=== PATIENT | male | born 1945 | race Hispanic/Latino ===

== ENCOUNTER 2020-07-13 14:02 | Inpatient (IN) | payer MEDICARE, OTHER ==
--- NOTE | 2020-07-13 16:17 | Cat Scan Report ---
CT BRAIN: 07/13/2020 INDICATION / CLINICAL INFORMATION: Altered Mental Status. COMPARISON: None available. FINDINGS: BRAIN/INTRACRANIAL STRUCTURES: Unenhanced CT images of the brain demonstrate no evidence of acute int racranial abnormality. Ventricles and sulci are prominent in size, consistent with prominent diffuse cerebral atrophy. There is no evidence of acute ischemic injury, hemorrhage, or mass. There are no abnormal extra-axial fluid collections. Atherosclerotic vascular calcifications are present in the distal internal carotid arteries and verte bral arteries. EXTRACRANIAL STRUCTURES: Unremarkable. IMPRESSION: No acute abnormality. Diffuse cerebral atrophy. All CT scans at this location are performed using dose reduction to ALARA by means of automated expos ure control. Signer Name: Ji Wolff MD Signed: 07/13/2020 4:12 PM Workstation Name: [id number]
[2020-07-13 16:32] LABS: Basophils % (Auto) 1.3 % (0.0-1.8); Eosinophils # (Auto) 0.1 K/mm3 (0.0-0.4); Hematocrit 40.3 % (35.5-45.6); Hemoglobin 13.1 gm/dl (11.8-15.2); Lymphocytes % (Auto) 25.7 % (13.4-35.0); Mean Corpuscular HGB Conc 33 % (32-34); Mean Corpuscular Volume 97 fl (84-94); Monocytes # (Auto) 0.3 K/mm3 (0.0-0.8); Monocytes % (Auto) 8.6 % (0.0-7.3); Red Blood Count 4.14 M/mm3 (3.65-5.03); Red Cell Distribution Width 17.3 % (13.2-15.2)
[2020-07-13 16:35] LABS: Platelet Count 92 K/mm3 (140-440)
--- NOTE | 2020-07-13 16:36 | XRay Report ---
CHEST 1 VIEW INDICATION: Altered Mental Status. COMPARISON: None FINDINGS: Support devices: None. Heart: Within normal limits. Lungs/Pleura: No acute air space or interstitial disease. Additional findings: None. IMPRESSION: No acute findings. Signer Name: Eric Dale Jr, MD Signed: 07/13/2020 4:31 PM Workstation Name: [id number]
[2020-07-13 16:42] LABS: INR 0.89 (0.87-1.13)
[2020-07-13 16:43] LABS: Partial Thromboplastin Time 26.7 Sec. (24.2-36.6)
[2020-07-13 16:55] LABS: Albumin 3.4 g/dL (3.9-5); Calcium 9.2 mg/dL (8.4-10.2)
[2020-07-13 17:20] LABS: Chol/HDL Ratio 3.1 %
[2020-07-13] MEDS ORDERED: niCARdipine DRIP 40 MG/200 ML BAG IV ONE (18:37)
--- NOTE | 2020-07-13 18:42 | Emergency Department Report ---
ED General Adult HPI - General Chief complaint: High BP Stated complaint: HIGH BLOOD PRESSURE Time Seen by Provider: 07/13/20 14:50 Source: EMS Mode of arrival: Stretcher Limitations: No Limitations - History of Present Illness Initial comments: Patient presents to the emergency department from a local dialysis center for altered mental status. Per reports the patient has baseline dementia but is normally able to carry on conversation. They state after dialysis the patient was confused and is not able to answer questions. It was also noticed that he was bleeding from his AV fistula and he was severely hypertensive. Patient is unable to add to history. -: Sudden Radiation: non-radiation Consistency: constant Improves with: none Worsens with: none Treatments Prior to Arrival: none - Related Data Home Medications Medication Instructions Recorded Confirmed Last Taken Aspirin [Adult Aspirin] 81 mg PO DAILY 07/13/20 07/13/20 Unknown Atorvastatin Calcium [Lipitor] 10 mg PO DAILY 07/13/20 07/13/20 Unknown Gabapentin [Neurontin] 200 mg PO Q2D 07/13/20 07/13/20 Unknown Insulin Glargine [Lantus VIAL] 5 unit SUB-Q BID 07/13/20 07/13/20 Unknown Tamsulosin [Flomax] 0.4 mg PO QDAY 07/13/20 07/13/20 Unknown Venlafaxine [Effexor 25mg tab] 25 mg PO BID 07/13/20 07/13/20 Unknown allopurinoL [Zyloprim] 100 mg PO QDAY 07/13/20 07/13/20 Unknown cloNIDine [Catapres] 0.3 mg PO BID 07/13/20 07/13/20 Unknown Allergies Allergy/AdvReac Type Severity Reaction Status Date / Time acetaminophen [From Percocet] Allergy Unknown Verified 07/13/20 14:52 oxycodone [From Percocet] Allergy Unknown Verified 07/13/20 14:52 lisinopril AdvReac Unknown Verified 07/13/20 14:53 ED Review of Systems ROS: Stated complaint: HIGH BLOOD PRESSURE Other details as noted in HPI Comment: Unobtainable due to pts medical conditions ED Past Medical Hx - Past Medical History Hx Hypertension: Yes Hx Diabetes: Yes Hx Deep Vein Thrombosis: Yes Hx Renal Disease: Yes Hx Dementia: Yes Additional medical history: cholangio carcinoma - Surgical History Past Surgical History?: No - Social History Smoking Status: Never Smoker Substance Use Type: None - Medications Home Medications: Home Medications Medication Instructions Recorded Confirmed Last Taken Type Aspirin [Adult Aspirin] 81 mg PO DAILY 07/13/20 07/13/20 Unknown History Atorvastatin Calcium [Lipitor] 10 mg PO DAILY 07/13/20 07/13/20 Unknown History Gabapentin [Neurontin] 200 mg PO Q2D 07/13/20 07/13/20 Unknown History Insulin Glargine [Lantus VIAL] 5 unit SUB-Q BID 07/13/20 07/13/20 Unknown History Tamsulosin [Flomax] 0.4 mg PO QDAY 07/13/20 07/13/20 Unknown History Venlafaxine [Effexor 25mg tab] 25 mg PO BID 07/13/20 07/13/20 Unknown History allopurinoL [Zyloprim] 100 mg PO QDAY 07/13/20 07/13/20 Unknown History cloNIDine [Catapres] 0.3 mg PO BID 07/13/20 07/13/20 Unknown History ED Physical Exam - General Limitations: No Limitations General appearance: other (Altered ) - Head Head exam: Present: atraumatic, normocephalic - Eye Eye exam: Present: normal appearance, PERRL, EOMI - ENT ENT exam: Present: mucous membranes dry - Neck Neck exam: Present: normal inspection - Respiratory Respiratory exam: Present: normal lung sounds bilaterally, respiratory distress - Cardiovascular Cardiovascular Exam: Present: regular rate, normal rhythm, other (Patient was with the clamp to his fistula of his left arm with a dressing distal to it.) - GI/Abdominal GI/Abdominal exam: Present: soft, normal bowel sounds. Absent: distended, tenderness - Neurological Exam Neurological exam: Present: altered - Psychiatric Psychiatric exam: Present: other (Unable to assess due to the patient's condition) - Skin Skin exam: Present: warm, dry, intact, normal color. Absent: rash ED Course Vital Signs 07/13/20 07/13/20 07/13/20 14:27 14:32 14:46 Temperature 97.9 F Pulse Rate 78 80 85 Respiratory 17 14 14 Rate Blood Pressure 225/129 225/129 225/129 Blood Pressure 225/129 [Right] O2 Sat by Pulse 97 98 Oximetry 07/13/20 07/13/20 07/13/20 15:00 15:16 15:30 Temperature Pulse Rate 75 Respiratory 14 Rate Blood Pressure 216/125 232/113 240/123 Blood Pressure [Right] O2 Sat by Pulse 97 96 97 Oximetry 07/13/20 07/13/20 07/13/20 15:46 16:02 16:16 Temperature Pulse Rate Respiratory Rate Blood Pressure 240/123 245/115 245/115 Blood Pressure [Right] O2 Sat by Pulse 91 100 92 Oximetry 07/13/20 07/13/20 07/13/20 17:00 17:15 17:30 Temperature Pulse Rate 96 H 100 H Respiratory 18 Rate Blood Pressure 245/115 245/115 232/131 Blood Pressure [Right] O2 Sat by Pulse Oximetry 07/13/20 17:45 Temperature Pulse Rate 79 Respiratory Rate Blood Pressure 261/131 Blood Pressure [Right] O2 Sat by Pulse Oximetry ED Medical Decision Making - Lab Data Result diagrams: 07/13/20 16:13 07/13/20 16:13 Lab Results 07/13/20 07/13/20 07/13/20 Range/Units 16:13 16:13 16:13 WBC 3.9 L (4.5-11.0) K/mm3 RBC 4.14 (3.65-5.03) M/mm3 Hgb 13.1 (11.8-15.2) gm/dl Hct 40.3 (35.5-45.6) % MCV 97 H (84-94) fl MCH 32 (28-32) pg MCHC 33 (32-34) % RDW 17.3 H (13.2-15.2) % Plt Count 92 L (140-440) K/mm3 Lymph % (Auto) 25.7 (13.4-35.0) % [place] % (Auto) 8.6 H (0.0-7.3) % Eos % (Auto) 3.0 (0.0-4.3) % Baso % (Auto) 1.3 (0.0-1.8) % Lymph # (Auto) 1.0 L (1.2-5.4) K/mm3 [place] # (Auto) 0.3 (0.0-0.8) K/mm3 Eos # (Auto) 0.1 (0.0-0.4) K/mm3 Baso # (Auto) 0.0 (0.0-0.1) K/mm3 Seg Neutrophils % 61.4 (40.0-70.0) % Seg Neutrophils # 2.4 (1.8-7.7) K/mm3 PT 12.2 (12.2-14.9) Sec. INR 0.89 (0.87-1.13) APTT 26.7 (24.2-36.6) Sec. Sodium (137-145) mmol/L Potassium (3.6-5.0) mmol/L Chloride (98-107) mmol/L Carbon Dioxide (22-30) mmol/L Anion Gap mmol/L BUN (9-20) mg/dL Creatinine (0.8-1.3) mg/dL Estimated GFR ml/min BUN/Creatinine Ratio % Glucose (75-100) mg/dL Lactic Acid 1.80 (0.7-2.0) mmol/L Calcium (8.4-10.2) mg/dL Total Bilirubin (0.1-1.2) mg/dL AST (5-40) units/L ALT (7-56) units/L Alkaline Phosphatase (35-129) units/L Ammonia (25-60) umol/L Troponin T (0.00-0.029) ng/mL Total Protein (6.3-8.2) g/dL Albumin (3.9-5) g/dL Albumin/Globulin Ratio % Triglycerides (2-149) mg/dL Cholesterol (50-199) mg/dL LDL Cholesterol Direct (50-130) mg/dL HDL Cholesterol (40-59) mg/dL Cholesterol/HDL Ratio % Salicylates (2.8-20.0) mg/dL Acetaminophen (10.0-30.0) ug/mL Plasma/Serum Alcohol (0-0.07) % 07/13/20 07/13/20 07/13/20 Range/Units 16:13 16:13 16:13 WBC (4.5-11.0) K/mm3 RBC (3.65-5.03) M/mm3 Hgb (11.8-15.2) gm/dl Hct (35.5-45.6) % MCV (84-94) fl MCH (28-32) pg MCHC (32-34) % RDW (13.2-15.2) % Plt Count (140-440) K/mm3 Lymph % (Auto) (13.4-35.0) % [place] % (Auto) (0.0-7.3) % Eos % (Auto) (0.0-4.3) % Baso % (Auto) (0.0-1.8) % Lymph # (Auto) (1.2-5.4) K/mm3 [place] # (Auto) (0.0-0.8) K/mm3 Eos # (Auto) (0.0-0.4) K/mm3 Baso # (Auto) (0.0-0.1) K/mm3 Seg Neutrophils % (40.0-70.0) % Seg Neutrophils # (1.8-7.7) K/mm3 PT (12.2-14.9) Sec. INR (0.87-1.13) APTT (24.2-36.6) Sec. Sodium 145 (137-145) mmol/L Potassium 4.7 (3.6-5.0) mmol/L Chloride 100.7 (98-107) mmol/L Carbon Dioxide 28 (22-30) mmol/L Anion Gap 21 mmol/L BUN 45 H (9-20) mg/dL Creatinine 6.0 H (0.8-1.3) mg/dL Estimated GFR 9 ml/min BUN/Creatinine Ratio 8 % Glucose 128 H (75-100) mg/dL Lactic Acid (0.7-2.0) mmol/L Calcium 9.2 (8.4-10.2) mg/dL Total Bilirubin 0.90 (0.1-1.2) mg/dL AST 27 (5-40) units/L ALT 13 (7-56) units/L Alkaline Phosphatase 72 (35-129) units/L Ammonia 28.0 (25-60) umol/L Troponin T 0.158 H* (0.00-0.029) ng/mL Total Protein 6.4 (6.3-8.2) g/dL Albumin 3.4 L (3.9-5) g/dL Albumin/Globulin Ratio 1.1 % Triglycerides 81 (2-149) mg/dL Cholesterol 146 (50-199) mg/dL LDL Cholesterol Direct 88 (50-130) mg/dL HDL Cholesterol 47 (40-59) mg/dL Cholesterol/HDL Ratio 3.10 % Salicylates < 0.3 L (2.8-20.0) mg/dL Acetaminophen (10.0-30.0) ug/mL Plasma/Serum Alcohol (0-0.07) % 07/13/20 07/13/20 Range/Units 16:13 16:13 WBC (4.5-11.0) K/mm3 RBC (3.65-5.03) M/mm3 Hgb (11.8-15.2) gm/dl Hct (35.5-45.6) % MCV (84-94) fl MCH (28-32) pg MCHC (32-34) % RDW (13.2-15.2) % Plt Count (140-440) K/mm3 Lymph % (Auto) (13.4-35.0) % [place] % (Auto) (0.0-7.3) % Eos % (Auto) (0.0-4.3) % Baso % (Auto) (0.0-1.8) % Lymph # (Auto) (1.2-5.4) K/mm3 [place] # (Auto) (0.0-0.8) K/mm3 Eos # (Auto) (0.0-0.4) K/mm3 Baso # (Auto) (0.0-0.1) K/mm3 Seg Neutrophils % (40.0-70.0) % Seg Neutrophils # (1.8-7.7) K/mm3 PT (12.2-14.9) Sec. INR (0.87-1.13) APTT (24.2-36.6) Sec. Sodium (137-145) mmol/L Potassium (3.6-5.0) mmol/L Chloride (98-107) mmol/L Carbon Dioxide (22-30) mmol/L Anion Gap mmol/L BUN (9-20) mg/dL Creatinine (0.8-1.3) mg/dL Estimated GFR ml/min BUN/Creatinine Ratio % Glucose (75-100) mg/dL Lactic Acid (0.7-2.0) mmol/L Calcium (8.4-10.2) mg/dL Total Bilirubin (0.1-1.2) mg/dL AST (5-40) units/L ALT (7-56) units/L Alkaline Phosphatase (35-129) units/L Ammonia (25-60) umol/L Troponin T (0.00-0.029) ng/mL Total Protein (6.3-8.2) g/dL Albumin (3.9-5) g/dL Albumin/Globulin Ratio % Triglycerides (2-149) mg/dL Cholesterol (50-199) mg/dL LDL Cholesterol Direct (50-130) mg/dL HDL Cholesterol (40-59) mg/dL Cholesterol/HDL Ratio % Salicylates (2.8-20.0) mg/dL Acetaminophen 5.0 L (10.0-30.0) ug/mL Plasma/Serum Alcohol < 0.01 (0-0.07) % - Medical Decision Making I did discontinue the patient's clamp and slowly remove the dressing of his AV fistula and there is no bleeding currently. A pressure dressing was reapplied to the area. Patient had 20 mg of labetalol IV with his blood pressure still be at 250/110 thus a Cardene drip was ordered Critical Care Time: Yes Critical care time in (mins) excluding proc time.: 35 Critical care attestation.: If time is entered above; I have spent that time in minutes in the direct care of this critically ill patient, excluding procedure time. ED Disposition Clinical Impression: Hypertensive encephalopathy, Altered mental status Disposition: DC-09 OP ADMIT IP TO THIS HOSP Is pt being admited?: Yes Does the pt Need Aspirin: No Condition: Fair Referrals: PRIMARY CARE, [Primary Care Provider] - 3-5 Days
[2020-07-13] MEDS ORDERED: GABAPENTIN 100 MG CAP PO SCH (22:00)
[2020-07-13] MEDS ORDERED: ONDANSETRON 4 MG/2 ML INJ IV PRN (23:08)
[2020-07-13] MEDS ORDERED: oxyCODONE /ACETAMINOPHEN 5-325MG TAB PO PRN (23:08)
[2020-07-13] MEDS ORDERED: ACETAMINOPHEN 325 MG TAB PO PRN (23:08)
[2020-07-13] MEDS ORDERED: HYDROmorphone 1 MG/1 ML INJ IV PRN (23:08)
--- NOTE | 2020-07-13 23:16 | History and Physical Report ---
History of Present Illness Date of examination: 07/13/20 Date of admission: 07/13/20 19:16 Chief complaint: Altered sensorium for the last 3 to 4 hours History of present illness: 75-year-old male with history of hypertension, end-stage renal disease, insulin-dependent diabetes, BPH, gout and peripheral neuropathy presents to the emergency room for altered mental status. Patient unable to answer questions and is very confused. Patient became altered after dialysis. Patient also has bleeding from his AV fistula site. In the emergency room his blood pressure was around 240/130. Also patient was lethargic and decreased responsiveness. No fever or chills. No exposure to coronavirus. - Past Medical History Hypertension: Yes Diabetes: Yes Deep Vein Thrombosis: Yes Renal Disease: Yes Dementia: Yes Additional medical history: cholangio carcinoma - Surgical History Past Surgical History?: No - Social History Smoking Status: Never Smoker Substance Use Type: None Family history Htn - Medications Home Medications: Home Medications Medication Instructions Recorded Confirmed Last Taken Type Aspirin [Adult Aspirin] 81 mg PO DAILY 07/13/20 07/13/20 Unknown History Atorvastatin Calcium [Lipitor] 10 mg PO DAILY 07/13/20 07/13/20 Unknown History Gabapentin [Neurontin] 200 mg PO Q2D 07/13/20 07/13/20 Unknown History Insulin Glargine [Lantus VIAL] 5 unit SUB-Q BID 07/13/20 07/13/20 Unknown History Tamsulosin [Flomax] 0.4 mg PO QDAY 07/13/20 07/13/20 Unknown History Venlafaxine [Effexor 25mg tab] 25 mg PO BID 07/13/20 07/13/20 Unknown History allopurinoL [Zyloprim] 100 mg PO QDAY 07/13/20 07/13/20 Unknown History cloNIDine [Catapres] 0.3 mg PO BID 07/13/20 07/13/20 Unknown History Review of Systems ROS: Constitutional altered sensorium HEENT no sore throat no post nasal drip no diplopia Neck no neck stiffness no lymph gland enlargement Chest and lungs no shortness of breath cough or wheezing CVS no chest pain no diaphoresis no palpitations GI no nausea no vomiting no diarrhea Genitourinary system no dysuria no flank pain Musculoskeletal system no muscle pains no joint pains 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 no syncope no seizures Skin no rash no itching Psychiatric no depression no homicidal or suicidal tendencies Hematologic no lymphedema or bruising Endocrine no polydipsia no polyuria no cold intolerance no heat intolerance Medications and Allergies Allergies Allergy/AdvReac Type Severity Reaction Status Date / Time acetaminophen [From Percocet] Allergy Unknown Verified 07/13/20 14:52 oxycodone [From Percocet] Allergy Unknown Verified 07/13/20 14:52 lisinopril AdvReac Unknown Verified 07/13/20 14:53 Home Medications Medication Instructions Recorded Confirmed Last Taken Type Aspirin [Adult Aspirin] 81 mg PO DAILY 07/13/20 07/13/20 Unknown History Atorvastatin Calcium [Lipitor] 10 mg PO DAILY 07/13/20 07/13/20 Unknown History Gabapentin [Neurontin] 200 mg PO Q2D 07/13/20 07/13/20 Unknown History Insulin Glargine [Lantus VIAL] 5 unit SUB-Q BID 07/13/20 07/13/20 Unknown History Tamsulosin [Flomax] 0.4 mg PO QDAY 07/13/20 07/13/20 Unknown History Venlafaxine [Effexor 25mg tab] 25 mg PO BID 07/13/20 07/13/20 Unknown History allopurinoL [Zyloprim] 100 mg PO QDAY 07/13/20 07/13/20 Unknown History cloNIDine [Catapres] 0.3 mg PO BID 07/13/20 07/13/20 Unknown History Active Meds: Active Medications Nicardipine/Sodium Chloride (Cardene Drip 40 Mg/200 Ml) 40 mg in 200 mls @ 25 mls/hr IV ONCE ONE; Protocol Stop: 07/14/20 02:36 Last Titration: 07/13/20 22:04 Dose: 5 mg/hr, 25 mls/hr Documented by: Exam - Constitutional Vitals: Temp Pulse Resp BP Pulse Ox 98.1 F 84 14 206/74 99 07/13/20 19:00 07/13/20 22:45 07/13/20 22:45 07/13/20 22:45 07/13/20 22:45 General appearance: Present: no acute distress, well-nourished - EENT Eyes: Present: PERRL ENT: hearing intact, clear oral mucosa - Neck Neck: Present: supple, normal ROM - Respiratory Respiratory effort: normal Respiratory: bilateral: CTA - Cardiovascular Heart rate: 78 Rhythm: regular Heart Sounds: Present: S1 & S2. Absent: rub, click - Extremities Extremities: no ischemia, pulses intact, pulses symmetrical, No edema Peripheral Pulses: within normal limits - Abdominal General gastrointestinal: Present: soft, non-tender, non-distended, normal bowel sounds Male genitourinary: Present: normal - Integumentary Integumentary: Present: clear, warm, dry - Musculoskeletal Musculoskeletal: gait normal, strength equal bilaterally - Psychiatric Psychiatric: appropriate mood/affect, intact judgment & insight - Neurologic Neurologic: CNII-XII intact, moves all extremities - Allied Health Allied health notes reviewed: nursing, case management HEART Score - HEART Score History: Moderately suspicious Age: > 65 Risk factors: > 3 risk factors or hx of atherosclerotic disease Troponin: Troponin T 0.158 ng/mL (0.00-0.029) H* 07/13/20 16:13 Troponin: 1-3x normal limit - Critical Actions Critical Actions: 4-6 pts:12-16.6% risk of adverse cardiac event. Should be admitted Results - Labs CBC & Chem 7: 07/14/20 05:48 07/13/20 16:13 Labs: Laboratory Last Values WBC 3.9 K/mm3 (4.5-11.0) L 07/13/20 16:13 RBC 4.14 M/mm3 (3.65-5.03) 07/13/20 16:13 Hgb 13.1 gm/dl (11.8-15.2) 07/13/20 16:13 Hct 40.3 % (35.5-45.6) 07/13/20 16:13 MCV 97 fl (84-94) H 07/13/20 16:13 MCH 32 pg (28-32) 07/13/20 16:13 MCHC 33 % (32-34) 07/13/20 16:13 RDW 17.3 % (13.2-15.2) H 07/13/20 16:13 Plt Count 92 K/mm3 (140-440) L 07/13/20 16:13 Lymph % (Auto) 25.7 % (13.4-35.0) 07/13/20 16:13 [place] % (Auto) 8.6 % (0.0-7.3) H 07/13/20 16:13 Eos % (Auto) 3.0 % (0.0-4.3) 07/13/20 16:13 Baso % (Auto) 1.3 % (0.0-1.8) 07/13/20 16:13 Lymph # (Auto) 1.0 K/mm3 (1.2-5.4) L 07/13/20 16:13 [place] # (Auto) 0.3 K/mm3 (0.0-0.8) 07/13/20 16:13 Eos # (Auto) 0.1 K/mm3 (0.0-0.4) 07/13/20 16:13 Baso # (Auto) 0.0 K/mm3 (0.0-0.1) 07/13/20 16:13 Seg Neutrophils % 61.4 % (40.0-70.0) 07/13/20 16:13 Seg Neutrophils # 2.4 K/mm3 (1.8-7.7) 07/13/20 16:13 PT 12.2 Sec. (12.2-14.9) 07/13/20 16:13 INR 0.89 (0.87-1.13) 07/13/20 16:13 APTT 26.7 Sec. (24.2-36.6) 07/13/20 16:13 Sodium 145 mmol/L (137-145) 07/13/20 16:13 Potassium 4.7 mmol/L (3.6-5.0) 07/13/20 16:13 Chloride 100.7 mmol/L (98-107) 07/13/20 16:13 Carbon Dioxide 28 mmol/L (22-30) 07/13/20 16:13 Anion Gap 21 mmol/L 07/13/20 16:13 BUN 45 mg/dL (9-20) H 07/13/20 16:13 Creatinine 6.0 mg/dL (0.8-1.3) H 07/13/20 16:13 Estimated GFR 9 ml/min 07/13/20 16:13 BUN/Creatinine Ratio 8 % 07/13/20 16:13 Glucose 128 mg/dL (75-100) H 07/13/20 16:13 Lactic Acid 1.80 mmol/L (0.7-2.0) 07/13/20 16:13 Calcium 9.2 mg/dL (8.4-10.2) 07/13/20 16:13 Total Bilirubin 0.90 mg/dL (0.1-1.2) 07/13/20 16:13 AST 27 units/L (5-40) 07/13/20 16:13 ALT 13 units/L (7-56) 07/13/20 16:13 Alkaline Phosphatase 72 units/L (35-129) 07/13/20 16:13 Ammonia 28.0 umol/L (25-60) 07/13/20 16:13 Troponin T 0.158 ng/mL (0.00-0.029) H* 07/13/20 16:13 NT-Pro-B Natriuret Pep 10406 pg/mL (0-900) H 07/13/20 18:22 Total Protein 6.4 g/dL (6.3-8.2) 07/13/20 16:13 Albumin 3.4 g/dL (3.9-5) L 07/13/20 16:13 Albumin/Globulin Ratio 1.1 % 07/13/20 16:13 Triglycerides 81 mg/dL (2-149) 07/13/20 16:13 Cholesterol 146 mg/dL (50-199) 07/13/20 16:13 LDL Cholesterol Direct 88 mg/dL (50-130) 07/13/20 16:13 HDL Cholesterol 47 mg/dL (40-59) 07/13/20 16:13 Cholesterol/HDL Ratio 3.10 % 07/13/20 16:13 Salicylates < 0.3 mg/dL (2.8-20.0) L 07/13/20 16:13 Acetaminophen 5.0 ug/mL (10.0-30.0) L 07/13/20 16:13 Plasma/Serum Alcohol < 0.01 % (0-0.07) 07/13/20 16:13 Short CBC 07/13/20 07/14/20 Range/Units 16:13 05:48 WBC 3.9 L 4.8 (4.5-11.0) K/mm3 Hgb 13.1 12.0 (11.8-15.2) gm/dl Hct 40.3 36.5 (35.5-45.6) % Plt Count 92 L 98 L (140-440) K/mm3 BMP 07/13/20 07/14/20 16:13 05:48 Sodium 145 144 Potassium 4.7 4.6 Chloride 100.7 98.9 Carbon Dioxide 28 22 BUN 45 H 51 H Creatinine 6.0 H 6.9 H Glucose 128 H 168 H Calcium 9.2 8.9 Cardiac Enzymes 07/13/20 Range/Units 16:13 Troponin T 0.158 H* (0.00-0.029) ng/mL Liver Function 07/13/20 07/14/20 Range/Units 16:13 05:48 Total Bilirubin 0.90 0.70 (0.1-1.2) mg/dL AST 27 23 (5-40) units/L ALT 13 13 (7-56) units/L Alkaline Phosphatase 72 75 (35-129) units/L Albumin 3.4 L 3.4 L (3.9-5) g/dL Microbiology: Microbiology 07/13/20 16:17 Peripheral/Venous Blood Culture - Preliminary Culture in Progress 07/13/20 16:13 Peripheral/Venous Blood Culture - Preliminary Culture in Progress - Imaging and Cardiology EKG: report reviewed (Sinus rhythm LVH) Imaging and Cardiology: Chest x-ray No acute findings Head CT No acute abnormality diffuse cerebral atrophy [place]/IV: IV Catheter Type [Right INT / Saline Lock Antecubital] Assessment and Plan Assessment and plan: Critical care statement The high probability OF a clinically significant sudden or life-threatening deterioration of the cardiorespiratory system and endocrine system required my full and direct attention, intervention and postoperative management. The aggregate critical care time was 40 minutes. The time is in addition to time spent performing reported procedures but includes the followin: Data review and interpretation 2: Patient assessment and monitoring of vital signs 3: Documentation 4:: Medication orders and management Advance Directives: Yes (Full code) VTE prophylaxis?: Chemical Plan of care discussed with patient/family: Yes - Patient Problems (1) Hypertensive encephalopathy Current Visit: Yes Status: Acute Plan to address problem: Patient with altered sensorium and blood pressure of 225/129 (2) End stage renal disease on dialysis Current Visit: Yes Status: Chronic Plan to address problem: Patient had dialysis today Nephrology consulted (3) Insulin dependent diabetes mellitus Current Visit: Yes Status: Chronic Plan to address problem: Check hemoglobin A1c and continue home insulin Coverage for now with moderate dose sliding scale protocol (4) Peripheral neuropathy Current Visit: Yes Status: Chronic Qualifiers: Peripheral neuropathy type: polyneuropathy, unspecified Qualified Code(s): G62.9 - Polyneuropathy, unspecified Plan to address problem: Patient initiated on gabapentin (5) BPH (benign prostatic hyperplasia) Current Visit: Yes Status: Chronic Qualifiers: Lower urinary tract symptom presence: symptoms present Plan to address problem: Continue Flomax (6) Gout Current Visit: Yes Status: Inactive Plan to address problem: Continue allopurinol 100 mg once a day for prevention (7) DVT prophylaxis Current Visit: Yes Status: Acute Plan to address problem: On heparin and GI prophylaxis
[2020-07-13] MEDS ORDERED: cloNIDine 0.2 MG TAB PO SCH (23:45)
[2020-07-13] MEDS ORDERED: cloNIDine 0.1 MG TAB PO SCH (23:45)
[2020-07-13] MEDS: INSULIN GLARGINE 100 UNITS/ML SUB-Q SCH (23:52)
[2020-07-14] MEDS: hydrALAZINE 25 MG TAB PO SCH ×4 (00:03→22:03)
[2020-07-14] MEDS: HEPARIN 5,000 UNIT/1 ML VIAL SUB-Q SCH ×3 (00:03→22:04)
[2020-07-14] MEDS: VALSARTAN 160MG TAB PO SCH ×2 (00:03→11:54)
[2020-07-14] MEDS: VENLAFAXINE 25 MG TAB PO SCH ×3 (00:04→21:59)
[2020-07-14] MEDS: niCARdipine 50 MG in SODIUM CHLORIDE 0.9% 250ML 230 ML IV SCH ×2 (01:31→09:39)
[2020-07-14 06:17] LABS: Basophils % (Auto) 0.4 % (0.0-1.8); Eosinophils # (Auto) 0.2 K/mm3 (0.0-0.4); Eosinophils % (Auto) 4.9 % (0.0-4.3); Hematocrit 36.5 % (35.5-45.6); Lymphocytes # (Auto) 1.3 K/mm3 (1.2-5.4); Lymphocytes % (Auto) 27.1 % (13.4-35.0); Mean Corpuscular HGB Conc 33 % (32-34); Mean Corpuscular Volume 97 fl (84-94); Monocytes # (Auto) 0.5 K/mm3 (0.0-0.8); Monocytes % (Auto) 9.9 % (0.0-7.3); Red Blood Count 3.77 M/mm3 (3.65-5.03); Red Cell Distribution Width 17.6 % (13.2-15.2)
[2020-07-14 06:20] LABS: Platelet Count 98 K/mm3 (140-440)
[2020-07-14 06:30] LABS: Albumin 3.4 g/dL (3.9-5); Calcium 8.9 mg/dL (8.4-10.2)
[2020-07-14] MEDS: INSULIN LISPRO 100 UNIT/ML VIAL 3 mL SUB-Q SCH ×4 (08:23→22:05)
[2020-07-14] MEDS ORDERED: cloNIDine 0.1 MG TAB PO SCH (10:00)
[2020-07-14] MEDS: cloNIDine 0.1 MG TAB PO SCH ×3 (10:15→22:04)
[2020-07-14] MEDS: ASPIRIN EC 81 MG TAB PO SCH (10:16)
[2020-07-14] MEDS: FAMOTIDINE 10 MG TAB PO SCH ×2 (10:16→22:04)
[2020-07-14] MEDS: INSULIN GLARGINE 100 UNITS/ML SUB-Q SCH ×2 (10:16→22:04)
[2020-07-14] MEDS: TAMSULOSIN 0.4 MG CAP PO SCH (10:16)
[2020-07-14] MEDS: allopurinoL 100 MG TAB PO SCH (10:16)
--- NOTE | 2020-07-14 10:22 | Progress Note ---
Assessment and Plan Assessment and plan: -- Hypertensive encephalopathy Current Visit: Yes Status: Acute Plan to address problem: Patient with altered sensorium and blood pressure of 225/129 -- End stage renal disease on dialysis Current Visit: Yes Status: Chronic Plan to address problem: Patient had dialysis today Nephrology consulted -- Insulin dependent diabetes mellitus Current Visit: Yes Status: Chronic Plan to address problem: Check hemoglobin A1c and continue home insulin Coverage for now with moderate dose sliding scale protocol --Peripheral neuropathy Current Visit: Yes Status: Chronic Plan to address problem: Patient initiated on gabapentin -- BPH (benign prostatic hyperplasia) Current Visit: Yes Status: Chronic Plan to address problem: Continue Flomax -- Gout Current Visit: Yes Status: Inactive Plan to address problem: Continue allopurinol 100 mg once a day for prevention -- DVT prophylaxis Current Visit: Yes Status: Acute Plan to address problem: On heparin and GI prophylaxis History Interval history: I have seen and examined the patient at the bedside in ICU this morning Patient's chart medications tests and reports reviewed Patient was admitted with hypertensive emergency on Cardene drip Pressures moderate control on Cardene drip Patient denies chest pain or shortness of breath Vital signs noted Hospitalist Physical - Constitutional Vitals: Temp Pulse Resp BP Pulse Ox 99.0 F 88 17 164/64 100 07/14/20 08:00 07/14/20 10:15 07/14/20 10:00 07/14/20 10:15 07/14/20 10:00 General appearance: Present: no acute distress, well-nourished - EENT Eyes: Present: PERRL, EOM intact - Neck Neck: Present: supple, normal ROM - Respiratory Respiratory effort: normal Respiratory: bilateral: diminished, negative: rales, rhonchi, wheezing - Cardiovascular Rhythm: regular Heart Sounds: Present: S1 & S2 - Extremities Extremities: no ischemia, No edema - Abdominal General gastrointestinal: soft, non-tender, non-distended - Integumentary Integumentary: Present: clear, warm - Psychiatric Psychiatric: other (Confused, dementia) - Neurologic Neurologic: moves all extremities, other (Confused, dementia) HEART Score - HEART Score Age: > 65 Risk factors: > 3 risk factors or hx of atherosclerotic disease Troponin: Troponin T 0.158 ng/mL (0.00-0.029) H* 07/13/20 16:13 Troponin: 1-3x normal limit - Critical Actions Critical Actions: 4-6 pts:12-16.6% risk of adverse cardiac event. Should be admitted Results - Labs CBC & Chem 7: 07/14/20 05:48 07/14/20 05:48 Labs: Laboratory Last Values WBC 4.8 K/mm3 (4.5-11.0) 07/14/20 05:48 RBC 3.77 M/mm3 (3.65-5.03) 07/14/20 05:48 Hgb 12.0 gm/dl (11.8-15.2) 07/14/20 05:48 Hct 36.5 % (35.5-45.6) 07/14/20 05:48 MCV 97 fl (84-94) H 07/14/20 05:48 MCH 32 pg (28-32) 07/14/20 05:48 MCHC 33 % (32-34) 07/14/20 05:48 RDW 17.6 % (13.2-15.2) H 07/14/20 05:48 Plt Count 98 K/mm3 (140-440) L 07/14/20 05:48 Lymph % (Auto) 27.1 % (13.4-35.0) 07/14/20 05:48 [place] % (Auto) 9.9 % (0.0-7.3) H 07/14/20 05:48 Eos % (Auto) 4.9 % (0.0-4.3) H 07/14/20 05:48 Baso % (Auto) 0.4 % (0.0-1.8) 07/14/20 05:48 Lymph # (Auto) 1.3 K/mm3 (1.2-5.4) 07/14/20 05:48 [place] # (Auto) 0.5 K/mm3 (0.0-0.8) 07/14/20 05:48 Eos # (Auto) 0.2 K/mm3 (0.0-0.4) 07/14/20 05:48 Baso # (Auto) 0.0 K/mm3 (0.0-0.1) 07/14/20 05:48 Seg Neutrophils % 57.7 % (40.0-70.0) 07/14/20 05:48 Seg Neutrophils # 2.8 K/mm3 (1.8-7.7) 07/14/20 05:48 PT 12.2 Sec. (12.2-14.9) 07/13/20 16:13 INR 0.89 (0.87-1.13) 07/13/20 16:13 APTT 26.7 Sec. (24.2-36.6) 07/13/20 16:13 Sodium 144 mmol/L (137-145) 07/14/20 05:48 Potassium 4.6 mmol/L (3.6-5.0) 07/14/20 05:48 Chloride 98.9 mmol/L (98-107) 07/14/20 05:48 Carbon Dioxide 22 mmol/L (22-30) 07/14/20 05:48 Anion Gap 28 mmol/L 07/14/20 05:48 BUN 51 mg/dL (9-20) H 07/14/20 05:48 Creatinine 6.9 mg/dL (0.8-1.3) H 07/14/20 05:48 Estimated GFR 8 ml/min 07/14/20 05:48 BUN/Creatinine Ratio 7 % 07/14/20 05:48 Glucose 168 mg/dL (75-100) H 07/14/20 05:48 POC Glucose 174 mg/dL (70-105) H 07/14/20 08:08 Hemoglobin A1c 6.2 % (4-6) H 07/13/20 23:00 Lactic Acid 1.80 mmol/L (0.7-2.0) 07/13/20 16:13 Calcium 8.9 mg/dL (8.4-10.2) 07/14/20 05:48 Total Bilirubin 0.70 mg/dL (0.1-1.2) 07/14/20 05:48 AST 23 units/L (5-40) 07/14/20 05:48 ALT 13 units/L (7-56) 07/14/20 05:48 Alkaline Phosphatase 75 units/L (35-129) 07/14/20 05:48 Ammonia 28.0 umol/L (25-60) 07/13/20 16:13 Troponin T 0.158 ng/mL (0.00-0.029) H* 07/13/20 16:13 NT-Pro-B Natriuret Pep 41754 pg/mL (0-900) H 07/13/20 18:22 Total Protein 6.0 g/dL (6.3-8.2) L 07/14/20 05:48 Albumin 3.4 g/dL (3.9-5) L 07/14/20 05:48 Albumin/Globulin Ratio 1.3 % 07/14/20 05:48 Triglycerides 81 mg/dL (2-149) 07/13/20 16:13 Cholesterol 146 mg/dL (50-199) 07/13/20 16:13 LDL Cholesterol Direct 88 mg/dL (50-130) 07/13/20 16:13 HDL Cholesterol 47 mg/dL (40-59) 07/13/20 16:13 Cholesterol/HDL Ratio 3.10 % 07/13/20 16:13 Salicylates < 0.3 mg/dL (2.8-20.0) L 07/13/20 16:13 Acetaminophen 5.0 ug/mL (10.0-30.0) L 07/13/20 16:13 Plasma/Serum Alcohol < 0.01 % (0-0.07) 07/13/20 16:13 Microbiology: Microbiology 07/13/20 16:17 Peripheral/Venous Blood Culture - Preliminary Culture in Progress 07/13/20 16:13 Peripheral/Venous Blood Culture - Preliminary Culture in Progress [place]/IV: IV Catheter Type [Right INT / Saline Lock Antecubital] Active Medications - Current Medications Current Medications: Generic Name Dose Route Start Last Admin Trade Name Freq PRN Reason Stop Dose Admin Acetaminophen 650 mg 07/13/20 23:08 Tylenol PO Q4H PRN Pain MILD(1-3)/Fever >100.5/MATUTE Allopurinol 100 mg 07/14/20 10:00 07/14/20 10:16 Zyloprim PO 100 mg QDAY TAMAR Administration Aspirin 81 mg 07/14/20 10:00 07/14/20 10:16 Halfprin Ec PO 81 mg DAILY TAMAR Administration Atorvastatin Calcium 10 mg 07/14/20 10:00 07/14/20 10:16 Atorvastatin PO 10 mg DAILY TAMAR Administration Clonidine HCl 0.3 mg 07/14/20 11:00 07/14/20 10:15 Catapres PO 0.3 mg Q8HR TAMAR Administration Famotidine 10 mg 07/14/20 10:00 07/14/20 10:16 Pepcid PO 10 mg BID TAMAR Administration Gabapentin 200 mg 07/13/20 22:00 07/14/20 00:03 Gabapentin PO 200 mg Q2D TAMAR Administration Heparin Sodium (Porcine) 5,000 unit 07/13/20 23:15 07/14/20 10:16 Heparin SUB-Q 5,000 unit Q12HR TAMAR Administration Hydralazine HCl 50 mg 07/13/20 23:45 07/14/20 06:06 Apresoline PO 50 mg Q8HR TAMAR Administration Hydromorphone HCl 0.5 mg 07/13/20 23:08 07/14/20 03:09 Dilaudid IV 0.5 mg Q3H PRN Administration Pain , Severe (7-10) Nicardipine HCl 50 mg/ Sodium 250 mls @ 25 mls/hr 07/14/20 02:00 07/14/20 09:39 Chloride IV 7.5 mg/hr TITR TAMAR 37.5 mls/hr Administration Protocol 5 MG/HR Insulin Glargine 5 units 07/13/20 23:45 07/14/20 10:16 Lantus SUB-Q 5 units BID TAMAR Administration Insulin Human Lispro 0 unit 07/14/20 07:30 07/14/20 08:23 Humalog SUB-Q 2 unit ACHS TAMAR Administration Protocol Ondansetron HCl 4 mg 07/13/20 23:08 Zofran IV Q8H PRN Nausea And Vomiting Sodium Chloride 10 ml 07/14/20 10:00 07/14/20 10:17 Sodium Chloride Flush Syringe 10 Ml IV 10 ml BID TAMAR Administration Sodium Chloride 10 ml 07/13/20 23:08 Sodium Chloride Flush Syringe 10 Ml IV PRN PRN LINE FLUSH Tamsulosin HCl 0.4 mg 07/14/20 10:00 07/14/20 10:16 Flomax PO 0.4 mg QDAY TAMAR Administration Valsartan 160 mg 07/13/20 23:45 07/14/20 00:03 Diovan PO 160 mg Q12H TAMAR Administration Venlafaxine HCl 25 mg 07/13/20 23:45 07/14/20 10:17 Effexor PO 25 mg BID TAMAR Administration
[2020-07-14] MEDS ORDERED: SODIUM CHLORIDE 0.9% 100 ML IV PRN (10:36)
--- NOTE | 2020-07-14 11:21 | Consultation ---
History of Present Illness - Reason for Consult Consult date: 07/14/20 Hypertensive Urgency Requesting physician: SAFIA GUAMAN - History of Present Illness 75 y/o male admitted from HD secondary to altered mental status post HD. IN the ED patient was found to hypertensive with systolics in the 240's. He was started on Cardene drip and admitted to the ICU overnight. He was given all of his oral home medication last night as well but still requiring cardene drip t his am at 7.5. Per , patient was in [facility] for about 5 weeks, then sent to a local rehab here in [place] where he had be going to HD 3x per week and is now admitted to the hospital here with hypertensive emergency and altered mental state. Mental state is much better with improved BP but still not controlled. Past History Past Medical History: diabetes, ESRD, hypertension, hyperlipidemia, other (BPH) Social history: no significant social history Family history: no significant family history Medications and Allergies Allergies Allergy/AdvReac Type Severity Reaction Status Date / Time acetaminophen [From Percocet] Allergy Unknown Verified 07/13/20 14:52 oxycodone [From Percocet] Allergy Unknown Verified 07/13/20 14:52 lisinopril AdvReac Unknown Verified 07/13/20 14:53 Home Medications Medication Instructions Recorded Confirmed Last Taken Type Aspirin [Adult Aspirin] 81 mg PO DAILY 07/13/20 07/13/20 Unknown History Atorvastatin Calcium [Lipitor] 10 mg PO DAILY 07/13/20 07/13/20 Unknown History Gabapentin [Neurontin] 200 mg PO Q2D 07/13/20 07/13/20 Unknown History Insulin Glargine [Lantus VIAL] 5 unit SUB-Q BID 07/13/20 07/13/20 Unknown History Tamsulosin [Flomax] 0.4 mg PO QDAY 07/13/20 07/13/20 Unknown History Venlafaxine [Effexor 25mg tab] 25 mg PO BID 07/13/20 07/13/20 Unknown History allopurinoL [Zyloprim] 100 mg PO QDAY 07/13/20 07/13/20 Unknown History cloNIDine [Catapres] 0.3 mg PO BID 07/13/20 07/13/20 Unknown History Active Meds: Active Medications Acetaminophen (Tylenol) 650 mg PO Q4H PRN PRN Reason: Pain MILD(1-3)/Fever >100.5/MATUTE Allopurinol (Zyloprim) 100 mg PO QDAY [facility] Last Admin: 07/14/20 10:16 Dose: 100 mg Documented by: Aspirin (Halfprin Ec) 81 mg PO DAILY [facility] Last Admin: 07/14/20 10:16 Dose: 81 mg Documented by: Atorvastatin Calcium (Atorvastatin) 10 mg PO DAILY [facility] Last Admin: 07/14/20 10:16 Dose: 10 mg Documented by: Clonidine HCl (Catapres) 0.3 mg PO Q8HR [facility] Last Admin: 07/14/20 10:15 Dose: 0.3 mg Documented by: Famotidine (Pepcid) 10 mg PO BID [facility] Last Admin: 07/14/20 10:16 Dose: 10 mg Documented by: Gabapentin (Gabapentin) 200 mg PO Q2D [facility] Last Admin: 07/14/20 00:03 Dose: 200 mg Documented by: Heparin Sodium (Porcine) (Heparin) 5,000 unit SUB-Q Q12HR [facility] Last Admin: 07/14/20 10:16 Dose: 5,000 unit Documented by: Hydralazine HCl (Apresoline) 50 mg PO Q8HR [facility] Last Admin: 07/14/20 06:06 Dose: 50 mg Documented by: Hydromorphone HCl (Dilaudid) 0.5 mg IV Q3H PRN PRN Reason: Pain , Severe (7-10) Last Admin: 07/14/20 03:09 Dose: 0.5 mg Documented by: Nicardipine HCl 50 mg/ Sodium (Chloride) 250 mls @ 25 mls/hr IV TITR [facility]; Protocol Last Titration: 07/14/20 11:07 Dose: 5 mg/hr, 25 mls/hr Documented by: Sodium Chloride (Nacl 0.9%) 100 mls @ 999 mls/hr IV RADHA PRN PRN Reason: Hypotension Insulin Glargine (Lantus) 5 units SUB-Q BID [facility] Last Admin: 07/14/20 10:16 Dose: 5 units Documented by: Insulin Human Lispro (Humalog) 0 unit SUB-Q ACHS [facility]; Protocol Last Admin: 07/14/20 08:23 Dose: 2 unit Documented by: Ondansetron HCl (Zofran) 4 mg IV Q8H PRN PRN Reason: Nausea And Vomiting Sodium Chloride (Sodium Chloride Flush Syringe 10 Ml) 10 ml IV BID [facility] Last Admin: 07/14/20 10:17 Dose: 10 ml Documented by: Sodium Chloride (Sodium Chloride Flush Syringe 10 Ml) 10 ml IV PRN PRN PRN Reason: LINE FLUSH Tamsulosin HCl (Flomax) 0.4 mg PO QDAY [facility] Last Admin: 07/14/20 10:16 Dose: 0.4 mg Documented by: Valsartan (Diovan) 160 mg PO Q12H [facility] Last Admin: 07/14/20 00:03 Dose: 160 mg Documented by: Venlafaxine HCl (Effexor) 25 mg PO BID [facility] Last Admin: 07/14/20 10:17 Dose: 25 mg Documented by: Exam - Constitutional Vitals: Temp Pulse Resp BP Pulse Ox 99.0 F 78 10 L 148/61 99 07/14/20 08:00 07/14/20 11:00 07/14/20 11:00 07/14/20 11:00 07/14/20 11:00 General appearance: Present: no acute distress, well-nourished Results - Labs CBC & Chem 7: 07/14/20 05:48 07/14/20 05:48 Labs: Abnormal lab results 07/13/20 07/13/20 07/13/20 Range/Units 16:13 16:13 16:13 WBC 3.9 L (4.5-11.0) K/mm3 MCV 97 H (84-94) fl RDW 17.3 H (13.2-15.2) % Plt Count 92 L (140-440) K/mm3 [place] % (Auto) 8.6 H (0.0-7.3) % Eos % (Auto) (0.0-4.3) % Lymph # (Auto) 1.0 L (1.2-5.4) K/mm3 BUN 45 H (9-20) mg/dL Creatinine 6.0 H (0.8-1.3) mg/dL Glucose 128 H (75-100) mg/dL POC Glucose (70-105) mg/dL Hemoglobin A1c (4-6) % Troponin T 0.158 H* (0.00-0.029) ng/mL NT-Pro-B Natriuret Pep (0-900) pg/mL Total Protein (6.3-8.2) g/dL Albumin 3.4 L (3.9-5) g/dL Salicylates < 0.3 L (2.8-20.0) mg/dL Acetaminophen (10.0-30.0) ug/mL 07/13/20 07/13/20 07/13/20 Range/Units 16:13 18:22 23:00 WBC (4.5-11.0) K/mm3 MCV (84-94) fl RDW (13.2-15.2) % Plt Count (140-440) K/mm3 [place] % (Auto) (0.0-7.3) % Eos % (Auto) (0.0-4.3) % Lymph # (Auto) (1.2-5.4) K/mm3 BUN (9-20) mg/dL Creatinine (0.8-1.3) mg/dL Glucose (75-100) mg/dL POC Glucose (70-105) mg/dL Hemoglobin A1c 6.2 H (4-6) % Troponin T (0.00-0.029) ng/mL NT-Pro-B Natriuret Pep 47310 H (0-900) pg/mL Total Protein (6.3-8.2) g/dL Albumin (3.9-5) g/dL Salicylates (2.8-20.0) mg/dL Acetaminophen 5.0 L (10.0-30.0) ug/mL 07/14/20 07/14/20 07/14/20 Range/Units 00:07 05:48 05:48 WBC (4.5-11.0) K/mm3 MCV 97 H (84-94) fl RDW 17.6 H (13.2-15.2) % Plt Count 98 L (140-440) K/mm3 [place] % (Auto) 9.9 H (0.0-7.3) % Eos % (Auto) 4.9 H (0.0-4.3) % Lymph # (Auto) (1.2-5.4) K/mm3 BUN 51 H (9-20) mg/dL Creatinine 6.9 H (0.8-1.3) mg/dL Glucose 168 H (75-100) mg/dL POC Glucose 126 H (70-105) mg/dL Hemoglobin A1c (4-6) % Troponin T (0.00-0.029) ng/mL NT-Pro-B Natriuret Pep (0-900) pg/mL Total Protein 6.0 L (6.3-8.2) g/dL Albumin 3.4 L (3.9-5) g/dL Salicylates (2.8-20.0) mg/dL Acetaminophen (10.0-30.0) ug/mL 07/14/20 Range/Units 08:08 WBC (4.5-11.0) K/mm3 MCV (84-94) fl RDW (13.2-15.2) % Plt Count (140-440) K/mm3 [place] % (Auto) (0.0-7.3) % Eos % (Auto) (0.0-4.3) % Lymph # (Auto) (1.2-5.4) K/mm3 BUN (9-20) mg/dL Creatinine (0.8-1.3) mg/dL Glucose (75-100) mg/dL POC Glucose 174 H (70-105) mg/dL Hemoglobin A1c (4-6) % Troponin T (0.00-0.029) ng/mL NT-Pro-B Natriuret Pep (0-900) pg/mL Total Protein (6.3-8.2) g/dL Albumin (3.9-5) g/dL Salicylates (2.8-20.0) mg/dL Acetaminophen (10.0-30.0) ug/mL - Imaging and Cardiology Chest x-ray: image reviewed (clear with some calcification seen in the aortic arch) Assessment and Plan 75 y/o male with prolonged hospital stay at outside hospital, admitted with hypertensive Emergency and Altered mental status post HD, improving. 1. CV-Discussed on rounds today. Will likely increase clonidine to TID dosing unless renal has any other suggestions. Continue to wean Cardene drip as tolerated 2. Renal-HD yesterday per report, unsure if it was completed. Nephro to see later today. 3. Continue all other home medications 4. may need to consider obtaining records from [facility] [place] if patient stays longer than expected to control his BP 5. Will transfer out of unit once of cardene and BP is stable on just oral medications CCT 31 minutes.
--- NOTE | 2020-07-14 12:44 | Consultation ---
History of Present Illness - Reason for Consult Consult date: 07/14/20 end stage renal disease Requesting physician: ANGELICA ROOT - History of Present Illness 75-year-old male who was recently hospitalized at [facility] for about 5 weeks. He has a longstanding history of diabetes mellitus, hypertension benign prostatic hyperplasia, gout, peripheral neuropathy, liver cancer and chronic kidney disease. While in the hospital patient developed acute kidney injury and was started on dialysis. He was discharged to reliable rehabilitation from where he goes to dialysis clinic in [place]. I called the rehab but I was on hold for several minutes and was unable to speak to the nurse to find out which clinic he is going to. Patient was brought to the hospital on account of elevated blood pressure with lethargy and decreased responsiveness on the way to dialysis. It is not clear if he actually got to the dialysis clinic or if he was on the way and then sent to the hospital. Blood pressure was as high as 240/130 in the emergency room and patient was found lethargic and so was admitted for further management. I called patient's and she said patient was not doing well due to noncompliance with his medications and his blood sugar was uncontrolled. He was falling at home and incontinent of urine and so he was sent to [facility] for evaluation. Past History Past Medical History: diabetes, ESRD, hypertension, hyperlipidemia, other (BPH, gout, peripheral neuropathy, liver cancer) Social history: no significant social history Family history: no significant family history Medications and Allergies Allergies Allergy/AdvReac Type Severity Reaction Status Date / Time acetaminophen [From Percocet] Allergy Unknown Verified 07/13/20 14:52 oxycodone [From Percocet] Allergy Unknown Verified 07/13/20 14:52 lisinopril AdvReac Unknown Verified 07/13/20 14:53 Home Medications Medication Instructions Recorded Confirmed Last Taken Type Aspirin [Adult Aspirin] 81 mg PO DAILY 07/13/20 07/13/20 Unknown History Atorvastatin Calcium [Lipitor] 10 mg PO DAILY 07/13/20 07/13/20 Unknown History Gabapentin [Neurontin] 200 mg PO Q2D 07/13/20 07/13/20 Unknown History Insulin Glargine [Lantus VIAL] 5 unit SUB-Q BID 07/13/20 07/13/20 Unknown History Tamsulosin [Flomax] 0.4 mg PO QDAY 07/13/20 07/13/20 Unknown History Venlafaxine [Effexor 25mg tab] 25 mg PO BID 07/13/20 07/13/20 Unknown History allopurinoL [Zyloprim] 100 mg PO QDAY 07/13/20 07/13/20 Unknown History cloNIDine [Catapres] 0.3 mg PO BID 07/13/20 07/13/20 Unknown History Active Meds: Active Medications Acetaminophen (Tylenol) 650 mg PO Q4H PRN PRN Reason: Pain MILD(1-3)/Fever >100.5/MATUTE Allopurinol (Zyloprim) 100 mg PO QDAY [facility] Last Admin: 07/14/20 10:16 Dose: 100 mg Documented by: Aspirin (Halfprin Ec) 81 mg PO DAILY [facility] Last Admin: 07/14/20 10:16 Dose: 81 mg Documented by: Atorvastatin Calcium (Atorvastatin) 10 mg PO DAILY [facility] Last Admin: 07/14/20 10:16 Dose: 10 mg Documented by: Clonidine HCl (Catapres) 0.3 mg PO Q8HR [facility] Last Admin: 07/14/20 10:15 Dose: 0.3 mg Documented by: Famotidine (Pepcid) 10 mg PO BID [facility] Last Admin: 07/14/20 10:16 Dose: 10 mg Documented by: Gabapentin (Gabapentin) 200 mg PO Q2D [facility] Last Admin: 07/14/20 00:03 Dose: 200 mg Documented by: Heparin Sodium (Porcine) (Heparin) 5,000 unit SUB-Q Q12HR [facility] Last Admin: 07/14/20 10:16 Dose: 5,000 unit Documented by: Hydralazine HCl (Apresoline) 50 mg PO Q8HR [facility] Last Admin: 07/14/20 06:06 Dose: 50 mg Documented by: Hydromorphone HCl (Dilaudid) 0.5 mg IV Q3H PRN PRN Reason: Pain , Severe (7-10) Last Admin: 07/14/20 03:09 Dose: 0.5 mg Documented by: Nicardipine HCl 50 mg/ Sodium (Chloride) 250 mls @ 25 mls/hr IV TITR [facility]; Protocol Last Titration: 07/14/20 11:54 Dose: 2.5 mg/hr, 12.5 mls/hr Documented by: Sodium Chloride (Nacl 0.9%) 100 mls @ 999 mls/hr IV RADHA PRN PRN Reason: Hypotension Insulin Glargine (Lantus) 5 units SUB-Q BID [facility] Last Admin: 07/14/20 10:16 Dose: 5 units Documented by: Insulin Human Lispro (Humalog) 0 unit SUB-Q ACHS [facility]; Protocol Last Admin: 07/14/20 11:54 Dose: Not Given Documented by: Ondansetron HCl (Zofran) 4 mg IV Q8H PRN PRN Reason: Nausea And Vomiting Sodium Chloride (Sodium Chloride Flush Syringe 10 Ml) 10 ml IV BID [facility] Last Admin: 07/14/20 10:17 Dose: 10 ml Documented by: Sodium Chloride (Sodium Chloride Flush Syringe 10 Ml) 10 ml IV PRN PRN PRN Reason: LINE FLUSH Tamsulosin HCl (Flomax) 0.4 mg PO QDAY [facility] Last Admin: 07/14/20 10:16 Dose: 0.4 mg Documented by: Valsartan (Diovan) 160 mg PO Q12H [facility] Last Admin: 07/14/20 11:54 Dose: 160 mg Documented by: Venlafaxine HCl (Effexor) 25 mg PO BID [facility] Last Admin: 07/14/20 10:17 Dose: 25 mg Documented by: Review of Systems ROS unobtainable: due to mental status Exam - Vital Signs Vital signs: Vital Signs Temp Pulse Resp BP Pulse Ox 97.9 F 81 17 225/129 97 07/13/20 14:27 07/13/20 14:27 07/13/20 14:27 07/13/20 14:27 07/13/20 14:27 - Physical Exam Narrative exam: Elderly -Hungarian male lying in the intensive care unit in no acute distress HEENT: NCAT, pink oral mucous membrane Neck: Supple, no venous distention CVS: S1S2 RRR loud S2 with no murmur, rub or gallop Chest: Clear to auscultation Abdomen: Protuberant, soft, nontender, no organomegaly, bowel sounds are present Extremities: + edema, left upper extremity AV graft with good thrill and bruit Skin warm and dry no rash Genitourinary deferred Neuro: Awake, alert no focal deficits Results - Lab Results 07/14/20 05:48 07/14/20 05:48 Most recent lab results Calcium 8.9 mg/dL (8.4-10.2) 07/14/20 05:48 Assessment and Plan - Patient Problems (1) Hypertensive encephalopathy Current Visit: Yes Status: Acute Plan to address problem: Patient was on Cardene drip. Start oral antihypertensive medications. Fluid removal on dialysis and then follow-up blood pressure. (2) Type 2 diabetes mellitus with diabetic chronic kidney disease Current Visit: Yes Status: Acute Plan to address problem: Blood sugar control by primary attending (3) End stage renal disease on dialysis Current Visit: Yes Status: Chronic Plan to address problem: Hemodialysis today for fluid removal and solute clearance. Reevaluate (4) Peripheral neuropathy Current Visit: Yes Status: Chronic Qualifiers: Peripheral neuropathy type: polyneuropathy, unspecified Qualified Code(s): G62.9 - Polyneuropathy, unspecified Plan to address problem: Avoid gabapentin or Lyrica for now. Follow-up (5) Gout Current Visit: Yes Status: Inactive Plan to address problem: Continue treatment
[2020-07-14 14:42] LABS: Hepatitis B Surface Antigen Non-Reactive (Negative); Hepatitis C Virus Antibody Non-Reactive (NonReactive)
[2020-07-15] MEDS: cloNIDine 0.1 MG TAB PO SCH ×3 (06:27→22:16)
[2020-07-15] MEDS: hydrALAZINE 25 MG TAB PO SCH ×3 (06:28→22:19)
[2020-07-15] MEDS: INSULIN LISPRO 100 UNIT/ML VIAL 3 mL SUB-Q SCH ×4 (08:29→23:34)
--- NOTE | 2020-07-15 08:55 | Progress Note ---
Assessment and Plan 75 y/o male with prolonged hospital stay at outside hospital, admitted with hypertensive Emergency and Altered mental status post HD, improving. 1. No acute pulmonary issues. Will sign off. Subjective Date of service: 07/15/20 Interval history: Successfully weaned off cardene drip and transitioned to floor. Objective - Constitutional Vitals: Vital Signs - 12hr 07/15/20 07/15/20 07/15/20 00:00 00:37 00:42 Temperature 97.4 F L Pulse Rate 78 79 Pulse Rate [ 79 Right Radial] Respiratory 20 20 Rate Blood Pressure 109/74 [Right] O2 Sat by Pulse 100 100 Oximetry 07/15/20 07/15/20 06:24 06:26 Temperature 97.2 F L Pulse Rate 69 Pulse Rate [ Right Radial] Respiratory Rate Blood Pressure 162/62 [Right] O2 Sat by Pulse 100 100 Oximetry - Labs CBC & Chem 7: 07/14/20 05:48 07/14/20 05:48 Labs: Abnormal lab results 07/14/20 07/14/20 07/15/20 Range/Units 12:01 16:31 07:54 POC Glucose 143 H 149 H 121 H (70-105) mg/dL Medications & Allergies - Medications Allergies/Adverse Reactions: Allergies acetaminophen [From Percocet] Allergy (Verified 07/13/20 14:52) Unknown oxycodone [From Percocet] Allergy (Verified 07/13/20 14:52) Unknown lisinopril Adverse Reaction (Verified 07/13/20 14:53) Unknown Home Medications: Home Medications Medication Instructions Recorded Confirmed Last Taken Type Aspirin [Adult Aspirin] 81 mg PO DAILY 07/13/20 07/13/20 Unknown History Atorvastatin Calcium [Lipitor] 10 mg PO DAILY 07/13/20 07/13/20 Unknown History Gabapentin [Neurontin] 200 mg PO Q2D 07/13/20 07/13/20 Unknown History Insulin Glargine [Lantus VIAL] 5 unit SUB-Q BID 07/13/20 07/13/20 Unknown History Tamsulosin [Flomax] 0.4 mg PO QDAY 07/13/20 07/13/20 Unknown History Venlafaxine [Effexor 25mg tab] 25 mg PO BID 07/13/20 07/13/20 Unknown History allopurinoL [Zyloprim] 100 mg PO QDAY 07/13/20 07/13/20 Unknown History cloNIDine [Catapres] 0.3 mg PO BID 07/13/20 07/13/20 Unknown History Active Medications: Generic Name Dose Route Start Last Admin Trade Name Freq PRN Reason Stop Dose Admin Acetaminophen 650 mg 07/13/20 23:08 Tylenol PO Q4H PRN Pain MILD(1-3)/Fever >100.5/MATUTE Allopurinol 100 mg 07/14/20 10:00 07/14/20 10:16 Zyloprim PO 100 mg QDAY TAMAR Administration Aspirin 81 mg 07/14/20 10:00 07/14/20 10:16 Halfprin Ec PO 81 mg DAILY TAMAR Administration Atorvastatin Calcium 10 mg 07/14/20 10:00 07/14/20 10:16 Atorvastatin PO 10 mg DAILY TAMAR Administration Clonidine HCl 0.3 mg 07/14/20 11:00 07/15/20 06:27 Catapres PO 0.3 mg Q8HR TAMAR Administration Famotidine 10 mg 07/14/20 10:00 07/14/20 22:04 Pepcid PO 10 mg BID TAMAR Administration Heparin Sodium (Porcine) 5,000 unit 07/13/20 23:15 07/14/20 22:04 Heparin SUB-Q 5,000 unit Q12HR TAMAR Administration Hydralazine HCl 50 mg 07/13/20 23:45 07/15/20 06:28 Apresoline PO 50 mg Q8HR TAMRA Administration Sodium Chloride 100 mls @ 999 mls/hr 07/14/20 10:36 Nacl 0.9% IV RADHA PRN Hypotension Insulin Glargine 5 units 07/13/20 23:45 07/14/20 22:04 Lantus SUB-Q 5 units BID TAMAR Administration Insulin Human Lispro 0 unit 07/14/20 07:30 07/14/20 22:05 Humalog SUB-Q Not Given ACHS [facility] Protocol Ondansetron HCl 4 mg 07/13/20 23:08 Zofran IV Q8H PRN Nausea And Vomiting Sodium Chloride 10 ml 07/14/20 10:00 07/14/20 22:05 Sodium Chloride Flush Syringe 10 Ml IV 10 ml BID TAMAR Administration Sodium Chloride 10 ml 07/13/20 23:08 Sodium Chloride Flush Syringe 10 Ml IV PRN PRN LINE FLUSH Tamsulosin HCl 0.4 mg 07/14/20 10:00 07/14/20 10:16 Flomax PO 0.4 mg QDAY TAAMR Administration Valsartan 160 mg 07/13/20 23:45 07/14/20 11:54 Diovan PO 160 mg Q12H TAMAR Administration Venlafaxine HCl 25 mg 07/13/20 23:45 07/14/20 21:59 Effexor PO 25 mg BID TAMAR Administration HEART Score - HEART Score Age: > 65 Risk factors: > 3 risk factors or hx of atherosclerotic disease Troponin: Troponin T 0.158 ng/mL (0.00-0.029) H* 07/13/20 16:13 Troponin: 1-3x normal limit - Critical Actions Critical Actions: 4-6 pts:12-16.6% risk of adverse cardiac event. Should be admitted
--- NOTE | 2020-07-15 10:17 | Progress Note ---
Assessment and Plan - Patient Problems (1) Hypertensive encephalopathy Current Visit: Yes Status: Acute Plan to address problem: Patient off of Cardene drip. On oral antihypertensive medications. Blood pressure improved following fluid removal on dialysis. Follow-up blood pressure on current medications (2) Type 2 diabetes mellitus with diabetic chronic kidney disease Current Visit: Yes Status: Acute Plan to address problem: Blood sugar control by primary attending (3) End stage renal disease on dialysis Current Visit: Yes Status: Chronic Plan to address problem: Hemodialysis tomorrow (4) Peripheral neuropathy Current Visit: Yes Status: Chronic Qualifiers: Peripheral neuropathy type: polyneuropathy, unspecified Qualified Code(s): G62.9 - Polyneuropathy, unspecified Plan to address problem: Avoid gabapentin or Lyrica for now. Follow-up (5) Gout Current Visit: Yes Status: Inactive Plan to address problem: Continue treatment Subjective Date of service: 07/15/20 Principal diagnosis: End-stage renal disease on hemodialysis Interval history: Patient seen lying in bed. He is more awake today. He is still a bit confused. Denies any chest pain or shortness of breath Objective - Exam Narrative Exam: Elderly -[place] male lying in no acute distress HEENT: NCAT, Neck: Supple, no venous distention CVS: S1S2 RRR loud S2 with no murmur, rub or gallop Chest: Clear to auscultation Abdomen: Protuberant, soft, nontender, no organomegaly, bowel sounds are present Extremities: + edema, left upper extremity AV graft with good thrill and bruit Skin warm and dry no rash Genitourinary deferred Neuro: Awake, alert, disoriented to place and time no focal deficits - Vital Signs Vital signs: Vital Signs - 12hr 07/15/20 07/15/20 07/15/20 00:00 00:37 00:42 Temperature 97.4 F L Pulse Rate 78 79 Pulse Rate [ 79 Right Radial] Respiratory 20 20 Rate Blood Pressure 109/74 [Right] O2 Sat by Pulse 100 100 Oximetry 07/15/20 07/15/20 06:24 06:26 Temperature 97.2 F L Pulse Rate 69 Pulse Rate [ Right Radial] Respiratory Rate Blood Pressure 162/62 [Right] O2 Sat by Pulse 100 100 Oximetry - Lab 07/14/20 05:48 07/14/20 05:48 Most recent lab results Calcium 8.9 mg/dL (8.4-10.2) 07/14/20 05:48 Medications & Allergies - Medications Allergies/Adverse Reactions: Allergies acetaminophen [From Percocet] Allergy (Verified 07/13/20 14:52) Unknown oxycodone [From Percocet] Allergy (Verified 07/13/20 14:52) Unknown lisinopril Adverse Reaction (Verified 07/13/20 14:53) Unknown Home Medications: Home Medications Medication Instructions Recorded Confirmed Last Taken Type Aspirin [Adult Aspirin] 81 mg PO DAILY 07/13/20 07/13/20 Unknown History Atorvastatin Calcium [Lipitor] 10 mg PO DAILY 07/13/20 07/13/20 Unknown History Gabapentin [Neurontin] 200 mg PO Q2D 07/13/20 07/13/20 Unknown History Insulin Glargine [Lantus VIAL] 5 unit SUB-Q BID 07/13/20 07/13/20 Unknown History Tamsulosin [Flomax] 0.4 mg PO QDAY 07/13/20 07/13/20 Unknown History Venlafaxine [Effexor 25mg tab] 25 mg PO BID 07/13/20 07/13/20 Unknown History allopurinoL [Zyloprim] 100 mg PO QDAY 07/13/20 07/13/20 Unknown History cloNIDine [Catapres] 0.3 mg PO BID 07/13/20 07/13/20 Unknown History Active Medications: Generic Name Dose Route Start Last Admin Trade Name Freq PRN Reason Stop Dose Admin Acetaminophen 650 mg 07/13/20 23:08 Tylenol PO Q4H PRN Pain MILD(1-3)/Fever >100.5/MATUTE Allopurinol 100 mg 07/14/20 10:00 07/14/20 10:16 Zyloprim PO 100 mg QDAY TAMAR Administration Aspirin 81 mg 07/14/20 10:00 07/14/20 10:16 Halfprin Ec PO 81 mg DAILY TAMAR Administration Atorvastatin Calcium 10 mg 07/14/20 10:00 07/14/20 10:16 Atorvastatin PO 10 mg DAILY TAMAR Administration Clonidine HCl 0.3 mg 07/14/20 11:00 07/15/20 06:27 Catapres PO 0.3 mg Q8HR TAMAR Administration Famotidine 10 mg 07/14/20 10:00 07/14/20 22:04 Pepcid PO 10 mg BID TAMAR Administration Heparin Sodium (Porcine) 5,000 unit 07/13/20 23:15 07/14/20 22:04 Heparin SUB-Q 5,000 unit Q12HR TAMAR Administration Hydralazine HCl 50 mg 07/13/20 23:45 07/15/20 06:28 Apresoline PO 50 mg Q8HR TAMAR Administration Sodium Chloride 100 mls @ 999 mls/hr 07/14/20 10:36 Nacl 0.9% IV RADHA PRN Hypotension Insulin Glargine 5 units 07/13/20 23:45 07/14/20 22:04 Lantus SUB-Q 5 units BID TAMAR Administration Insulin Human Lispro 0 unit 07/14/20 07:30 07/14/20 22:05 Humalog SUB-Q Not Given ACHS [facility] Protocol Ondansetron HCl 4 mg 07/13/20 23:08 Zofran IV Q8H PRN Nausea And Vomiting Sodium Chloride 10 ml 07/14/20 10:00 07/14/20 22:05 Sodium Chloride Flush Syringe 10 Ml IV 10 ml BID TAMAR Administration Sodium Chloride 10 ml 07/13/20 23:08 Sodium Chloride Flush Syringe 10 Ml IV PRN PRN LINE FLUSH Tamsulosin HCl 0.4 mg 07/14/20 10:00 07/14/20 10:16 Flomax PO 0.4 mg QDAY TAMAR Administration Valsartan 160 mg 07/13/20 23:45 07/14/20 11:54 Diovan PO 160 mg Q12H TAMAR Administration Venlafaxine HCl 25 mg 07/13/20 23:45 07/14/20 21:59 Effexor PO 25 mg BID TAMAR Administration
[2020-07-15] MEDS: FAMOTIDINE 10 MG TAB PO SCH ×2 (11:04→22:20)
[2020-07-15] MEDS: VALSARTAN 160MG TAB PO SCH ×4 (11:09→23:36)
[2020-07-15] MEDS: TAMSULOSIN 0.4 MG CAP PO SCH (11:12)
[2020-07-15] MEDS: allopurinoL 100 MG TAB PO SCH (11:14)
[2020-07-15] MEDS: HEPARIN 5,000 UNIT/1 ML VIAL SUB-Q SCH ×2 (11:21→22:16)
[2020-07-15] MEDS: VENLAFAXINE 25 MG TAB PO SCH ×2 (11:26→22:21)
[2020-07-15] MEDS: INSULIN GLARGINE 100 UNITS/ML SUB-Q SCH ×2 (11:26→23:30)
--- NOTE | 2020-07-15 11:54 | Progress Note ---
Assessment and Plan Assessment and plan: --Metabolic encephalopathy; Current Visit: Yes Status: Acute Plan to address problem: patient is confused multifactorial Underlying disease process, advanced age Possible dementia, supportive care -- Hypertensive encephalopathy Current Visit: Yes Status: Acute Plan to address problem: Due to uncontrolled blood pressures -- End stage renal disease on dialysis Current Visit: Yes Status: Chronic Plan to address problem: Patient on dialysis per schedule Nephrology following -- Insulin dependent diabetes mellitus Current Visit: Yes Status: Chronic Plan to address problem: Check hemoglobin A1c and continue home insulin Coverage for now with moderate dose sliding scale protocol --Peripheral neuropathy Current Visit: Yes Status: Chronic Plan to address problem: Patient initiated on gabapentin -- BPH (benign prostatic hyperplasia) Current Visit: Yes Status: Chronic Plan to address problem: Continue Flomax -- Gout Current Visit: Yes Status: Inactive Plan to address problem: Continue allopurinol 100 mg once a day for prevention -- DVT prophylaxis Current Visit: Yes Status: Acute Plan to address problem: On heparin and GI prophylaxis Patient feels better possible discharge home tomorrow if stable History Interval history: I have seen and examined the patient at the bedside this morning Patient is slightly confused try to pull everything Alert and awake, not in acute distress Vital signs noted Patient has no new complaints Hospitalist Physical - Constitutional Vitals: Temp Pulse Resp BP Pulse Ox 98.0 F 63 19 138/58 97 07/15/20 08:16 07/15/20 08:16 07/15/20 08:16 07/15/20 08:16 07/15/20 08:16 General appearance: Present: no acute distress, well-nourished - EENT Eyes: Present: PERRL, EOM intact - Neck Neck: Present: supple, normal ROM - Respiratory Respiratory effort: normal Respiratory: bilateral: diminished, negative: rales, rhonchi, wheezing - Cardiovascular Rhythm: regular Heart Sounds: Present: S1 & S2 - Extremities Extremities: no ischemia, No edema - Abdominal General gastrointestinal: soft, non-tender, non-distended, normal bowel sounds - Integumentary Integumentary: Present: clear, warm - Psychiatric Psychiatric: appropriate mood/affect, cooperative - Neurologic Neurologic: moves all extremities HEART Score - HEART Score Age: > 65 Risk factors: > 3 risk factors or hx of atherosclerotic disease Troponin: Troponin T 0.158 ng/mL (0.00-0.029) H* 07/13/20 16:13 Troponin: 1-3x normal limit - Critical Actions Critical Actions: 4-6 pts:12-16.6% risk of adverse cardiac event. Should be admitted Results - Labs CBC & Chem 7: 07/14/20 05:48 07/14/20 05:48 Labs: Laboratory Last Values WBC 4.8 K/mm3 (4.5-11.0) 07/14/20 05:48 RBC 3.77 M/mm3 (3.65-5.03) 07/14/20 05:48 Hgb 12.0 gm/dl (11.8-15.2) 07/14/20 05:48 Hct 36.5 % (35.5-45.6) 07/14/20 05:48 MCV 97 fl (84-94) H 07/14/20 05:48 MCH 32 pg (28-32) 07/14/20 05:48 MCHC 33 % (32-34) 07/14/20 05:48 RDW 17.6 % (13.2-15.2) H 07/14/20 05:48 Plt Count 98 K/mm3 (140-440) L 07/14/20 05:48 Lymph % (Auto) 27.1 % (13.4-35.0) 07/14/20 05:48 [place] % (Auto) 9.9 % (0.0-7.3) H 07/14/20 05:48 Eos % (Auto) 4.9 % (0.0-4.3) H 07/14/20 05:48 Baso % (Auto) 0.4 % (0.0-1.8) 07/14/20 05:48 Lymph # (Auto) 1.3 K/mm3 (1.2-5.4) 07/14/20 05:48 [place] # (Auto) 0.5 K/mm3 (0.0-0.8) 07/14/20 05:48 Eos # (Auto) 0.2 K/mm3 (0.0-0.4) 07/14/20 05:48 Baso # (Auto) 0.0 K/mm3 (0.0-0.1) 07/14/20 05:48 Seg Neutrophils % 57.7 % (40.0-70.0) 07/14/20 05:48 Seg Neutrophils # 2.8 K/mm3 (1.8-7.7) 07/14/20 05:48 PT 12.2 Sec. (12.2-14.9) 07/13/20 16:13 INR 0.89 (0.87-1.13) 07/13/20 16:13 APTT 26.7 Sec. (24.2-36.6) 07/13/20 16:13 Sodium 144 mmol/L (137-145) 07/14/20 05:48 Potassium 4.6 mmol/L (3.6-5.0) 07/14/20 05:48 Chloride 98.9 mmol/L (98-107) 07/14/20 05:48 Carbon Dioxide 22 mmol/L (22-30) 07/14/20 05:48 Anion Gap 28 mmol/L 07/14/20 05:48 BUN 51 mg/dL (9-20) H 07/14/20 05:48 Creatinine 6.9 mg/dL (0.8-1.3) H 07/14/20 05:48 Estimated GFR 8 ml/min 07/14/20 05:48 BUN/Creatinine Ratio 7 % 07/14/20 05:48 Glucose 168 mg/dL (75-100) H 07/14/20 05:48 POC Glucose 121 mg/dL (70-105) H 07/15/20 07:54 Hemoglobin A1c 6.2 % (4-6) H 07/13/20 23:00 Lactic Acid 1.80 mmol/L (0.7-2.0) 07/13/20 16:13 Calcium 8.9 mg/dL (8.4-10.2) 07/14/20 05:48 Total Bilirubin 0.70 mg/dL (0.1-1.2) 07/14/20 05:48 AST 23 units/L (5-40) 07/14/20 05:48 ALT 13 units/L (7-56) 07/14/20 05:48 Alkaline Phosphatase 75 units/L (35-129) 07/14/20 05:48 Ammonia 28.0 umol/L (25-60) 07/13/20 16:13 Troponin T 0.158 ng/mL (0.00-0.029) H* 07/13/20 16:13 NT-Pro-B Natriuret Pep 99558 pg/mL (0-900) H 07/13/20 18:22 Total Protein 6.0 g/dL (6.3-8.2) L 07/14/20 05:48 Albumin 3.4 g/dL (3.9-5) L 07/14/20 05:48 Albumin/Globulin Ratio 1.3 % 07/14/20 05:48 Triglycerides 81 mg/dL (2-149) 07/13/20 16:13 Cholesterol 146 mg/dL (50-199) 07/13/20 16:13 LDL Cholesterol Direct 88 mg/dL (50-130) 07/13/20 16:13 HDL Cholesterol 47 mg/dL (40-59) 07/13/20 16:13 Cholesterol/HDL Ratio 3.10 % 07/13/20 16:13 Salicylates < 0.3 mg/dL (2.8-20.0) L 07/13/20 16:13 Acetaminophen 5.0 ug/mL (10.0-30.0) L 07/13/20 16:13 Plasma/Serum Alcohol < 0.01 % (0-0.07) 07/13/20 16:13 Hepatitis A IgM Ab Non-reactive (NonReactive) 07/14/20 12:58 Hep Bs Antigen Non-reactive (Negative) 07/14/20 12:58 Hep B Core IgM Ab Non-reactive (NonReactive) 07/14/20 12:58 Hepatitis C Antibody Non-reactive (NonReactive) 07/14/20 12:58 Microbiology: Microbiology 07/13/20 16:17 Peripheral/Venous Blood Culture - Preliminary NO GROWTH AFTER 24 HOURS 07/13/20 16:13 Peripheral/Venous Blood Culture - Preliminary NO GROWTH AFTER 24 HOURS [place]/IV: IV Catheter Type [Right Upper INT / Saline Lock arm] IV Catheter Type [Right INT / Saline Lock Forearm] IV Catheter Type [Right INT / Saline Lock Antecubital] Active Medications - Current Medications Current Medications: Generic Name Dose Route Start Last Admin Trade Name Freq PRN Reason Stop Dose Admin Acetaminophen 650 mg 07/13/20 23:08 Tylenol PO Q4H PRN Pain MILD(1-3)/Fever >100.5/MATUTE Allopurinol 100 mg 07/14/20 10:00 07/14/20 10:16 Zyloprim PO 100 mg QDAY TAMAR Administration Aspirin 81 mg 07/14/20 10:00 07/14/20 10:16 Halfprin Ec PO 81 mg DAILY TAMAR Administration Atorvastatin Calcium 10 mg 07/14/20 10:00 07/14/20 10:16 Atorvastatin PO 10 mg DAILY TAMAR Administration Clonidine HCl 0.3 mg 07/14/20 11:00 07/15/20 06:27 Catapres PO 0.3 mg Q8HR TAMAR Administration Famotidine 10 mg 07/14/20 10:00 07/14/20 22:04 Pepcid PO 10 mg BID TAMAR Administration Heparin Sodium (Porcine) 5,000 unit 07/13/20 23:15 07/14/20 22:04 Heparin SUB-Q 5,000 unit Q12HR TAMAR Administration Hydralazine HCl 50 mg 07/13/20 23:45 07/15/20 06:28 Apresoline PO 50 mg Q8HR TAMAR Administration Sodium Chloride 100 mls @ 999 mls/hr 07/14/20 10:36 Nacl 0.9% IV RADHA PRN Hypotension Insulin Glargine 5 units 07/13/20 23:45 07/14/20 22:04 Lantus SUB-Q 5 units BID [facility] Administration Insulin Human Lispro 0 unit 07/14/20 07:30 07/14/20 22:05 Humalog SUB-Q Not Given ACHS [facility] Protocol Ondansetron HCl 4 mg 07/13/20 23:08 Zofran IV Q8H PRN Nausea And Vomiting Sodium Chloride 10 ml 07/14/20 10:00 07/14/20 22:05 Sodium Chloride Flush Syringe 10 Ml IV 10 ml BID TAMAR Administration Sodium Chloride 10 ml 07/13/20 23:08 Sodium Chloride Flush Syringe 10 Ml IV PRN PRN LINE FLUSH Tamsulosin HCl 0.4 mg 07/14/20 10:00 07/14/20 10:16 Flomax PO 0.4 mg QDAY TAMAR Administration Valsartan 160 mg 07/13/20 23:45 07/14/20 11:54 Diovan PO 160 mg Q12H TAMAR Administration Venlafaxine HCl 25 mg 07/13/20 23:45 07/14/20 21:59 Effexor PO 25 mg BID TAMAR Administration Nutrition/Malnutrition Assess - Dietary Evaluation Nutrition/Malnutrition Findings: Nutrition Notes Start: 07/14/20 13:38 Freq: Status: Active Protocol: Document 07/14/20 13:39 AL (Rec: 07/14/20 13:49 AL [email or web address]) Co-Sign 07/14/20 13:39 MK Nutrition Notes Need for Assessment generated from: us customs and border officer,MST Initial or Follow up Assessment Current Diagnosis CKD (stage V CKD),Diabetes, Hypertension Other Pertinent Diagnosis BPH, Peripheral Neuropathy, AMS, ESRD on HD Current Diet Renal Labs/Tests BUN 51 Cr 6.9 A1C 6.2 Pertinent Medications Reviewed Height 5 ft 8 in Weight 72.756 kg Usual Body Weight 68.039 kg [place] Body Weight (kg) 70.00 BMI 24.3 Weight Status Appropriate 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 Pt sounds weak and was difficult to understand. Pt reported eating 50% of breakfast and will attempt to eat lunch. Pt did not know if any wt loss was experienced but reported UBW 150 lbs. Burn Absent Trauma Absent Current % PO Fair (50-74%) Minimum of two criteria No physical signs of malnutrition #1 Nutrition Diagnosis Predicted suboptimal energy intake Etiology ESRD, AMS As Evidenced by Signs and Symptoms pt eats 50% of meals Is patient on ventilator? No Is Patient Ambulatory and/or Out of Bed No REE-(Holly-St. Jeor-confined to bed) [phone] Calculation Used for Recommendations Holly-St Jeor Additional Notes Pro: 90 g Pro/day (>1.2 g/kg) Fluid: 1 ml/kcal Nutrition Intervention Change Diet Order: Continue Renal Diet Goal #1 Meet at least 75% of total energy and protein needs Anticipated Discharge Needs: Renal Diet Follow-Up By: 07/16/20 Additional Comments F/U for intakes
[2020-07-15] MEDS: ASPIRIN EC 81 MG TAB PO SCH (12:19)
[2020-07-16] MEDS: cloNIDine 0.1 MG TAB PO SCH ×3 (06:13→22:52)
[2020-07-16] MEDS: hydrALAZINE 25 MG TAB PO SCH ×3 (06:14→22:51)
[2020-07-16] MEDS: INSULIN LISPRO 100 UNIT/ML VIAL 3 mL SUB-Q SCH ×4 (09:37→22:57)
--- NOTE | 2020-07-16 10:45 | Progress Note ---
Assessment and Plan Assessment and plan: --Metabolic encephalopathy; Current Visit: Yes Status: Acute Plan to address problem: patient is confused multifactorial Underlying disease process, advanced age Possible dementia, supportive care -- Hypertensive encephalopathy Current Visit: Yes Status: Acute Plan to address problem: Due to uncontrolled blood pressures -- End stage renal disease on dialysis Current Visit: Yes Status: Chronic Plan to address problem: Patient on dialysis per schedule Nephrology following -- Insulin dependent diabetes mellitus Current Visit: Yes Status: Chronic Plan to address problem: Check hemoglobin A1c and continue home insulin Coverage for now with moderate dose sliding scale protocol --Peripheral neuropathy Current Visit: Yes Status: Chronic Plan to address problem: Patient initiated on gabapentin --Mild protein calorie malnutrition; albumin 3.4 Current Visit: Yes Status: Chronic Plan to address problem: nutrition supplements and supportive care -- BPH (benign prostatic hyperplasia) Current Visit: Yes Status: Chronic Plan to address problem: Continue Flomax -- Gout Current Visit: Yes Status: Inactive Plan to address problem: Continue allopurinol 100 mg once a day for prevention -- DVT prophylaxis Current Visit: Yes Status: Acute Plan to address problem: On heparin and GI prophylaxis Patient feels better possible discharge home tomorrow if stable History Interval history: I have seen and examined the patient in his room this afternoon Patient's chart and medications reviewed Patient received hemodialysis Confused at times, sometimes restraint for safety Alert and awake responding to simple questions appropriately Vital signs noted Hospitalist Physical - Constitutional Vitals: Temp Pulse Resp BP Pulse Ox 99.0 F 69 17 151/86 96 07/15/20 16:46 07/16/20 06:14 07/15/20 22:07 07/16/20 06:14 07/15/20 22:07 General appearance: Present: no acute distress, well-nourished, other - EENT Eyes: Present: PERRL, EOM intact - Neck Neck: Present: supple, normal ROM - Respiratory Respiratory effort: normal Respiratory: bilateral: diminished, negative: rales, rhonchi, wheezing - Cardiovascular Rhythm: regular Heart Sounds: Present: S1 & S2 - Extremities Extremities: no ischemia, No edema - Abdominal General gastrointestinal: soft, non-tender, non-distended, normal bowel sounds - Integumentary Integumentary: Present: clear, warm - Psychiatric Psychiatric: appropriate mood/affect, cooperative - Neurologic Neurologic: moves all extremities HEART Score - HEART Score Age: > 65 Risk factors: > 3 risk factors or hx of atherosclerotic disease Troponin: Troponin T 0.158 ng/mL (0.00-0.029) H* 07/13/20 16:13 Troponin: 1-3x normal limit - Critical Actions Critical Actions: 4-6 pts:12-16.6% risk of adverse cardiac event. Should be admitted Results - Labs CBC & Chem 7: 07/14/20 05:48 07/14/20 05:48 Labs: Laboratory Last Values WBC 4.8 K/mm3 (4.5-11.0) 07/14/20 05:48 RBC 3.77 M/mm3 (3.65-5.03) 07/14/20 05:48 Hgb 12.0 gm/dl (11.8-15.2) 07/14/20 05:48 Hct 36.5 % (35.5-45.6) 07/14/20 05:48 MCV 97 fl (84-94) H 07/14/20 05:48 MCH 32 pg (28-32) 07/14/20 05:48 MCHC 33 % (32-34) 07/14/20 05:48 RDW 17.6 % (13.2-15.2) H 07/14/20 05:48 Plt Count 98 K/mm3 (140-440) L 07/14/20 05:48 Lymph % (Auto) 27.1 % (13.4-35.0) 07/14/20 05:48 [place] % (Auto) 9.9 % (0.0-7.3) H 07/14/20 05:48 Eos % (Auto) 4.9 % (0.0-4.3) H 07/14/20 05:48 Baso % (Auto) 0.4 % (0.0-1.8) 07/14/20 05:48 Lymph # (Auto) 1.3 K/mm3 (1.2-5.4) 07/14/20 05:48 [place] # (Auto) 0.5 K/mm3 (0.0-0.8) 07/14/20 05:48 Eos # (Auto) 0.2 K/mm3 (0.0-0.4) 07/14/20 05:48 Baso # (Auto) 0.0 K/mm3 (0.0-0.1) 07/14/20 05:48 Seg Neutrophils % 57.7 % (40.0-70.0) 07/14/20 05:48 Seg Neutrophils # 2.8 K/mm3 (1.8-7.7) 07/14/20 05:48 PT 12.2 Sec. (12.2-14.9) 07/13/20 16:13 INR 0.89 (0.87-1.13) 07/13/20 16:13 APTT 26.7 Sec. (24.2-36.6) 07/13/20 16:13 Sodium 144 mmol/L (137-145) 07/14/20 05:48 Potassium 4.6 mmol/L (3.6-5.0) 07/14/20 05:48 Chloride 98.9 mmol/L (98-107) 07/14/20 05:48 Carbon Dioxide 22 mmol/L (22-30) 07/14/20 05:48 Anion Gap 28 mmol/L 07/14/20 05:48 BUN 51 mg/dL (9-20) H 07/14/20 05:48 Creatinine 6.9 mg/dL (0.8-1.3) H 07/14/20 05:48 Estimated GFR 8 ml/min 07/14/20 05:48 BUN/Creatinine Ratio 7 % 07/14/20 05:48 Glucose 168 mg/dL (75-100) H 07/14/20 05:48 POC Glucose 117 mg/dL (70-105) H 07/16/20 07:37 Hemoglobin A1c 6.2 % (4-6) H 07/13/20 23:00 Lactic Acid 1.80 mmol/L (0.7-2.0) 07/13/20 16:13 Calcium 8.9 mg/dL (8.4-10.2) 07/14/20 05:48 Total Bilirubin 0.70 mg/dL (0.1-1.2) 07/14/20 05:48 AST 23 units/L (5-40) 07/14/20 05:48 ALT 13 units/L (7-56) 07/14/20 05:48 Alkaline Phosphatase 75 units/L (35-129) 07/14/20 05:48 Ammonia 28.0 umol/L (25-60) 07/13/20 16:13 Troponin T 0.158 ng/mL (0.00-0.029) H* 07/13/20 16:13 NT-Pro-B Natriuret Pep 88533 pg/mL (0-900) H 07/13/20 18:22 Total Protein 6.0 g/dL (6.3-8.2) L 07/14/20 05:48 Albumin 3.4 g/dL (3.9-5) L 07/14/20 05:48 Albumin/Globulin Ratio 1.3 % 07/14/20 05:48 Triglycerides 81 mg/dL (2-149) 07/13/20 16:13 Cholesterol 146 mg/dL (50-199) 07/13/20 16:13 LDL Cholesterol Direct 88 mg/dL (50-130) 07/13/20 16:13 HDL Cholesterol 47 mg/dL (40-59) 07/13/20 16:13 Cholesterol/HDL Ratio 3.10 % 07/13/20 16:13 Salicylates < 0.3 mg/dL (2.8-20.0) L 07/13/20 16:13 Acetaminophen 5.0 ug/mL (10.0-30.0) L 07/13/20 16:13 Plasma/Serum Alcohol < 0.01 % (0-0.07) 07/13/20 16:13 Hepatitis A IgM Ab Non-reactive (NonReactive) 07/14/20 12:58 Hep Bs Antigen Non-reactive (Negative) 07/14/20 12:58 Hep B Core IgM Ab Non-reactive (NonReactive) 07/14/20 12:58 Hepatitis C Antibody Non-reactive (NonReactive) 07/14/20 12:58 Microbiology: Microbiology 07/13/20 16:17 Peripheral/Venous Blood Culture - Preliminary NO GROWTH AFTER 48 HOURS 07/13/20 16:13 Peripheral/Venous Blood Culture - Preliminary NO GROWTH AFTER 48 HOURS [place]/IV: Voiding Method Condom Catheter IV Catheter Type [Right Upper INT / Saline Lock arm] IV Catheter Type [Right INT / Saline Lock Forearm] IV Catheter Type [Right INT / Saline Lock Antecubital] Active Medications - Current Medications Current Medications: Generic Name Dose Route Start Last Admin Trade Name Freq PRN Reason Stop Dose Admin Acetaminophen 650 mg 07/13/20 23:08 Tylenol PO Q4H PRN Pain MILD(1-3)/Fever >100.5/MATUTE Allopurinol 100 mg 07/14/20 10:00 07/15/20 11:14 Zyloprim PO 100 mg QDAY TAMAR Administration Aspirin 81 mg 07/14/20 10:00 07/15/20 12:19 Halfprin Ec PO Not Given DAILY TAMAR Atorvastatin Calcium 10 mg 07/14/20 10:00 07/15/20 11:12 Atorvastatin PO 10 mg DAILY TAMAR Administration Clonidine HCl 0.3 mg 07/14/20 11:00 07/16/20 06:13 Catapres PO 0.3 mg Q8HR TAMAR Administration Famotidine 10 mg 07/14/20 10:00 07/15/20 22:20 Pepcid PO 10 mg BID TAMAR Administration Heparin Sodium (Porcine) 5,000 unit 07/13/20 23:15 07/15/20 22:16 Heparin SUB-Q 5,000 unit Q12HR TAMAR Administration Hydralazine HCl 50 mg 07/13/20 23:45 07/16/20 06:14 Apresoline PO 50 mg Q8HR TAMAR Administration Sodium Chloride 100 mls @ 999 mls/hr 07/14/20 10:36 Nacl 0.9% IV RADHA PRN Hypotension Insulin Glargine 5 units 07/13/20 23:45 07/15/20 23:30 Lantus SUB-Q 5 units BID TAMAR Administration Insulin Human Lispro 0 unit 07/14/20 07:30 07/16/20 09:37 Humalog SUB-Q Not Given ACHS [facility] Protocol Ondansetron HCl 4 mg 07/13/20 23:08 Zofran IV Q8H PRN Nausea And Vomiting Sodium Chloride 10 ml 07/14/20 10:00 07/15/20 23:33 Sodium Chloride Flush Syringe 10 Ml IV 10 ml BID TAMAR Administration Sodium Chloride 10 ml 07/13/20 23:08 Sodium Chloride Flush Syringe 10 Ml IV PRN PRN LINE FLUSH Tamsulosin HCl 0.4 mg 07/14/20 10:00 07/15/20 11:12 Flomax PO 0.4 mg QDAY TAMAR Administration Valsartan 160 mg 07/13/20 23:45 07/15/20 23:36 Diovan PO Not Given Q12H [facility] Venlafaxine HCl 25 mg 07/13/20 23:45 07/15/20 22:21 Effexor PO 25 mg BID TAMAR Administration Nutrition/Malnutrition Assess - Dietary Evaluation Nutrition/Malnutrition Findings: Nutrition Notes Start: 07/14/20 13:38 Freq: Status: Active Protocol: Document 07/14/20 13:39 AL (Rec: 07/14/20 13:49 AL [email or web address]) Co-Sign 07/14/20 13:39 MK Nutrition Notes 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 Pt sounds weak and was difficult to understand. Pt reported eating 50% of breakfast and will attempt to eat lunch. Pt did not know if any wt loss was experienced but reported UBW 150 lbs. Burn Absent Trauma Absent Current % PO Fair (50-74%) Minimum of two criteria No physical signs of malnutrition #1 Nutrition Diagnosis Predicted suboptimal energy intake Etiology ESRD, AMS As Evidenced by Signs and Symptoms pt eats 50% of meals Is patient on ventilator? No Is Patient Ambulatory and/or Out of Bed No [facility] [phone] Calculation Used for Recommendations [facility] Additional Notes Pro: 90 g Pro/day (>1.2 g/kg) Fluid: 1 ml/kcal Nutrition Intervention Change Diet Order: Continue Renal Diet Goal #1 Meet at least 75% of total energy and protein needs Anticipated Discharge Needs: Renal Diet Follow-Up By: 07/16/20 Additional Comments F/U for intakes
--- NOTE | 2020-07-16 16:21 | Progress Note ---
Assessment and Plan - Patient Problems (1) Hypertensive encephalopathy Current Visit: Yes Status: Acute Plan to address problem: Hypertensive encephalopathy with toxic encephalopathy on presentation secondary to gabapentin. Patient off of Cardene drip. On oral antihypertensive medications. Blood pressure improved but still suboptimal. Will adjust medications.. Suspect baseline dementia. Follow-up blood pressure on adjusted medications (2) Type 2 diabetes mellitus with diabetic chronic kidney disease Current Visit: Yes Status: Acute Plan to address problem: Blood sugar control by primary attending (3) End stage renal disease on dialysis Current Visit: Yes Status: Chronic Plan to address problem: Hemodialysis tomorrow (4) Peripheral neuropathy Current Visit: Yes Status: Chronic Qualifiers: Peripheral neuropathy type: polyneuropathy, unspecified Qualified Code(s): G62.9 - Polyneuropathy, unspecified Plan to address problem: Avoid gabapentin or Lyrica for now. Follow-up (5) Gout Current Visit: Yes Status: Inactive Plan to address problem: Continue treatment Subjective Principal diagnosis: End-stage renal disease on hemodialysis Interval history: Patient seen lying in bed. He is more awake today. He is still confused. Denies any chest pain or shortness of breath Objective - Exam Narrative Exam: Elderly -[place]er male lying in no acute distress HEENT: NCAT, Neck: Supple, no venous distention CVS: S1S2 RRR loud S2 with no murmur, rub or gallop Chest: Clear to auscultation Abdomen: Protuberant, soft, nontender, no organomegaly, bowel sounds are present Extremities: + edema, left upper extremity AV graft with good thrill and bruit Skin warm and dry no rash Genitourinary deferred Neuro: Awake, alert, disoriented to place and time no focal deficits - Vital Signs Vital signs: Vital Signs - 12hr 07/16/20 07/16/20 06:13 06:14 Pulse Rate 69 69 Blood Pressure 151/85 151/86 - Lab 07/14/20 05:48 07/14/20 05:48 Most recent lab results Calcium 8.9 mg/dL (8.4-10.2) 07/14/20 05:48 Medications & Allergies - Medications Allergies/Adverse Reactions: Allergies acetaminophen [From Percocet] Allergy (Verified 07/13/20 14:52) Unknown oxycodone [From Percocet] Allergy (Verified 07/13/20 14:52) Unknown lisinopril Adverse Reaction (Verified 07/13/20 14:53) Unknown Home Medications: Home Medications Medication Instructions Recorded Confirmed Last Taken Type Aspirin [Adult Aspirin] 81 mg PO DAILY 07/13/20 07/13/20 Unknown History Atorvastatin Calcium [Lipitor] 10 mg PO DAILY 07/13/20 07/13/20 Unknown History Gabapentin [Neurontin] 200 mg PO Q2D 07/13/20 07/13/20 Unknown History Insulin Glargine [Lantus VIAL] 5 unit SUB-Q BID 07/13/20 07/13/20 Unknown History Tamsulosin [Flomax] 0.4 mg PO QDAY 07/13/20 07/13/20 Unknown History Venlafaxine [Effexor 25mg tab] 25 mg PO BID 07/13/20 07/13/20 Unknown History allopurinoL [Zyloprim] 100 mg PO QDAY 07/13/20 07/13/20 Unknown History cloNIDine [Catapres] 0.3 mg PO BID 07/13/20 07/13/20 Unknown History Active Medications: Generic Name Dose Route Start Last Admin Trade Name Freq PRN Reason Stop Dose Admin Acetaminophen 650 mg 07/13/20 23:08 Tylenol PO Q4H PRN Pain MILD(1-3)/Fever >100.5/MATUTE Allopurinol 100 mg 07/14/20 10:00 07/15/20 11:14 Zyloprim PO 100 mg QDAY TAMAR Administration Aspirin 81 mg 07/14/20 10:00 07/15/20 12:19 Halfprin Ec PO Not Given DAILY TAMAR Atorvastatin Calcium 10 mg 07/14/20 10:00 07/15/20 11:12 Atorvastatin PO 10 mg DAILY TAMAR Administration Clonidine HCl 0.3 mg 07/14/20 11:00 07/16/20 06:13 Catapres PO 0.3 mg Q8HR TAMAR Administration Famotidine 10 mg 07/14/20 10:00 07/15/20 22:20 Pepcid PO 10 mg BID TAMAR Administration Heparin Sodium (Porcine) 5,000 unit 07/13/20 23:15 07/15/20 22:16 Heparin SUB-Q 5,000 unit Q12HR TAMAR Administration Hydralazine HCl 50 mg 07/13/20 23:45 07/16/20 06:14 Apresoline PO 50 mg Q8HR TAMAR Administration Sodium Chloride 100 mls @ 999 mls/hr 07/14/20 10:36 Nacl 0.9% IV RADHA PRN Hypotension Insulin Glargine 5 units 07/13/20 23:45 07/15/20 23:30 Lantus SUB-Q 5 units BID TAMAR Administration Insulin Human Lispro 0 unit 07/14/20 07:30 07/16/20 09:37 Humalog SUB-Q Not Given ACHS [facility] Protocol Ondansetron HCl 4 mg 07/13/20 23:08 Zofran IV Q8H PRN Nausea And Vomiting Sodium Chloride 10 ml 07/14/20 10:00 07/15/20 23:33 Sodium Chloride Flush Syringe 10 Ml IV 10 ml BID TAMAR Administration Sodium Chloride 10 ml 07/13/20 23:08 Sodium Chloride Flush Syringe 10 Ml IV PRN PRN LINE FLUSH Tamsulosin HCl 0.4 mg 07/14/20 10:00 07/15/20 11:12 Flomax PO 0.4 mg QDAY TAMAR Administration Valsartan 160 mg 07/13/20 23:45 07/15/20 23:36 Diovan PO Not Given Q12H TAMAR Venlafaxine HCl 25 mg 07/13/20 23:45 07/15/20 22:21 Effexor PO 25 mg BID TAMAR Administration
[2020-07-16] MEDS: VENLAFAXINE 25 MG TAB PO SCH ×2 (17:20→21:50)
[2020-07-16] MEDS: INSULIN GLARGINE 100 UNITS/ML SUB-Q SCH ×2 (17:20→22:57)
[2020-07-16] MEDS: FAMOTIDINE 10 MG TAB PO SCH ×2 (17:20→21:50)
[2020-07-16] MEDS: HEPARIN 5,000 UNIT/1 ML VIAL SUB-Q SCH ×2 (17:20→21:50)
[2020-07-16] MEDS: VALSARTAN 160MG TAB PO SCH ×2 (17:21→23:08)
[2020-07-16] MEDS: allopurinoL 100 MG TAB PO SCH (17:28)
[2020-07-16] MEDS: TAMSULOSIN 0.4 MG CAP PO SCH (17:28)
[2020-07-16] MEDS: ASPIRIN EC 81 MG TAB PO SCH (17:28)
[2020-07-17] MEDS: cloNIDine 0.1 MG TAB PO SCH ×3 (06:41→21:48)
[2020-07-17] MEDS: hydrALAZINE 25 MG TAB PO SCH ×3 (06:43→21:50)
[2020-07-17] MEDS: INSULIN LISPRO 100 UNIT/ML VIAL 3 mL SUB-Q SCH ×4 (08:24→22:20)
[2020-07-17] MEDS: allopurinoL 100 MG TAB PO SCH (09:30)
[2020-07-17] MEDS: FAMOTIDINE 10 MG TAB PO SCH ×2 (09:30→21:51)
[2020-07-17] MEDS: HEPARIN 5,000 UNIT/1 ML VIAL SUB-Q SCH ×2 (09:30→21:52)
[2020-07-17] MEDS: TAMSULOSIN 0.4 MG CAP PO SCH (09:30)
[2020-07-17] MEDS: ASPIRIN EC 81 MG TAB PO SCH (09:30)
[2020-07-17] MEDS: VENLAFAXINE 25 MG TAB PO SCH ×2 (09:32→22:59)
[2020-07-17] MEDS: INSULIN GLARGINE 100 UNITS/ML SUB-Q SCH ×2 (09:32→22:20)
--- NOTE | 2020-07-17 10:26 | Progress Note ---
Assessment and Plan - Patient Problems (1) Hypertensive encephalopathy Current Visit: Yes Status: Acute Plan to address problem: Hypertensive encephalopathy with toxic encephalopathy on presentation. Patient off of Cardene drip. On oral antihypertensive medications. Blood pressure improved but still suboptimal. Suspect baseline dementia. Adjust antihypertensive medications. Follow-up blood pressure on adjusted medications (2) Type 2 diabetes mellitus with diabetic chronic kidney disease Current Visit: Yes Status: Acute Plan to address problem: Blood sugar control by primary attending (3) End stage renal disease on dialysis Current Visit: Yes Status: Chronic Plan to address problem: Hemodialysis tomorrow (4) Peripheral neuropathy Current Visit: Yes Status: Chronic Qualifiers: Peripheral neuropathy type: polyneuropathy, unspecified Qualified Code(s): G62.9 - Polyneuropathy, unspecified Plan to address problem: Avoid gabapentin or Lyrica for now. Follow-up (5) Gout Current Visit: Yes Status: Inactive Plan to address problem: Continue treatment Subjective Date of service: 07/17/20 Principal diagnosis: End-stage renal disease on hemodialysis Interval history: Patient seen lying in bed. He is more awake today. Denies any chest pain or shortness of breath Objective - Exam Narrative Exam: Elderly -[place]onese male lying in no acute distress HEENT: NCAT, Neck: Supple, no venous distention CVS: S1S2 RRR loud S2 with no murmur, rub or gallop Chest: Clear to auscultation Abdomen: Protuberant, soft, nontender, no organomegaly, bowel sounds are present Extremities: + edema, left upper extremity AV graft with good thrill and bruit Skin warm and dry no rash Genitourinary deferred Neuro: Awake, alert, disoriented to place and time no focal deficits - Vital Signs Vital signs: Vital Signs - 12hr 07/16/20 07/16/20 07/16/20 22:48 22:51 22:52 Temperature 99.0 F Pulse Rate 75 74 74 Respiratory 20 Rate Blood Pressure 184/79 184/79 184/79 O2 Sat by Pulse 96 Oximetry 07/16/20 07/17/20 07/17/20 23:08 02:36 06:38 Temperature Pulse Rate 74 Respiratory Rate Blood Pressure 184/79 171/64 194/72 O2 Sat by Pulse Oximetry 07/17/20 07/17/20 06:41 06:43 Temperature Pulse Rate Respiratory Rate Blood Pressure 194/72 194/72 O2 Sat by Pulse Oximetry - Lab 07/14/20 05:48 07/14/20 05:48 Most recent lab results Calcium 8.9 mg/dL (8.4-10.2) 07/14/20 05:48 Medications & Allergies - Medications Allergies/Adverse Reactions: Allergies acetaminophen [From Percocet] Allergy (Verified 07/13/20 14:52) Unknown oxycodone [From Percocet] Allergy (Verified 07/13/20 14:52) Unknown lisinopril Adverse Reaction (Verified 07/13/20 14:53) Unknown Home Medications: Home Medications Medication Instructions Recorded Confirmed Last Taken Type Aspirin [Adult Aspirin] 81 mg PO DAILY 07/13/20 07/13/20 Unknown History Atorvastatin Calcium [Lipitor] 10 mg PO DAILY 07/13/20 07/13/20 Unknown History Gabapentin [Neurontin] 200 mg PO Q2D 07/13/20 07/13/20 Unknown History Insulin Glargine [Lantus VIAL] 5 unit SUB-Q BID 07/13/20 07/13/20 Unknown History Tamsulosin [Flomax] 0.4 mg PO QDAY 07/13/20 07/13/20 Unknown History Venlafaxine [Effexor 25mg tab] 25 mg PO BID 07/13/20 07/13/20 Unknown History allopurinoL [Zyloprim] 100 mg PO QDAY 07/13/20 07/13/20 Unknown History cloNIDine [Catapres] 0.3 mg PO BID 07/13/20 07/13/20 Unknown History Active Medications: Generic Name Dose Route Start Last Admin Trade Name Freq PRN Reason Stop Dose Admin Acetaminophen 650 mg 07/13/20 23:08 Tylenol PO Q4H PRN Pain MILD(1-3)/Fever >100.5/MATUTE Allopurinol 100 mg 07/14/20 10:00 07/17/20 09:30 Zyloprim PO 100 mg QDAY TAMAR Administration Aspirin 81 mg 07/14/20 10:00 07/17/20 09:30 Halfprin Ec PO 81 mg DAILY TAMAR Administration Atorvastatin Calcium 10 mg 07/14/20 10:00 07/17/20 09:30 Atorvastatin PO 10 mg DAILY TAMAR Administration Clonidine HCl 0.3 mg 07/14/20 11:00 07/17/20 06:41 Catapres PO 0.3 mg Q8HR TAMAR Administration Famotidine 10 mg 07/14/20 10:00 07/17/20 09:30 Pepcid PO 10 mg BID TAMAR Administration Heparin Sodium (Porcine) 5,000 unit 07/13/20 23:15 07/17/20 09:30 Heparin SUB-Q 5,000 unit Q12HR TAMAR Administration Hydralazine HCl 50 mg 07/13/20 23:45 07/17/20 06:43 Apresoline PO 50 mg Q8HR TAMAR Administration Sodium Chloride 100 mls @ 999 mls/hr 07/14/20 10:36 Nacl 0.9% IV RADHA PRN Hypotension Insulin Glargine 5 units 07/13/20 23:45 07/17/20 09:32 Lantus SUB-Q 5 units BID TAMAR Administration Insulin Human Lispro 0 unit 07/14/20 07:30 07/17/20 08:24 Humalog SUB-Q Not Given ACHS [facility] Protocol Ondansetron HCl 4 mg 07/13/20 23:08 Zofran IV Q8H PRN Nausea And Vomiting Sodium Chloride 10 ml 07/14/20 10:00 07/16/20 21:51 Sodium Chloride Flush Syringe 10 Ml IV 10 ml BID TAMAR Administration Sodium Chloride 10 ml 07/13/20 23:08 Sodium Chloride Flush Syringe 10 Ml IV PRN PRN LINE FLUSH Tamsulosin HCl 0.4 mg 07/14/20 10:00 07/17/20 09:30 Flomax PO 0.4 mg QDAY TAMAR Administration Valsartan 160 mg 07/13/20 23:45 07/16/20 23:08 Diovan PO 160 mg Q12H TAMAR Administration Venlafaxine HCl 25 mg 07/13/20 23:45 07/17/20 09:32 Effexor PO 25 mg BID TAMAR Administration
--- NOTE | 2020-07-17 11:49 | Progress Note ---
Assessment and Plan Assessment and plan: Possible discharge in 1 to 2 days Interiano PCR test requested for placement per DC planning I discussed with case management yesterday --Metabolic encephalopathy; Current Visit: Yes Status: Acute Plan to address problem: patient is confused multifactorial, probably due to dementia Supportive care, safety representative versus restraints as needed -- Hypertensive encephalopathy Current Visit: Yes Status: Acute Plan to address problem: Due to uncontrolled blood pressures -- End stage renal disease on dialysis Current Visit: Yes Status: Chronic Plan to address problem: Patient on dialysis per schedule Nephrology following -- Insulin dependent diabetes mellitus Current Visit: Yes Status: Chronic Plan to address problem: Check hemoglobin A1c and continue home insulin Coverage for now with moderate dose sliding scale protocol --Peripheral neuropathy Current Visit: Yes Status: Chronic Plan to address problem: Patient initiated on gabapentin --Mild protein calorie malnutrition; albumin 3.4 Current Visit: Yes Status: Chronic Plan to address problem: nutrition supplements and supportive care -- BPH (benign prostatic hyperplasia) Current Visit: Yes Status: Chronic Plan to address problem: Continue Flomax -- Gout Current Visit: Yes Status: Inactive Plan to address problem: Continue allopurinol 100 mg once a day for prevention -- DVT prophylaxis Current Visit: Yes Status: Acute Plan to address problem: On heparin and GI prophylaxis Patient feels better possible discharge home tomorrow if stable History Interval history: I have seen and examined the patient at the bedside Patient's chart and medications reviewed Patient is alert and awake, eating his food Responding to simple questions appropriately confused at times However severely agitated getting out of the bed Requiring restraints Vital signs noted Hospitalist Physical - Constitutional Vitals: Temp Pulse Resp BP Pulse Ox 99.0 F 74 20 194/72 96 07/16/20 22:48 07/16/20 23:08 07/16/20 22:48 07/17/20 06:43 07/16/20 22:48 General appearance: Present: no acute distress, well-nourished, other - EENT Eyes: Present: PERRL, EOM intact - Neck Neck: Present: supple, normal ROM - Respiratory Respiratory effort: normal Respiratory: bilateral: diminished, negative: rales, rhonchi, wheezing - Cardiovascular Rhythm: regular Heart Sounds: Present: S1 & S2 - Extremities Extremities: no ischemia, No edema - Abdominal General gastrointestinal: soft, non-tender, non-distended, normal bowel sounds - Integumentary Integumentary: Present: clear, warm - Psychiatric Psychiatric: appropriate mood/affect, cooperative - Neurologic Neurologic: CNII-XII intact, moves all extremities HEART Score - HEART Score Age: > 65 Risk factors: > 3 risk factors or hx of atherosclerotic disease Troponin: Troponin T 0.158 ng/mL (0.00-0.029) H* 07/13/20 16:13 Troponin: 1-3x normal limit - Critical Actions Critical Actions: 4-6 pts:12-16.6% risk of adverse cardiac event. Should be admitted Results - Labs CBC & Chem 7: 07/14/20 05:48 07/14/20 05:48 Labs: Laboratory Last Values WBC 4.8 K/mm3 (4.5-11.0) 07/14/20 05:48 RBC 3.77 M/mm3 (3.65-5.03) 07/14/20 05:48 Hgb 12.0 gm/dl (11.8-15.2) 07/14/20 05:48 Hct 36.5 % (35.5-45.6) 07/14/20 05:48 MCV 97 fl (84-94) H 07/14/20 05:48 MCH 32 pg (28-32) 07/14/20 05:48 MCHC 33 % (32-34) 07/14/20 05:48 RDW 17.6 % (13.2-15.2) H 07/14/20 05:48 Plt Count 98 K/mm3 (140-440) L 07/14/20 05:48 Lymph % (Auto) 27.1 % (13.4-35.0) 07/14/20 05:48 [place] % (Auto) 9.9 % (0.0-7.3) H 07/14/20 05:48 Eos % (Auto) 4.9 % (0.0-4.3) H 07/14/20 05:48 Baso % (Auto) 0.4 % (0.0-1.8) 07/14/20 05:48 Lymph # (Auto) 1.3 K/mm3 (1.2-5.4) 07/14/20 05:48 [place] # (Auto) 0.5 K/mm3 (0.0-0.8) 07/14/20 05:48 Eos # (Auto) 0.2 K/mm3 (0.0-0.4) 07/14/20 05:48 Baso # (Auto) 0.0 K/mm3 (0.0-0.1) 07/14/20 05:48 Seg Neutrophils % 57.7 % (40.0-70.0) 07/14/20 05:48 Seg Neutrophils # 2.8 K/mm3 (1.8-7.7) 07/14/20 05:48 PT 12.2 Sec. (12.2-14.9) 07/13/20 16:13 INR 0.89 (0.87-1.13) 07/13/20 16:13 APTT 26.7 Sec. (24.2-36.6) 07/13/20 16:13 Sodium 144 mmol/L (137-145) 07/14/20 05:48 Potassium 4.6 mmol/L (3.6-5.0) 07/14/20 05:48 Chloride 98.9 mmol/L (98-107) 07/14/20 05:48 Carbon Dioxide 22 mmol/L (22-30) 07/14/20 05:48 Anion Gap 28 mmol/L 07/14/20 05:48 BUN 51 mg/dL (9-20) H 07/14/20 05:48 Creatinine 6.9 mg/dL (0.8-1.3) H 07/14/20 05:48 Estimated GFR 8 ml/min 07/14/20 05:48 BUN/Creatinine Ratio 7 % 07/14/20 05:48 Glucose 168 mg/dL (75-100) H 07/14/20 05:48 POC Glucose 137 mg/dL (70-105) H 07/17/20 08:09 Hemoglobin A1c 6.2 % (4-6) H 07/13/20 23:00 Lactic Acid 1.80 mmol/L (0.7-2.0) 07/13/20 16:13 Calcium 8.9 mg/dL (8.4-10.2) 07/14/20 05:48 Total Bilirubin 0.70 mg/dL (0.1-1.2) 07/14/20 05:48 AST 23 units/L (5-40) 07/14/20 05:48 ALT 13 units/L (7-56) 07/14/20 05:48 Alkaline Phosphatase 75 units/L (35-129) 07/14/20 05:48 Ammonia 28.0 umol/L (25-60) 07/13/20 16:13 Troponin T 0.158 ng/mL (0.00-0.029) H* 07/13/20 16:13 NT-Pro-B Natriuret Pep 11399 pg/mL (0-900) H 07/13/20 18:22 Total Protein 6.0 g/dL (6.3-8.2) L 07/14/20 05:48 Albumin 3.4 g/dL (3.9-5) L 07/14/20 05:48 Albumin/Globulin Ratio 1.3 % 07/14/20 05:48 Triglycerides 81 mg/dL (2-149) 07/13/20 16:13 Cholesterol 146 mg/dL (50-199) 07/13/20 16:13 LDL Cholesterol Direct 88 mg/dL (50-130) 07/13/20 16:13 HDL Cholesterol 47 mg/dL (40-59) 07/13/20 16:13 Cholesterol/HDL Ratio 3.10 % 07/13/20 16:13 Salicylates < 0.3 mg/dL (2.8-20.0) L 07/13/20 16:13 Acetaminophen 5.0 ug/mL (10.0-30.0) L 07/13/20 16:13 Plasma/Serum Alcohol < 0.01 % (0-0.07) 07/13/20 16:13 Hepatitis A IgM Ab Non-reactive (NonReactive) 07/14/20 12:58 Hep Bs Antigen Non-reactive (Negative) 07/14/20 12:58 Hep B Core IgM Ab Non-reactive (NonReactive) 07/14/20 12:58 Hepatitis C Antibody Non-reactive (NonReactive) 07/14/20 12:58 Microbiology: Microbiology 07/13/20 16:17 Peripheral/Venous Blood Culture - Preliminary NO GROWTH AFTER 72 HOURS 07/13/20 16:13 Peripheral/Venous Blood Culture - Preliminary NO GROWTH AFTER 72 HOURS [place]/IV: Voiding Method Diaper IV Catheter Type [Left Upper INT / Saline Lock arm] IV Catheter Type [Right Upper INT / Saline Lock arm] IV Catheter Type [Right INT / Saline Lock Forearm] IV Catheter Type [Right INT / Saline Lock Antecubital] Active Medications - Current Medications Current Medications: Generic Name Dose Route Start Last Admin Trade Name Freq PRN Reason Stop Dose Admin Acetaminophen 650 mg 07/13/20 23:08 Tylenol PO Q4H PRN Pain MILD(1-3)/Fever >100.5/MATUTE Allopurinol 100 mg 07/14/20 10:00 07/17/20 09:30 Zyloprim PO 100 mg QDAY TAMAR Administration Aspirin 81 mg 07/14/20 10:00 07/17/20 09:30 Halfprin Ec PO 81 mg DAILY TAMAR Administration Atorvastatin Calcium 10 mg 07/14/20 10:00 07/17/20 09:30 Atorvastatin PO 10 mg DAILY TAMAR Administration Clonidine HCl 0.3 mg 07/14/20 11:00 07/17/20 06:41 Catapres PO 0.3 mg Q8HR TAMAR Administration Famotidine 10 mg 07/14/20 10:00 07/17/20 09:30 Pepcid PO 10 mg BID TAMAR Administration Heparin Sodium (Porcine) 5,000 unit 07/13/20 23:15 07/17/20 09:30 Heparin SUB-Q 5,000 unit Q12HR TAMAR Administration Hydralazine HCl 50 mg 07/13/20 23:45 07/17/20 06:43 Apresoline PO 50 mg Q8HR TAMAR Administration Sodium Chloride 100 mls @ 999 mls/hr 07/14/20 10:36 Nacl 0.9% IV RADHA PRN Hypotension Insulin Glargine 5 units 07/13/20 23:45 07/17/20 09:32 Lantus SUB-Q 5 units BID TAMAR Administration Insulin Human Lispro 0 unit 07/14/20 07:30 07/17/20 08:24 Humalog SUB-Q Not Given ACHS [facility] Protocol Metoprolol Tartrate 50 mg 07/17/20 11:00 Metoprolol PO BID [facility] Nifedipine 30 mg 07/17/20 11:00 Procardia Xl PO Q12HR [facility] Ondansetron HCl 4 mg 07/13/20 23:08 Zofran IV Q8H PRN Nausea And Vomiting Sodium Chloride 10 ml 07/14/20 10:00 07/16/20 21:51 Sodium Chloride Flush Syringe 10 Ml IV 10 ml BID TAMAR Administration Sodium Chloride 10 ml 07/13/20 23:08 Sodium Chloride Flush Syringe 10 Ml IV PRN PRN LINE FLUSH Tamsulosin HCl 0.4 mg 07/14/20 10:00 07/17/20 09:30 Flomax PO 0.4 mg QDAY TAMAR Administration Valsartan 160 mg 07/13/20 23:45 07/16/20 23:08 Diovan PO 160 mg Q12H TAMAR Administration Venlafaxine HCl 25 mg 07/13/20 23:45 07/17/20 09:32 Effexor PO 25 mg BID TAMAR Administration Nutrition/Malnutrition Assess - Dietary Evaluation Nutrition/Malnutrition Findings: Nutrition Notes Start: 07/14/20 13:38 Freq: Status: Active Protocol: Document 07/16/20 12:00 LM (Rec: 07/16/20 12:13 LM [id number]) Nutrition Notes Initial or Follow up Reassessment Current Diagnosis CKD (stage V CKD),Diabetes, Hypertension Other Pertinent Diagnosis BPH, Peripheral Neuropathy, AMS, ESRD on HD Current Diet Renal Labs/Tests Reviewed Pertinent Medications Reviewed Height 5 ft 8 in Weight 73 kg [place] Body Weight (kg) 70.00 BMI 24.5 Weight Status Appropriate Subjective/Other Information Unable to reach pt by phone. Pt in HD, confused per RN notes. Pt has poor intakes in chart yesterday. Will order ONS. Burn Absent Trauma Absent Current % PO Poor (25-49%) Minimum of two criteria No physical signs of malnutrition #2 Nutrition Diagnosis Inadequate oral intake Etiology ESRD, AMS As Evidenced by Signs and Symptoms Pt with 25-50% intakes #1 Nutrition Diagnosis Predicted suboptimal energy intake Diagnosis Progress(for reassessment Resolved documentation) Is patient on ventilator? No Is Patient Ambulatory and/or Out of Bed No [facility] 0054.061 Calculation Used for Recommendations [facility] Additional Notes Pro: 90 g Pro/day (>1.2 g/kg) Fluid: 1 ml/kcal Nutrition Intervention Change Diet Order: Continue Renal Diet Add Supplement/Snack (indicate name/kcal Nepro BID /protein ) Provides kCal: 850 Provides Protein (gm) 38 Goal #1 Meet at least 75% of total energy and protein needs Anticipated Discharge Needs: Renal Diet Follow-Up By: 07/19/20 Additional Comments F/U for PO/ONS intakes
[2020-07-17] MEDS: METOPROLOL TARTRATE 50 MG TAB PO SCH ×2 (13:16→21:51)
[2020-07-17] MEDS: NIFEdipine XL 30 MG TAB PO SCH ×2 (13:19→21:50)
[2020-07-17] MEDS: VALSARTAN 160MG TAB PO SCH ×2 (13:23→23:22)
[2020-07-17] MEDS ORDERED: HALOPERIDOL LACTATE 5 MG/1 ML INJ IM PRN (16:14)
--- NOTE | 2020-07-17 20:03 | Event Note ---
Date: 07/17/20 I called patient's Ms. Harvey Robertson at [phone] and discussed about patient's condition, dialysis schedule His confusion, requiring restraints, treatment and discharge planning in detail. Ms. Harvey Diaz reports, that patient has been Confused for many weeks, and requires restraints at the facility, and during the previous admission in [place]. Also discussed about the discharge planning, requirement of Covid testing prior to discharging to the custodial. I have addressed all her questions and concerns and encouraged her to call back if she needs any more information. I informed the nurse about my conversation with the patient's
[2020-07-18] MEDS: cloNIDine 0.1 MG TAB PO SCH ×3 (06:11→21:37)
[2020-07-18] MEDS: hydrALAZINE 25 MG TAB PO SCH ×3 (06:13→21:36)
[2020-07-18] MEDS: INSULIN LISPRO 100 UNIT/ML VIAL 3 mL SUB-Q SCH ×4 (08:00→22:29)
[2020-07-18] MEDS: METOPROLOL TARTRATE 50 MG TAB PO SCH ×2 (10:19→21:37)
[2020-07-18] MEDS: allopurinoL 100 MG TAB PO SCH (10:19)
[2020-07-18] MEDS: VENLAFAXINE 25 MG TAB PO SCH ×2 (10:19→21:41)
[2020-07-18] MEDS: FAMOTIDINE 10 MG TAB PO SCH ×2 (10:20→21:41)
[2020-07-18] MEDS: NIFEdipine XL 30 MG TAB PO SCH ×2 (10:20→22:31)
[2020-07-18] MEDS: ASPIRIN EC 81 MG TAB PO SCH (10:21)
[2020-07-18] MEDS: TAMSULOSIN 0.4 MG CAP PO SCH (10:21)
[2020-07-18] MEDS: HEPARIN 5,000 UNIT/1 ML VIAL SUB-Q SCH ×2 (10:21→21:41)
[2020-07-18] MEDS: INSULIN GLARGINE 100 UNITS/ML SUB-Q SCH (10:21)
--- NOTE | 2020-07-18 10:58 | Progress Note ---
Assessment and Plan Assessment and plan: --Interiano PCR test negative : 07/18/2020 Possible discharge tomorrow if stable --Metabolic encephalopathy; Current Visit: Yes Status: Acute Plan to address problem: patient is confused multifactorial, probably due to dementia Supportive care, director safety versus restraints as needed I discussed with patient's , patient is confused intermittently for a long time even at the reliable rehab , MD facility -- Hypertensive encephalopathy Current Visit: Yes Status: Acute Plan to address problem: Due to uncontrolled blood pressures Blood pressures reasonable control -- End stage renal disease on dialysis Current Visit: Yes Status: Chronic Plan to address problem: Hemodialysis per schedule Nephrology following -- Insulin dependent diabetes mellitus Current Visit: Yes Status: Chronic Plan to address problem: Hb A1c 6.2 and continue home insulin Coverage for now with moderate dose sliding scale protocol --Peripheral neuropathy Current Visit: Yes Status: Chronic Plan to address problem: Patient initiated on gabapentin --Mild protein calorie malnutrition; albumin 3.4 Current Visit: Yes Status: Chronic Plan to address problem: nutrition supplements and supportive care -- BPH (benign prostatic hyperplasia) Current Visit: Yes Status: Chronic Plan to address problem: Continue Flomax -- Gout Current Visit: Yes Status: Inactive Plan to address problem: Continue allopurinol 100 mg once a day for prevention -- DVT prophylaxis Current Visit: Yes Status: Acute Plan to address problem: On heparin and GI prophylaxis Possible discharge to SNF/rehab tomorrow if stable Patient needs to be off restraints 24 hours prior to discharge tomorrow We will request for director safety and DC restraints Discussed with charge nurse Ms. Powers History Interval history: I have seen and examined the patient at the bedside I have seen patient's chart and medications reviewed Alert and awake confused at times Patient is requiring restraints as he is getting out of the bed No new complaints reported per nursing Vital signs noted Hospitalist Physical - Constitutional Vitals: Temp Pulse Resp BP Pulse Ox 97.3 F L 67 18 194/80 100 07/18/20 05:18 07/18/20 10:19 07/18/20 05:18 07/18/20 10:19 07/18/20 05:18 General appearance: Present: no acute distress, well-nourished, other - EENT Eyes: Present: PERRL, EOM intact - Neck Neck: Present: supple, normal ROM - Respiratory Respiratory effort: normal Respiratory: bilateral: diminished, negative: rales, rhonchi, wheezing - Cardiovascular Rhythm: regular Heart Sounds: Present: S1 & S2 - Extremities Extremities: no ischemia, No edema - Abdominal General gastrointestinal: soft, non-tender, non-distended, normal bowel sounds - Integumentary Integumentary: Present: clear, warm - Psychiatric Psychiatric: appropriate mood/affect, cooperative, other (Confused at times) - Neurologic Neurologic: CNII-XII intact, moves all extremities HEART Score - HEART Score Age: > 65 Risk factors: > 3 risk factors or hx of atherosclerotic disease Troponin: Troponin T 0.158 ng/mL (0.00-0.029) H* 07/13/20 16:13 Troponin: 1-3x normal limit - Critical Actions Critical Actions: 4-6 pts:12-16.6% risk of adverse cardiac event. Should be admitted Results - Labs CBC & Chem 7: 07/14/20 05:48 07/14/20 05:48 Labs: Laboratory Last Values WBC 4.8 K/mm3 (4.5-11.0) 07/14/20 05:48 RBC 3.77 M/mm3 (3.65-5.03) 07/14/20 05:48 Hgb 12.0 gm/dl (11.8-15.2) 07/14/20 05:48 Hct 36.5 % (35.5-45.6) 07/14/20 05:48 MCV 97 fl (84-94) H 07/14/20 05:48 MCH 32 pg (28-32) 07/14/20 05:48 MCHC 33 % (32-34) 07/14/20 05:48 RDW 17.6 % (13.2-15.2) H 07/14/20 05:48 Plt Count 98 K/mm3 (140-440) L 07/14/20 05:48 Lymph % (Auto) 27.1 % (13.4-35.0) 07/14/20 05:48 [place] % (Auto) 9.9 % (0.0-7.3) H 07/14/20 05:48 Eos % (Auto) 4.9 % (0.0-4.3) H 07/14/20 05:48 Baso % (Auto) 0.4 % (0.0-1.8) 07/14/20 05:48 Lymph # (Auto) 1.3 K/mm3 (1.2-5.4) 07/14/20 05:48 [place] # (Auto) 0.5 K/mm3 (0.0-0.8) 07/14/20 05:48 Eos # (Auto) 0.2 K/mm3 (0.0-0.4) 07/14/20 05:48 Baso # (Auto) 0.0 K/mm3 (0.0-0.1) 07/14/20 05:48 Seg Neutrophils % 57.7 % (40.0-70.0) 07/14/20 05:48 Seg Neutrophils # 2.8 K/mm3 (1.8-7.7) 07/14/20 05:48 PT 12.2 Sec. (12.2-14.9) 07/13/20 16:13 INR 0.89 (0.87-1.13) 07/13/20 16:13 APTT 26.7 Sec. (24.2-36.6) 07/13/20 16:13 Sodium 144 mmol/L (137-145) 07/14/20 05:48 Potassium 4.6 mmol/L (3.6-5.0) 07/14/20 05:48 Chloride 98.9 mmol/L (98-107) 07/14/20 05:48 Carbon Dioxide 22 mmol/L (22-30) 07/14/20 05:48 Anion Gap 28 mmol/L 07/14/20 05:48 BUN 51 mg/dL (9-20) H 07/14/20 05:48 Creatinine 6.9 mg/dL (0.8-1.3) H 07/14/20 05:48 Estimated GFR 8 ml/min 07/14/20 05:48 BUN/Creatinine Ratio 7 % 07/14/20 05:48 Glucose 168 mg/dL (75-100) H 07/14/20 05:48 POC Glucose 121 mg/dL (70-105) H 07/17/20 21:46 Hemoglobin A1c 6.2 % (4-6) H 07/13/20 23:00 Lactic Acid 1.80 mmol/L (0.7-2.0) 07/13/20 16:13 Calcium 8.9 mg/dL (8.4-10.2) 07/14/20 05:48 Total Bilirubin 0.70 mg/dL (0.1-1.2) 07/14/20 05:48 AST 23 units/L (5-40) 07/14/20 05:48 ALT 13 units/L (7-56) 07/14/20 05:48 Alkaline Phosphatase 75 units/L (35-129) 07/14/20 05:48 Ammonia 28.0 umol/L (25-60) 07/13/20 16:13 Troponin T 0.158 ng/mL (0.00-0.029) H* 07/13/20 16:13 NT-Pro-B Natriuret Pep 00303 pg/mL (0-900) H 07/13/20 18:22 Total Protein 6.0 g/dL (6.3-8.2) L 07/14/20 05:48 Albumin 3.4 g/dL (3.9-5) L 07/14/20 05:48 Albumin/Globulin Ratio 1.3 % 07/14/20 05:48 Triglycerides 81 mg/dL (2-149) 07/13/20 16:13 Cholesterol 146 mg/dL (50-199) 07/13/20 16:13 LDL Cholesterol Direct 88 mg/dL (50-130) 07/13/20 16:13 HDL Cholesterol 47 mg/dL (40-59) 07/13/20 16:13 Cholesterol/HDL Ratio 3.10 % 07/13/20 16:13 Salicylates < 0.3 mg/dL (2.8-20.0) L 07/13/20 16:13 Acetaminophen 5.0 ug/mL (10.0-30.0) L 07/13/20 16:13 Plasma/Serum Alcohol < 0.01 % (0-0.07) 07/13/20 16:13 Hepatitis A IgM Ab Non-reactive (NonReactive) 07/14/20 12:58 Hep Bs Antigen Non-reactive (Negative) 07/14/20 12:58 Hep B Core IgM Ab Non-reactive (NonReactive) 07/14/20 12:58 Hepatitis C Antibody Non-reactive (NonReactive) 07/14/20 12:58 Microbiology: Microbiology 07/13/20 16:17 Peripheral/Venous Blood Culture - Preliminary NO GROWTH AFTER 4 DAYS 07/13/20 16:13 Peripheral/Venous Blood Culture - Preliminary NO GROWTH AFTER 4 DAYS [place]/IV: Voiding Method Diaper IV Catheter Type [Left Upper INT / Saline Lock arm] IV Catheter Type [Right Upper INT / Saline Lock arm] IV Catheter Type [Right INT / Saline Lock Forearm] IV Catheter Type [Right INT / Saline Lock Antecubital] Active Medications - Current Medications Current Medications: Generic Name Dose Route Start Last Admin Trade Name Freq PRN Reason Stop Dose Admin Acetaminophen 650 mg 07/13/20 23:08 07/17/20 13:16 Tylenol PO 650 mg Q4H PRN Administration Pain MILD(1-3)/Fever >100.5/MATUTE Allopurinol 100 mg 07/14/20 10:00 07/18/20 10:19 Zyloprim PO 100 mg QDAY TAMAR Administration Aspirin 81 mg 07/14/20 10:00 07/18/20 10:21 Halfprin Ec PO 81 mg DAILY TAMAR Administration Atorvastatin Calcium 10 mg 07/14/20 10:00 07/18/20 10:19 Atorvastatin PO 10 mg DAILY TAMAR Administration Clonidine HCl 0.3 mg 07/14/20 11:00 07/18/20 06:11 Catapres PO 0.3 mg Q8HR TAMAR Administration Famotidine 10 mg 07/14/20 10:00 07/18/20 10:20 Pepcid PO 10 mg BID TAMAR Administration Haloperidol Lactate 2 mg 07/17/20 16:14 Haldol IM Q6H PRN Agitation Heparin Sodium (Porcine) 5,000 unit 07/13/20 23:15 07/18/20 10:21 Heparin SUB-Q 5,000 unit Q12HR TAMAR Administration Hydralazine HCl 50 mg 07/13/20 23:45 07/18/20 06:13 Apresoline PO 50 mg Q8HR TAMAR Administration Sodium Chloride 100 mls @ 999 mls/hr 07/14/20 10:36 Nacl 0.9% IV RADHA PRN Hypotension Insulin Glargine 5 units 07/13/20 23:45 07/18/20 10:21 Lantus SUB-Q Not Given BID [facility] Insulin Human Lispro 0 unit 07/14/20 07:30 07/17/20 22:20 Humalog SUB-Q Not Given ACHS [facility] Protocol Metoprolol Tartrate 50 mg 07/17/20 11:00 07/18/20 10:19 Metoprolol PO 50 mg BID TAMAR Administration Nifedipine 30 mg 07/17/20 11:00 07/18/20 10:20 Procardia Xl PO 30 mg Q12HR TAMAR Administration Ondansetron HCl 4 mg 07/13/20 23:08 Zofran IV Q8H PRN Nausea And Vomiting Sodium Chloride 10 ml 07/14/20 10:00 07/18/20 10:21 Sodium Chloride Flush Syringe 10 Ml IV 10 ml BID TAMAR Administration Sodium Chloride 10 ml 07/13/20 23:08 Sodium Chloride Flush Syringe 10 Ml IV PRN PRN LINE FLUSH Tamsulosin HCl 0.4 mg 07/14/20 10:00 07/18/20 10:21 Flomax PO 0.4 mg QDAY TAMAR Administration Valsartan 160 mg 07/13/20 23:45 07/17/20 23:22 Diovan PO 160 mg Q12H TAMAR Administration Venlafaxine HCl 25 mg 07/13/20 23:45 07/18/20 10:19 Effexor PO 25 mg BID TAMAR Administration Nutrition/Malnutrition Assess - Dietary Evaluation Nutrition/Malnutrition Findings: Nutrition Notes Start: 07/14/20 13:38 Freq: Status: Active Protocol: Document 07/16/20 12:00 LM (Rec: 07/16/20 12:13 LM [id number]) Nutrition Notes Initial or Follow up Reassessment Current Diagnosis CKD (stage V CKD),Diabetes, Hypertension Other Pertinent Diagnosis BPH, Peripheral Neuropathy, AMS, ESRD on HD Current Diet Renal Labs/Tests Reviewed Pertinent Medications Reviewed Height 5 ft 8 in Weight 73 kg [place] Body Weight (kg) 70.00 BMI 24.5 Weight Status Appropriate Subjective/Other Information Unable to reach pt by phone. Pt in HD, confused per RN notes. Pt has poor intakes in chart yesterday. Will order ONS. Burn Absent Trauma Absent Current % PO Poor (25-49%) Minimum of two criteria No physical signs of malnutrition #2 Nutrition Diagnosis Inadequate oral intake Etiology ESRD, AMS As Evidenced by Signs and Symptoms Pt with 25-50% intakes #1 Nutrition Diagnosis Predicted suboptimal energy intake Diagnosis Progress(for reassessment Resolved documentation) Is patient on ventilator? No Is Patient Ambulatory and/or Out of Bed No REE-([facility]confined [facility] bed) 7631.973 Calculation Used for Recommendations [facility] Additional Notes Pro: 90 g Pro/day (>1.2 g/kg) Fluid: 1 ml/kcal Nutrition Intervention Change Diet Order: Continue Renal Diet Add Supplement/Snack (indicate name/kcal Nepro BID /protein ) Provides kCal: 850 Provides Protein (gm) 38 Goal #1 Meet at least 75% of total energy and protein needs Anticipated Discharge Needs: Renal Diet Follow-Up By: 07/19/20 Additional Comments F/U for PO/ONS intakes
[2020-07-18] MEDS: VALSARTAN 160MG TAB PO SCH ×2 (13:26→22:31)
--- NOTE | 2020-07-18 14:52 | Progress Note ---
Assessment and Plan - Patient Problems (1) Hypertensive encephalopathy Current Visit: Yes Status: Acute Plan to address problem: Hypertensive encephalopathy with toxic encephalopathy on presentation. Patient off of Cardene drip. On oral antihypertensive medications. Blood pressure improved but spiked again last night. Nurse denies any agitation . Suspect baseline dementia. Adjust antihypertensive medications. Follow-up blood pressure on adjusted medications (2) Type 2 diabetes mellitus with diabetic chronic kidney disease Current Visit: Yes Status: Acute Plan to address problem: Blood sugar control by primary attending (3) End stage renal disease on dialysis Current Visit: Yes Status: Chronic Plan to address problem: Hemodialysis tomorrow (4) Peripheral neuropathy Current Visit: Yes Status: Chronic Qualifiers: Peripheral neuropathy type: polyneuropathy, unspecified Qualified Code(s): G62.9 - Polyneuropathy, unspecified Plan to address problem: Avoid gabapentin or Lyrica for now. Follow-up (5) Gout Current Visit: Yes Status: Inactive Plan to address problem: Continue treatment Subjective Date of service: 07/18/20 Principal diagnosis: End-stage renal disease on hemodialysis Interval history: Patient seen lying in bed. He is awake today. Still confused. Denies any chest pain or shortness of breath Objective - Exam Narrative Exam: Elderly -Filipino male lying in no acute distress HEENT: NCAT, Neck: Supple, no venous distention CVS: S1S2 RRR loud S2 with no murmur, rub or gallop Chest: Clear to auscultation Abdomen: Protuberant, soft, nontender, no organomegaly, bowel sounds are present Extremities: + edema, left upper extremity AV graft with good thrill and bruit Skin warm and dry no rash Genitourinary deferred Neuro: Awake, alert, disoriented to place and time no focal deficits - Vital Signs Vital signs: Vital Signs - 12hr 07/18/20 07/18/20 07/18/20 05:18 06:11 06:13 Temperature 97.3 F L Pulse Rate 77 77 77 Respiratory 18 Rate Blood Pressure 213/85 213/85 213/85 Blood Pressure [Right] O2 Sat by Pulse 100 Oximetry 07/18/20 07/18/20 07/18/20 10:19 12:46 13:00 Temperature 97.9 F 98.1 F Pulse Rate 67 67 68 Respiratory 18 Rate Blood Pressure 194/80 Blood Pressure 167/73 190/81 [Right] O2 Sat by Pulse 104 H Oximetry 07/18/20 07/18/20 07/18/20 13:15 13:24 13:26 Temperature 98.1 F Pulse Rate 63 81 Respiratory 18 Rate Blood Pressure 224/88 190/81 Blood Pressure 190/81 [Right] O2 Sat by Pulse 99 Oximetry - Lab 07/14/20 05:48 07/14/20 05:48 Most recent lab results Calcium 8.9 mg/dL (8.4-10.2) 07/14/20 05:48 Medications & Allergies - Medications Allergies/Adverse Reactions: Allergies acetaminophen [From Percocet] Allergy (Verified 07/13/20 14:52) Unknown oxycodone [From Percocet] Allergy (Verified 07/13/20 14:52) Unknown lisinopril Adverse Reaction (Verified 07/13/20 14:53) Unknown Home Medications: Home Medications Medication Instructions Recorded Confirmed Last Taken Type Aspirin [Adult Aspirin] 81 mg PO DAILY 07/13/20 07/13/20 Unknown History Atorvastatin Calcium [Lipitor] 10 mg PO DAILY 07/13/20 07/13/20 Unknown History Gabapentin [Neurontin] 200 mg PO Q2D 07/13/20 07/13/20 Unknown History Insulin Glargine [Lantus VIAL] 5 unit SUB-Q BID 07/13/20 07/13/20 Unknown History Tamsulosin [Flomax] 0.4 mg PO QDAY 07/13/20 07/13/20 Unknown History Venlafaxine [Effexor 25mg tab] 25 mg PO BID 07/13/20 07/13/20 Unknown History allopurinoL [Zyloprim] 100 mg PO QDAY 07/13/20 07/13/20 Unknown History cloNIDine [Catapres] 0.3 mg PO BID 07/13/20 07/13/20 Unknown History Active Medications: Generic Name Dose Route Start Last Admin Trade Name Freq PRN Reason Stop Dose Admin Acetaminophen 650 mg 07/13/20 23:08 07/17/20 13:16 Tylenol PO 650 mg Q4H PRN Administration Pain MILD(1-3)/Fever >100.5/MATUTE Allopurinol 100 mg 07/14/20 10:00 07/18/20 10:19 Zyloprim PO 100 mg QDAY TAMAR Administration Aspirin 81 mg 07/14/20 10:00 07/18/20 10:21 Halfprin Ec PO 81 mg DAILY TAMAR Administration Atorvastatin Calcium 10 mg 07/14/20 10:00 07/18/20 10:19 Atorvastatin PO 10 mg DAILY TAMAR Administration Clonidine HCl 0.3 mg 07/14/20 11:00 07/18/20 13:26 Catapres PO 0.3 mg Q8HR TAMAR Administration Famotidine 10 mg 07/14/20 10:00 07/18/20 10:20 Pepcid PO 10 mg BID TAMAR Administration Haloperidol Lactate 2 mg 07/17/20 16:14 Haldol IM Q6H PRN Agitation Heparin Sodium (Porcine) 5,000 unit 07/13/20 23:15 07/18/20 10:21 Heparin SUB-Q 5,000 unit Q12HR TAMAR Administration Hydralazine HCl 50 mg 07/13/20 23:45 07/18/20 13:27 Apresoline PO 50 mg Q8HR TAMAR Administration Sodium Chloride 100 mls @ 999 mls/hr 07/14/20 10:36 Nacl 0.9% IV RADHA PRN Hypotension Insulin Glargine 5 units 07/13/20 23:45 07/18/20 10:21 Lantus SUB-Q Not Given BID [facility] Insulin Human Lispro 0 unit 07/14/20 07:30 07/18/20 13:04 Humalog SUB-Q Not Given [facility] Protocol Labetalol HCl 10 mg 07/18/20 13:55 Labetalol IV Q4HR PRN Hypertension Metoprolol Tartrate 50 mg 07/17/20 11:00 07/18/20 10:19 Metoprolol PO 50 mg BID TAMAR Administration Nifedipine 30 mg 07/17/20 11:00 07/18/20 10:20 Procardia Xl PO 30 mg Q12HR TAMAR Administration Ondansetron HCl 4 mg 07/13/20 23:08 Zofran IV Q8H PRN Nausea And Vomiting Sodium Chloride 10 ml 07/14/20 10:00 07/18/20 10:21 Sodium Chloride Flush Syringe 10 Ml IV 10 ml BID TAMAR Administration Sodium Chloride 10 ml 07/13/20 23:08 Sodium Chloride Flush Syringe 10 Ml IV PRN PRN LINE FLUSH Tamsulosin HCl 0.4 mg 07/14/20 10:00 07/18/20 10:21 Flomax PO 0.4 mg QDAY TAMAR Administration Valsartan 160 mg 07/13/20 23:45 07/18/20 13:26 Diovan PO 160 mg Q12H TAMAR Administration Venlafaxine HCl 25 mg 07/13/20 23:45 07/18/20 10:19 Effexor PO 25 mg BID TAMAR Administration
[2020-07-19] MEDS: hydrALAZINE 25 MG TAB PO SCH ×3 (06:23→21:26)
[2020-07-19] MEDS: cloNIDine 0.1 MG TAB PO SCH ×3 (06:24→21:26)
--- NOTE | 2020-07-19 09:27 | Discharge Summary ---
Providers - Providers Date of Admission: 07/13/20 19:16 Date of discharge: 07/19/20 Attending physician: ANGELICA ROOT 07/13/20 19:19 Consult to Physician [CONS] Routine Comment: called answ. serv./ irma Consulting Provider: CHANTAL GALVAN Physician Instructions: Reason For Exam: end stage renal disease on dialysis 07/15/20 10:20 Physical Therapy Evaluation and Treat [CONS] Routine Comment: Reason For Exam: General debility/evaluate and treat/DC needs Primary care physician: [employer] INTERVIEWER Hospitalization Reason for admission: Altered mental status/metabolic encephalopathy/hypertensive emergency Condition: Fair Pertinent studies: CT head without contrast; no acute abnormality Chest x-ray; no acute abnormality Hospital course: 75-year-old male patient with history of hypertension, end-stage renal disease, insulin-dependent diabetes, BPH, gout and peripheral neuropathy Was admitted through emergency room with altered level of consciousness, hypertensive emergency with blood pressures of 240/130, Patient also had bleeding from his AV fistula site. Patient received 1 unit of PRBC transfusion with improvement Initial evaluation is consistent with hypertensive emergency, managed with multiple antihypertensives Evaluated by nephrology, medications optimized, received hemodialysis per schedule Patient is confused at times requiring restraints Case management and bilingual social worker evaluate the patient and processed the discharge planning Today patient is comfortable no new complaints, vital signs reviewed Received today's hemodialysis, stable at discharge Discharge diagnosis; --Interiano PCR test negative : 07/18/2020 Possible discharge tomorrow if stable --Metabolic encephalopathy; Current Visit: Yes Status: Acute Plan to address problem: patient is confused multifactorial, probably due to dementia Improved -- Hypertensive encephalopathy Current Visit: Yes Status: Acute Plan to address problem: Due to uncontrolled blood pressures Blood pressures reasonable control -- End stage renal disease on dialysis Current Visit: Yes Status: Chronic Plan to address problem: Hemodialysis per schedule Nephrology following -- Insulin dependent diabetes mellitus Current Visit: Yes Status: Chronic Plan to address problem: Hb A1c 6.2 and continue home insulin Coverage for now with moderate dose sliding scale protocol --Peripheral neuropathy Current Visit: Yes Status: Chronic Plan to address problem: Patient initiated on gabapentin --Mild protein calorie malnutrition; albumin 3.4 Current Visit: Yes Status: Chronic Plan to address problem: nutrition supplements and supportive care -- BPH (benign prostatic hyperplasia) Current Visit: Yes Status: Chronic Plan to address problem: Continue Flomax -- Gout Current Visit: Yes Status: Inactive Plan to address problem: Continue allopurinol 100 mg once a day for prevention -- DVT prophylaxis Current Visit: Yes Status: Acute Plan to address problem: On heparin and GI prophylaxis Stable at discharge Disposition: [id number] Time spent for discharge: 33 min Core Measure Documentation - Palliative Care Palliative Care/ Comfort Measures: Not Applicable - Core Measures Any of the following diagnoses?: none Exam - Constitutional Vitals: Temp Pulse Resp BP Pulse Ox 97.7 F 72 18 140/56 99 07/19/20 04:10 07/19/20 06:24 07/19/20 04:10 07/19/20 06:24 07/19/20 04:10 General appearance: Present: no acute distress, well-nourished - EENT Eyes: Present: PERRL, EOM intact - Neck Neck: Present: supple, normal ROM - Respiratory Respiratory effort: normal Respiratory: bilateral: diminished, negative: rales, rhonchi, wheezing - Cardiovascular Rhythm: regular Heart Sounds: Present: S1 & S2 - Extremities Extremities: no ischemia, No edema - Abdominal General gastrointestinal: Present: soft, non-tender, non-distended, normal bowel sounds - Integumentary Integumentary: Present: warm - Musculoskeletal Musculoskeletal: strength equal bilaterally - Psychiatric Psychiatric: cooperative, other (Confused at times) - Neurologic Neurologic: moves all extremities Plan Activity: advance as tolerated, fall precautions Diet: renal (Mechanical soft diet) Additional Instructions: Follow renal/hemodialysis per schedule MWF. If you have worsening symptoms contact MD or go to emergency room as needed. Fall precautions, aspiration precautions Follow up with: PRIMARY MD JOSH [Primary Care Provider] - 3-5 Days HAYDEN ACOSTA MD [Staff Physician] - 7 Days
--- NOTE | 2020-07-19 10:49 | Progress Note ---
Assessment and Plan - Patient Problems (1) End stage renal disease on dialysis Current Visit: Yes Status: Chronic Plan to address problem: cont HD on MWF schedule. stable for discharge after HD (2) Altered mental status Current Visit: Yes Status: Acute Plan to address problem: Hypertensive encephalopathy with toxic encephalopathy on presentation. Patient off of Cardene drip. On oral antihypertensive medications. Blood pressure improved. Suspect baseline dementia. Follow-up blood pressure on adjusted medications (3) Hypertensive encephalopathy Current Visit: Yes Status: Acute (4) Type 2 diabetes mellitus with diabetic chronic kidney disease Current Visit: Yes Status: Acute Plan to address problem: Blood sugar control by primary attending (5) Peripheral neuropathy Current Visit: Yes Status: Chronic Qualifiers: Peripheral neuropathy type: polyneuropathy, unspecified Qualified Code(s): G62.9 - Polyneuropathy, unspecified Plan to address problem: Avoid gabapentin or Lyrica for now. Follow-up Subjective Date of service: 07/19/20 Principal diagnosis: End-stage renal disease on hemodialysis Interval history: Pt awake, alert, in no acute distress Objective - Vital Signs Vital signs: Vital Signs - 12hr 07/19/20 07/19/20 07/19/20 04:10 06:23 06:24 Temperature 97.7 F Pulse Rate 72 72 72 Respiratory 18 Rate Blood Pressure 140/56 140/56 140/56 O2 Sat by Pulse 99 Oximetry - General Appearance General appearance: well-developed, well-nourished, appears stated age EENT: ATNC, PERRL, mucous membranes moist Neck: no JVD Respiratory: Present: Clear to Ascultation Cardiology: regular, S1S2 Gastrointestinal: normoactive bowel sounds Integumentary: no rash, other (no edema ) Neurologic: no focal deficit, strength 5/5, CN 3-12 intact Psychiatric: mood/affect appropriate, cooperative - Lab 07/14/20 05:48 07/14/20 05:48 Most recent lab results Calcium 8.9 mg/dL (8.4-10.2) 07/14/20 05:48 Medications & Allergies - Medications Allergies/Adverse Reactions: Allergies acetaminophen [From Percocet] Allergy (Verified 07/13/20 14:52) Unknown oxycodone [From Percocet] Allergy (Verified 07/13/20 14:52) Unknown lisinopril Adverse Reaction (Verified 07/13/20 14:53) Unknown Home Medications: Home Medications Medication Instructions Recorded Confirmed Last Taken Type Aspirin [Adult Aspirin] 81 mg PO DAILY 07/13/20 07/13/20 Unknown History Atorvastatin Calcium [Lipitor] 10 mg PO DAILY 07/13/20 07/13/20 Unknown History Gabapentin [Neurontin] 200 mg PO Q2D 07/13/20 07/13/20 Unknown History Insulin Glargine [Lantus VIAL] 5 unit SUB-Q BID 07/13/20 07/13/20 Unknown History Tamsulosin [Flomax] 0.4 mg PO QDAY 07/13/20 07/13/20 Unknown History Venlafaxine [Effexor 25mg tab] 25 mg PO BID 07/13/20 07/13/20 Unknown History allopurinoL [Zyloprim] 100 mg PO QDAY 07/13/20 07/13/20 Unknown History cloNIDine [Catapres] 0.3 mg PO BID 07/13/20 07/13/20 Unknown History Active Medications: Generic Name Dose Route Start Last Admin Trade Name Freq PRN Reason Stop Dose Admin Acetaminophen 650 mg 07/13/20 23:08 07/17/20 13:16 Tylenol PO 650 mg Q4H PRN Administration Pain MILD(1-3)/Fever >100.5/MATUTE Allopurinol 100 mg 07/14/20 10:00 07/18/20 10:19 Zyloprim PO 100 mg QDAY TAMAR Administration Aspirin 81 mg 07/14/20 10:00 07/18/20 10:21 Halfprin Ec PO 81 mg DAILY TAMAR Administration Atorvastatin Calcium 10 mg 07/14/20 10:00 07/18/20 10:19 Atorvastatin PO 10 mg DAILY TAMAR Administration Clonidine HCl 0.3 mg 07/14/20 11:00 07/19/20 06:24 Catapres PO Not Given Q8HR TAMAR Famotidine 10 mg 07/14/20 10:00 07/18/20 21:41 Pepcid PO 10 mg BID TAMAR Administration Haloperidol Lactate 2 mg 07/17/20 16:14 Haldol IM Q6H PRN Agitation Heparin Sodium (Porcine) 5,000 unit 07/13/20 23:15 07/18/20 21:41 Heparin SUB-Q 5,000 unit Q12HR TAMAR Administration Hydralazine HCl 50 mg 07/13/20 23:45 07/19/20 06:23 Apresoline PO Not Given Q8HR [facility] Sodium Chloride 100 mls @ 999 mls/hr 07/14/20 10:36 Nacl 0.9% IV RADHA PRN Hypotension Insulin Human Lispro 0 unit 07/14/20 07:30 07/18/20 22:29 Humalog SUB-Q Not Given ACHS [facility] Protocol Labetalol HCl 10 mg 07/18/20 13:55 07/18/20 16:58 Labetalol IV 10 mg Q4HR PRN Administration Hypertension Metoprolol Tartrate 50 mg 07/17/20 11:00 07/18/20 21:37 Metoprolol PO Not Given BID [facility] Nifedipine 60 mg 07/18/20 14:53 07/18/20 22:31 Procardia Xl PO Not Given Q12HR [facility] Ondansetron HCl 4 mg 07/13/20 23:08 Zofran IV Q8H PRN Nausea And Vomiting Sodium Chloride 10 ml 07/14/20 10:00 07/19/20 02:59 Sodium Chloride Flush Syringe 10 Ml IV 10 ml BID TAMAR Administration Sodium Chloride 10 ml 07/13/20 23:08 Sodium Chloride Flush Syringe 10 Ml IV PRN PRN LINE FLUSH Tamsulosin HCl 0.4 mg 07/14/20 10:00 07/18/20 10:21 Flomax PO 0.4 mg QDAY [facility] Administration Valsartan 160 mg 07/13/20 23:45 07/18/20 22:31 Diovan PO Not Given Q12H [facility] Venlafaxine HCl 25 mg 07/13/20 23:45 07/18/20 21:41 Effexor PO 25 mg BID TAMAR Administration
[2020-07-19] MEDS: VENLAFAXINE 25 MG TAB PO SCH ×2 (11:48→21:26)
[2020-07-19] MEDS: TAMSULOSIN 0.4 MG CAP PO SCH (11:49)
[2020-07-19] MEDS: NIFEdipine XL 30 MG TAB PO SCH ×2 (11:49→21:26)
[2020-07-19] MEDS: ASPIRIN EC 81 MG TAB PO SCH (11:49)
[2020-07-19] MEDS: allopurinoL 100 MG TAB PO SCH (11:49)
[2020-07-19] MEDS: HEPARIN 5,000 UNIT/1 ML VIAL SUB-Q SCH ×2 (11:50→21:27)
[2020-07-19] MEDS: METOPROLOL TARTRATE 50 MG TAB PO SCH ×2 (11:50→21:26)
[2020-07-19] MEDS: FAMOTIDINE 10 MG TAB PO SCH ×2 (11:53→21:26)
[2020-07-19] MEDS: VALSARTAN 160MG TAB PO SCH ×2 (11:53→22:54)
[2020-07-19 19:22] VITALS: BP 169/82
--- NOTE | 2020-07-19 19:29 | Progress Note ---
Assessment and Plan Assessment and plan: --Interiano PCR test negative : 07/18/2020 Possible discharge tomorrow if stable --Metabolic encephalopathy; Current Visit: Yes Status: Acute Plan to address problem: patient is confused multifactorial, probably due to dementia Supportive care, loss prevention/safety district manager versus restraints as needed I discussed with patient's , patient is confused intermittently for a long time [facility] [place] [facility] -- Hypertensive encephalopathy Current Visit: Yes Status: Acute Plan to address problem: Due to uncontrolled blood pressures Blood pressures reasonable control -- End stage renal disease on dialysis Current Visit: Yes Status: Chronic Plan to address problem: Hemodialysis per schedule Nephrology following -- Insulin dependent diabetes mellitus Current Visit: Yes Status: Chronic Plan to address problem: Hb A1c 6.2 and continue home insulin Coverage for now with moderate dose sliding scale protocol --Peripheral neuropathy Current Visit: Yes Status: Chronic Plan to address problem: Patient initiated on gabapentin --Mild protein calorie malnutrition; albumin 3.4 Current Visit: Yes Status: Chronic Plan to address problem: nutrition supplements and supportive care -- BPH (benign prostatic hyperplasia) Current Visit: Yes Status: Chronic Plan to address problem: Continue Flomax -- Gout Current Visit: Yes Status: Inactive Plan to address problem: Continue allopurinol 100 mg once a day for prevention -- DVT prophylaxis Current Visit: Yes Status: Acute Plan to address problem: On heparin and GI prophylaxis Possible discharge to SNF/rehab tomorrow if stable Patient needs to be off restraints 24 hours prior to discharge tomorrow We will request for loss prevention/safety district manager and DC restraints Discussed with charge nurse Ms. Powers History Interval history: Seen and examined the patient at the bedside this morning Patient's chart and medications reviewed Patient is less confused today Vital signs noted Received hemodialysis today Hospitalist Physical - Constitutional Vitals: Temp Pulse Resp BP Pulse Ox 98.9 F 69 18 169/82 99 07/19/20 18:45 07/19/20 18:45 07/19/20 18:45 07/19/20 18:45 07/19/20 04:10 General appearance: Present: no acute distress, well-nourished, other - EENT Eyes: Present: PERRL, EOM intact - Neck Neck: Present: supple, normal ROM - Respiratory Respiratory effort: normal Respiratory: bilateral: diminished, rales, negative: rhonchi, wheezing - Cardiovascular Rhythm: regular Heart Sounds: Present: S1 & S2 - Extremities Extremities: no ischemia, No edema - Abdominal General gastrointestinal: soft, non-tender, non-distended, normal bowel sounds - Integumentary Integumentary: Present: clear, warm - Psychiatric Psychiatric: appropriate mood/affect, cooperative - Neurologic Neurologic: CNII-XII intact, moves all extremities HEART Score - HEART Score Age: > 65 Risk factors: > 3 risk factors or hx of atherosclerotic disease Troponin: Troponin T 0.158 ng/mL (0.00-0.029) H* 07/13/20 16:13 Troponin: 1-3x normal limit - Critical Actions Critical Actions: 4-6 pts:12-16.6% risk of adverse cardiac event. Should be admitted Results - Labs CBC & Chem 7: 07/14/20 05:48 07/14/20 05:48 Labs: Laboratory Last Values WBC 4.8 K/mm3 (4.5-11.0) 07/14/20 05:48 RBC 3.77 M/mm3 (3.65-5.03) 07/14/20 05:48 Hgb 12.0 gm/dl (11.8-15.2) 07/14/20 05:48 Hct 36.5 % (35.5-45.6) 07/14/20 05:48 MCV 97 fl (84-94) H 07/14/20 05:48 MCH 32 pg (28-32) 07/14/20 05:48 MCHC 33 % (32-34) 07/14/20 05:48 RDW 17.6 % (13.2-15.2) H 07/14/20 05:48 Plt Count 98 K/mm3 (140-440) L 07/14/20 05:48 Lymph % (Auto) 27.1 % (13.4-35.0) 07/14/20 05:48 Freestone % (Auto) 9.9 % (0.0-7.3) H 07/14/20 05:48 Eos % (Auto) 4.9 % (0.0-4.3) H 07/14/20 05:48 Baso % (Auto) 0.4 % (0.0-1.8) 07/14/20 05:48 Lymph # (Auto) 1.3 K/mm3 (1.2-5.4) 07/14/20 05:48 Freestone # (Auto) 0.5 K/mm3 (0.0-0.8) 07/14/20 05:48 Eos # (Auto) 0.2 K/mm3 (0.0-0.4) 07/14/20 05:48 Baso # (Auto) 0.0 K/mm3 (0.0-0.1) 07/14/20 05:48 Seg Neutrophils % 57.7 % (40.0-70.0) 07/14/20 05:48 Seg Neutrophils # 2.8 K/mm3 (1.8-7.7) 07/14/20 05:48 PT 12.2 Sec. (12.2-14.9) 07/13/20 16:13 INR 0.89 (0.87-1.13) 07/13/20 16:13 APTT 26.7 Sec. (24.2-36.6) 07/13/20 16:13 Sodium 144 mmol/L (137-145) 07/14/20 05:48 Potassium 4.6 mmol/L (3.6-5.0) 07/14/20 05:48 Chloride 98.9 mmol/L (98-107) 07/14/20 05:48 Carbon Dioxide 22 mmol/L (22-30) 07/14/20 05:48 Anion Gap 28 mmol/L 07/14/20 05:48 BUN 51 mg/dL (9-20) H 07/14/20 05:48 Creatinine 6.9 mg/dL (0.8-1.3) H 07/14/20 05:48 Estimated GFR 8 ml/min 07/14/20 05:48 BUN/Creatinine Ratio 7 % 07/14/20 05:48 Glucose 168 mg/dL (75-100) H 07/14/20 05:48 POC Glucose 142 mg/dL (70-105) H 07/19/20 12:49 Hemoglobin A1c 6.2 % (4-6) H 07/13/20 23:00 Lactic Acid 1.80 mmol/L (0.7-2.0) 07/13/20 16:13 Calcium 8.9 mg/dL (8.4-10.2) 07/14/20 05:48 Total Bilirubin 0.70 mg/dL (0.1-1.2) 07/14/20 05:48 AST 23 units/L (5-40) 07/14/20 05:48 ALT 13 units/L (7-56) 07/14/20 05:48 Alkaline Phosphatase 75 units/L (35-129) 07/14/20 05:48 Ammonia 28.0 umol/L (25-60) 07/13/20 16:13 Troponin T 0.158 ng/mL (0.00-0.029) H* 07/13/20 16:13 NT-Pro-B Natriuret Pep 81777 pg/mL (0-900) H 07/13/20 18:22 Total Protein 6.0 g/dL (6.3-8.2) L 07/14/20 05:48 Albumin 3.4 g/dL (3.9-5) L 07/14/20 05:48 Albumin/Globulin Ratio 1.3 % 07/14/20 05:48 Triglycerides 81 mg/dL (2-149) 07/13/20 16:13 Cholesterol 146 mg/dL (50-199) 07/13/20 16:13 LDL Cholesterol Direct 88 mg/dL (50-130) 07/13/20 16:13 HDL Cholesterol 47 mg/dL (40-59) 07/13/20 16:13 Cholesterol/HDL Ratio 3.10 % 07/13/20 16:13 Salicylates < 0.3 mg/dL (2.8-20.0) L 07/13/20 16:13 Acetaminophen 5.0 ug/mL (10.0-30.0) L 07/13/20 16:13 Plasma/Serum Alcohol < 0.01 % (0-0.07) 07/13/20 16:13 Coronavirus (PCR) Negative (Negative) 07/18/20 09:10 Hepatitis A IgM Ab Non-reactive (NonReactive) 07/14/20 12:58 Hep Bs Antigen Non-reactive (Negative) 07/14/20 12:58 Hep B Core IgM Ab Non-reactive (NonReactive) 07/14/20 12:58 Hepatitis C Antibody Non-reactive (NonReactive) 07/14/20 12:58 Microbiology: Microbiology 07/13/20 16:17 Peripheral/Venous Blood Culture - Final NO GROWTH AFTER 5 DAYS 07/13/20 16:13 Peripheral/Venous Blood Culture - Final NO GROWTH AFTER 5 DAYS [place]les/IV: Voiding Method Diaper IV Catheter Type [Left Upper INT / Saline Lock arm] IV Catheter Type [Right Upper INT / Saline Lock arm] IV Catheter Type [Right INT / Saline Lock Forearm] IV Catheter Type [Right INT / Saline Lock Antecubital] Active Medications - Current Medications Current Medications: Generic Name Dose Route Start Last Admin Trade Name Freq PRN Reason Stop Dose Admin Acetaminophen 650 mg 07/13/20 23:08 07/17/20 13:16 Tylenol PO 650 mg Q4H PRN Administration Pain MILD(1-3)/Fever >100.5/MATUTE Allopurinol 100 mg 07/14/20 10:00 07/19/20 11:49 Zyloprim PO 100 mg QDAY TAMAR Administration Aspirin 81 mg 07/14/20 10:00 07/19/20 11:49 Halfprin Ec PO 81 mg DAILY TAMAR Administration Atorvastatin Calcium 10 mg 07/14/20 10:00 07/19/20 11:50 Atorvastatin PO 10 mg DAILY TAMAR Administration Clonidine HCl 0.3 mg 07/14/20 11:00 07/19/20 18:46 Catapres PO Not Given Q8HR [facility] Famotidine 10 mg 07/14/20 10:00 07/19/20 11:53 Pepcid PO 10 mg BID TAMAR Administration Haloperidol Lactate 2 mg 07/17/20 16:14 Haldol IM Q6H PRN Agitation Heparin Sodium (Porcine) 5,000 unit 07/13/20 23:15 07/19/20 11:50 Heparin SUB-Q 5,000 unit Q12HR TAMAR Administration Hydralazine HCl 50 mg 07/13/20 23:45 07/19/20 18:45 Apresoline PO Not Given Q8HR [facility] Sodium Chloride 100 mls @ 999 mls/hr 07/14/20 10:36 Nacl 0.9% IV RADHA PRN Hypotension Insulin Human Lispro 0 unit 07/14/20 07:30 07/18/20 22:29 Humalog SUB-Q Not Given ACHS [facility] Protocol Labetalol HCl 10 mg 07/18/20 13:55 07/18/20 16:58 Labetalol IV 10 mg Q4HR PRN Administration Hypertension Metoprolol Tartrate 50 mg 07/17/20 11:00 07/19/20 11:50 Metoprolol PO 50 mg BID TAMAR Administration Nifedipine 60 mg 07/18/20 14:53 07/19/20 11:49 Procardia Xl PO 60 mg Q12HR TAMAR Administration Ondansetron HCl 4 mg 07/13/20 23:08 Zofran IV Q8H PRN Nausea And Vomiting Sodium Chloride 10 ml 07/14/20 10:00 07/19/20 11:54 Sodium Chloride Flush Syringe 10 Ml IV 10 ml BID TAMAR Administration Sodium Chloride 10 ml 07/13/20 23:08 Sodium Chloride Flush Syringe 10 Ml IV PRN PRN LINE FLUSH Tamsulosin HCl 0.4 mg 07/14/20 10:00 07/19/20 11:49 Flomax PO 0.4 mg QDAY TAMAR Administration Valsartan 160 mg 07/13/20 23:45 07/19/20 11:53 Diovan PO 160 mg Q12H TAMAR Administration Venlafaxine HCl 25 mg 07/13/20 23:45 07/19/20 11:48 Effexor PO 25 mg BID TAMAR Administration Nutrition/Malnutrition Assess - Dietary Evaluation Nutrition/Malnutrition Findings: Nutrition Notes Start: 07/14/20 13:38 Freq: Status: Active Protocol: Document 07/19/20 14:06 LM (Rec: 07/19/20 14:22 LM [email or web address]) Nutrition Notes Initial or Follow up Reassessment Current Diagnosis CKD (stage V CKD),Diabetes, Hypertension Other Pertinent Diagnosis BPH, Peripheral Neuropathy, AMS, ESRD on HD Current Diet Renal/mech soft Labs/Tests Reviewed Pertinent Medications Reviewed Height 5 ft 8 in Weight 73 kg [place] Body Weight (kg) 70.00 BMI 24.5 Weight Status Appropriate Subjective/Other Information RN stated pt is not eating too well and will be getting D/C' d today. Burn Absent Trauma Absent Current % PO Poor (25-49%) Minimum of two criteria No physical signs of malnutrition #2 Nutrition Diagnosis Inadequate oral intake Diagnosis Progress(for reassessment Continues documentation) Is patient on ventilator? No Is Patient Ambulatory and/or Out of Bed No REE-([facility]-confined to bed) 9519.816 Calculation Used for Recommendations [facility] Additional Notes Pro: 90 g Pro/day (>1.2 g/kg) Fluid: 1 ml/kcal Nutrition Intervention Change Diet Order: Continue Renal Diet Add Supplement/Snack (indicate name/kcal Nepro BID /protein ) Provides kCal: 850 Provides Protein (gm) 38 Goal #1 Meet at least 75% of total energy and protein needs Anticipated Discharge Needs: Renal Diet Follow-Up By: 07/21/20 Additional Comments F/U for PO/ONS intakes
[2020-07-19] MEDS: INSULIN LISPRO 100 UNIT/ML VIAL 3 mL SUB-Q SCH (21:34)
[2020-07-20] MEDS ORDERED: hydrALAZINE 25 MG TAB ONE (10:00)
[2020-07-20] MEDS ORDERED: VALSARTAN 160MG TAB ONE (11:00)
[2020-07-20] MEDS ORDERED: allopurinoL 100 MG TAB ONE (11:00)
[2020-07-20] MEDS ORDERED: cloNIDine 0.1 MG TAB ONE (11:00)
[2020-07-20] MEDS ORDERED: FAMOTIDINE 10 MG TAB ONE (11:00)
[2020-07-20] MEDS ORDERED: TAMSULOSIN 0.4 MG CAP PO ONE (11:00)
[2020-07-20] MEDS ORDERED: ASPIRIN EC 81 MG TAB PO ONE (11:00)
[2020-07-20] MEDS ORDERED: HEPARIN 5,000 UNIT/1 ML VIAL ONE (11:00)
[2020-07-20] MEDS ORDERED: NIFEdipine XL 30 MG TAB PO ONE (11:00)
[2020-07-20] MEDS ORDERED: METOPROLOL TARTRATE 50 MG TAB ONE (11:00)
== END 2020-07-20 11:52 | DRG 77 ==
LOC: ED 14:02 → 3A 19:16 → CC1 19:42 → 3A 07-14 20:27
PROVIDERS: ADMIT Internal Medicine; ATTEND Internal Medicine
PROC: 5A1D70Z Performance of Urinary Filtration, Intermittent, Less than 6 Hours Per Day (ICD-10-PCS; principal; 2020-07-14)
PROC: 5A1D70Z Performance of Urinary Filtration, Intermittent, Less than 6 Hours Per Day (ICD-10-PCS; 2020-07-16)
PROC: 5A1D70Z Performance of Urinary Filtration, Intermittent, Less than 6 Hours Per Day (ICD-10-PCS; 2020-07-19)
DX: I67.4 Hypertensive encephalopathy (principal); N18.6 End stage renal disease; G92 Toxic encephalopathy; I12.0 Hypertensive chronic kidney disease with stage 5 chronic kidney disease or end stage renal disease; I16.1 Hypertensive emergency; E44.1 Mild protein-calorie malnutrition; Z20.828 Contact with and (suspected) exposure to other viral communicable diseases; N40.0 Benign prostatic hyperplasia without lower urinary tract symptoms; M10.9 Gout, unspecified; T42.6X5A Adverse effect of other antiepileptic and sedative-hypnotic drugs, initial encounter; E11.42 Type 2 diabetes mellitus with diabetic polyneuropathy; E78.5 Hyperlipidemia, unspecified; E11.22 Type 2 diabetes mellitus with diabetic chronic kidney disease; F03.90 Unspecified dementia, unspecified severity, without behavioral disturbance, psychotic disturbance, mood disturbance, and anxiety; Z86.718 Personal history of other venous thrombosis and embolism; Z88.6 Allergy status to analgesic agent; Z88.5 Allergy status to narcotic agent; Z88.8 Allergy status to other drugs, medicaments and biological substances; Z82.49 Family history of ischemic heart disease and other diseases of the circulatory system; Z79.82 Long term (current) use of aspirin; Z79.4 Long term (current) use of insulin; Z99.2 Dependence on renal dialysis; Z68.24 Body mass index [BMI] 24.0-24.9, adult
CPT/HCPCS: 36415; 70450; 71045; 80053; 80061; 80074; 80320; 82140; 82962; 83036; 83880; 84484; 85025; 85610; 85730; 87040; 93005; 96374; G0378; A9270-GY; G0480; J1170; J1644; J1815; J7050; U0003

== ENCOUNTER 2021-01-13 16:50 | Inpatient (IN) | payer OTHER, MEDICARE ==
--- NOTE | 2021-01-13 17:13 | Event Note ---
Date: 01/13/21 75 year old male with ESRD with bleeding AV access. Bleeding controlled. Contacted by ER about patient. Patient is being admitted by the ER. Recommend NPO after MN except sips of water with meds for fistulogram tomorrow.
--- NOTE | 2021-01-13 17:13 | Emergency Department Report ---
- General Stated Complaint: BLEEDING FROM DIALYSIS SHANK Time Seen by Provider: 01/13/21 17:04 Source: patient, EMS, old records reviewed Mode of arrival: Stretcher Limitations: No Limitations - History of Present Illness Initial Comments: Chief complaint: Bleeding from AV fistula hypotension, near syncope HPI: This is a 75-year-old male with history of end-stage renal disease on hemodialysis Sunday, hypertension, end-stage renal disease, peripheral neuropathy, BPH, gout presents with bleeding from AV fistula of the left bicep. After completing dialysis, the needle was removed. Copious amount of bleeding then ensued. Patient had bleeding for approximately an hour. Clamp was placed by fire department first responders. Patient was initially hypertensive 170/110 per EMS. Patient had near syncopal episode with decreased level consciousness, blood pressure was 90/40 at that time. He received IV fluid via EMS. Patient is now back to baseline mental status and awareness. -: Sudden, This afternoon Location: other (Bleeding from left bicep AV fistula, syncope) Extremity Location: Left: Arm (Left bicep AV fistula) Place: other (Dialysis center) Context: other (Accessed AV fistula) Associated Symptoms: other (Hypotension near syncope) Treatments Prior to Arrival: other (Clamping pressure bandage IV fluid) - Related Data Home Medications Medication Instructions Recorded Confirmed Last Taken Aspirin [Adult Aspirin] 81 mg PO DAILY 07/13/20 07/13/20 Unknown Atorvastatin Calcium [Lipitor] 10 mg PO DAILY 07/13/20 07/13/20 Unknown Gabapentin [Neurontin] 200 mg PO Q2D 07/13/20 07/13/20 Unknown Insulin Glargine [Lantus VIAL] 5 unit SUB-Q BID 07/13/20 07/13/20 Unknown Tamsulosin [Flomax] 0.4 mg PO QDAY 07/13/20 07/13/20 Unknown Venlafaxine [Effexor 25mg tab] 25 mg PO BID 07/13/20 07/13/20 Unknown allopurinoL [Zyloprim] 100 mg PO QDAY 07/13/20 07/13/20 Unknown cloNIDine [Catapres] 0.3 mg PO BID 07/13/20 07/13/20 Unknown Previous Rx's Medication Instructions Recorded Last Taken Type Famotidine [Pepcid] 10 mg PO BID tablet 07/19/20 Unknown Rx Metoprolol [Lopressor TAB] 50 mg PO BID tablet 07/19/20 Unknown Rx NIFEdipine XL [Procardia Xl] 60 mg PO Q12HR tablet 07/19/20 Unknown Rx Valsartan [Diovan] 160 mg PO Q12H tablet 07/19/20 Unknown Rx hydrALAZINE [Apresoline TAB] 50 mg PO Q8HR tablet 07/19/20 Unknown Rx Allergies Allergy/AdvReac Type Severity Reaction Status Date / Time acetaminophen [From Percocet] Allergy Unknown Verified 07/13/20 14:52 oxycodone [From Percocet] Allergy Unknown Verified 07/13/20 14:52 lisinopril AdvReac Unknown Verified 07/13/20 14:53 ED Review of Systems ROS: Stated complaint: BLEEDING FROM DIALYSIS SHANK Other details as noted in HPI Comment: All other systems reviewed and negative Constitutional: denies: chills, fever Respiratory: denies: cough, shortness of breath Cardiovascular: denies: chest pain Gastrointestinal: denies: abdominal pain, nausea ED Past Medical Hx - Past Medical History Previous Medical History?: Yes Hx Hypertension: Yes Hx Diabetes: Yes Hx Deep Vein Thrombosis: Yes Hx Renal Disease: Yes Hx Dementia: Yes Additional medical history: cholangio carcinoma - Surgical History Past Surgical History?: Yes Additional Surgical History: AV fistula left bicep - Social History Smoking Status: Never Smoker - Medications Home Medications: Home Medications Medication Instructions Recorded Confirmed Last Taken Type Aspirin [Adult Aspirin] 81 mg PO DAILY 07/13/20 07/13/20 Unknown History Atorvastatin Calcium [Lipitor] 10 mg PO DAILY 07/13/20 07/13/20 Unknown History Gabapentin [Neurontin] 200 mg PO Q2D 07/13/20 07/13/20 Unknown History Insulin Glargine [Lantus VIAL] 5 unit SUB-Q BID 07/13/20 07/13/20 Unknown History Tamsulosin [Flomax] 0.4 mg PO QDAY 07/13/20 07/13/20 Unknown History Venlafaxine [Effexor 25mg tab] 25 mg PO BID 07/13/20 07/13/20 Unknown History allopurinoL [Zyloprim] 100 mg PO QDAY 07/13/20 07/13/20 Unknown History cloNIDine [Catapres] 0.3 mg PO BID 07/13/20 07/13/20 Unknown History Famotidine [Pepcid] 10 mg PO BID tablet 07/19/20 Unknown Rx Metoprolol [Lopressor TAB] 50 mg PO BID tablet 07/19/20 Unknown Rx NIFEdipine XL [Procardia Xl] 60 mg PO Q12HR tablet 07/19/20 Unknown Rx Valsartan [Diovan] 160 mg PO Q12H tablet 07/19/20 Unknown Rx hydrALAZINE [Apresoline TAB] 50 mg PO Q8HR tablet 07/19/20 Unknown Rx ED Physical Exam - General Limitations: No Limitations General appearance: alert, in no apparent distress - Head Head exam: Present: atraumatic, normocephalic - Eye Eye exam: Present: normal appearance - ENT ENT exam: Present: mucous membranes moist - Neck Neck exam: Present: normal inspection, full ROM - Respiratory Respiratory exam: Present: normal lung sounds bilaterally. Absent: respiratory distress, wheezes, rales, rhonchi - Cardiovascular Cardiovascular Exam: Present: regular rate, normal rhythm, normal heart sounds. Absent: systolic murmur, diastolic murmur, rubs, gallop - GI/Abdominal GI/Abdominal exam: Present: soft, normal bowel sounds. Absent: distended, tenderness, guarding, rebound - Rectal Rectal exam: Present: deferred - Extremities Exam Extremities exam: Present: other (Left bicep AV fistula: Clamp in place with Yves wrap and Kerlix) - Neurological Exam Neurological exam: Present: alert, oriented X3 - Psychiatric Psychiatric exam: Present: normal affect, normal mood - Skin Skin exam: Present: warm, dry, intact, normal color. Absent: rash ED Course Vital Signs 01/13/21 01/13/21 17:12 18:57 Temperature 98.8 F Pulse Rate 88 88 Respiratory 18 Rate Blood Pressure 166/122 235/174 O2 Sat by Pulse 97 Oximetry ED Medical Decision Making - Lab Data Result diagrams: 01/13/21 17:12 01/13/21 17:12 - Medical Decision Making 1. Significant hemorrhage from AV fistula, baseline hemoglobin 12~13, hemoglobin is [address] Virk vascular surgeon recommended DDAVP 20 mcg IV to reverse acquired coagulopathy typical for patients with renal disease, 2. Near syncope due to significant blood loss leading to hypotension patient will need serial H&H's 3. AV fistula malfunction: Dr. Virk will perform fistulogram in the a.m. he also requested patient to be made n.p.o. after midnight for fistulogram to be performed tomorrow., Critical Care Time: Yes Critical care time in (mins) excluding proc time.: 40 Critical care attestation.: If time is entered above; I have spent that time in minutes in the direct care of this critically ill patient, excluding procedure time. 40 minutes of critical care time excluding procedures were used in the care of t he patient. I came immediately to the bedside upon patient's arrival. I obtained history from EMS at the bedside. I discussed treatment plan with the nursing team members. I immediately removed clamp. Patient had discoloration of the arm distal to the clamp. He had severe pain. 2+ radial pulse present. Patient also had tight Yves bandage in place. Patient did not have any immediate bleeding after clamp was removed. I immediately spoke with vascular surgeon in order to obtain treatment recommendations. He recommended 20 mcg of DDAVP. He also inquired as to whether if patient had received heparin during dialysis. I was concerned for patient's hypotension near syncope. I was concerned for rebleeding. I reviewed electronic record. Patient required multiple interventions and reassessments. ED Disposition Clinical Impression: Complication of AV dialysis fistula, Hypotension, Near syncope, End stage renal disease on dialysis, Anemia associated with acute blood loss Disposition: 09 OP ADMIT IP TO THIS HOSP Is pt being admited?: Yes Does the pt Need Aspirin: No Condition: Stable
[2021-01-13 17:34] LABS: Basophils % (Auto) 0.3 % (0.0-1.8); Eosinophils # (Auto) 0.2 K/mm3 (0.0-0.4); Eosinophils % (Auto) 3.5 % (0.0-4.3); Hematocrit 30.9 % (35.5-45.6); Hemoglobin 10.1 gm/dl (11.8-15.2); Lymphocytes # (Auto) 0.8 K/mm3 (1.2-5.4); Lymphocytes % (Auto) 17.4 % (13.4-35.0); Mean Corpuscular HGB Conc 33 % (32-34); Mean Corpuscular Volume 96 fl (84-94); Monocytes # (Auto) 0.5 K/mm3 (0.0-0.8); Monocytes % (Auto) 10.7 % (0.0-7.3); Red Blood Count 3.21 M/mm3 (3.65-5.03); Red Cell Distribution Width 17.2 % (13.2-15.2)
[2021-01-13 17:35] LABS: Platelet Count 251 K/mm3 (140-440)
[2021-01-13 17:37] LABS: INR 0.99 (0.87-1.13)
[2021-01-13 17:38] LABS: Partial Thromboplastin Time 36.5 Sec. (24.2-36.6)
[2021-01-13 17:48] LABS: Calcium 8.9 mg/dL (8.4-10.2)
[2021-01-13] MEDS ORDERED: DESMOPRESSIN ACETATE 20 MCG in SODIUM CHLORIDE 0.9% 50 ML IV ONE (18:00)
[2021-01-13] MEDS ORDERED: MORPHINE 4 MG/1 ML INJ IV ONE (18:53)
[2021-01-13] MEDS ORDERED: ONDANSETRON 4 MG/2 ML INJ IV ONE (18:53)
[2021-01-13] MEDS: HYDROmorphone 1 MG/1 ML INJ IV PRN (21:32)
[2021-01-13] MEDS ORDERED: hydrALAZINE 20 MG/1 ML INJ IV ONE (22:00)
[2021-01-14] MEDS ORDERED: NON-FORMULARY EACH (Gabapentin [Neurontin] 600 MG Tablet) PO SCH (01:15)
--- NOTE | 2021-01-14 01:16 | History and Physical Report ---
History of Present Illness Date of examination: 01/13/21 Date of admission: 01/13/21 19:58 Chief complaint: Bleeding from left arm AV fistula-uncontrolled History of present illness: 75-year-old male with history of end-stage renal disease on hemodialysis on Tuesdays and Saturdays, hypertension and peripheral neuropathy, BPH and gout presents with continuous bleeding from left arm AV fistula. After completing dialysis the leg was removed and copious amount of BPH. Patient was breathing for approximately an hour. Clamp was placed prior to the fire d epartment and the first responders. Initially blood pressure was 170/110 per EMS. Patient had a near syncopal episode with decreased level of consciousness and blood pressure dropped to 90/40 at that time. Patient received IV fluids by EMS. Patient is back to baseline mental status at the time of admission to the emergency room. In the emergency room blood pressure was controlled with a Yves wrap around the AV fistula. Patient being admitted for AV fistulogram and correction of the bleeding site if necessary. Vascular surgery was consulted. Dr. Virk consulted. Patient to be n.p.o. from midnight. - Past Medical History Previous Medical History?: Yes --Hypertension: Yes --Diabetes: Yes --Deep Vein Thrombosis: Yes --Renal Disease: Yes --Dementia: Yes Additional medical history: cholangio carcinoma - Surgical History Past Surgical History?: Yes Additional Surgical History: AV fistula left bicep - Social History Smoking Status: Never Smoker Review of Systems ROS: Continuous left arm AV fistula bleeding Altered sensorium and near syncope after the bleeding episode for 1 hour Constitutional no weight loss or weight gain no fever or chills HEENT no sore throat no post nasal drip no diplopia Neck no neck stiffness no lymph gland enlargement Chest and lungs no shortness of breath cough or wheezing CVS no chest pain no diaphoresis no palpitations GI no nausea no vomiting no diarrhea Genitourinary system no dysuria no flank pain Musculoskeletal system no muscle pains no joint pains [employer] no syncope no seizures Skin no rash no itching Psychiatric no depression no homicidal or suicidal tendencies Hematologic no lymphedema or bruising Endocrine no polydipsia no polyuria no cold intolerance no heat intolerance Medications and Allergies Allergies Allergy/AdvReac Type Severity Reaction Status Date / Time acetaminophen [From Percocet] Allergy Unknown Verified 07/13/20 14:52 oxycodone [From Percocet] Allergy Unknown Verified 07/13/20 14:52 lisinopril AdvReac Unknown Verified 07/13/20 14:53 Home Medications Medication Instructions Recorded Confirmed Last Taken Type Aspirin [Adult Aspirin] 81 mg PO DAILY 07/13/20 07/13/20 Unknown History Atorvastatin Calcium [Lipitor] 10 mg PO DAILY 07/13/20 07/13/20 Unknown History Gabapentin [Neurontin] 200 mg PO Q2D 07/13/20 07/13/20 Unknown History Insulin Glargine [Lantus VIAL] 5 unit SUB-Q BID 07/13/20 07/13/20 Unknown History Tamsulosin [Flomax] 0.4 mg PO QDAY 07/13/20 07/13/20 Unknown History Venlafaxine [Effexor 25mg tab] 25 mg PO BID 07/13/20 07/13/20 Unknown History allopurinoL [Zyloprim] 100 mg PO QDAY 07/13/20 07/13/20 Unknown History cloNIDine [Catapres] 0.3 mg PO BID 07/13/20 07/13/20 Unknown History Famotidine [Pepcid] 10 mg PO BID tablet 07/19/20 Unknown Rx Metoprolol [Lopressor TAB] 50 mg PO BID tablet 07/19/20 Unknown Rx NIFEdipine XL [Procardia Xl] 60 mg PO Q12HR tablet 07/19/20 Unknown Rx Valsartan [Diovan] 160 mg PO Q12H tablet 07/19/20 Unknown Rx hydrALAZINE [Apresoline TAB] 50 mg PO Q8HR tablet 07/19/20 Unknown Rx Active Meds: Active Medications Hydromorphone HCl (Hydromorphone 1 Mg/1 Ml Inj) 0.5 mg IV Q3H PRN PRN Reason: Pain , Severe (7-10) Last Admin: 01/13/21 21:32 Dose: 0.5 mg Documented by: Exam - Constitutional Vitals: Temp Pulse Resp BP Pulse Ox 99.3 F 87 18 180/72 99 01/13/21 23:43 01/14/21 00:19 01/13/21 23:43 01/13/21 23:43 01/13/21 23:43 General appearance: Present: no acute distress, well-nourished - EENT Eyes: Present: PERRL ENT: hearing intact, clear oral mucosa - Neck Neck: Present: supple, normal ROM - Respiratory Respiratory effort: normal Respiratory: bilateral: CTA - Cardiovascular Heart rate: 78 Rhythm: regular Heart Sounds: Present: S1 & S2. Absent: rub, click - Extremities Extremities: no ischemia, pulses symmetrical, No edema Peripheral Pulses: within normal limits - Abdominal General gastrointestinal: Present: soft, non-tender, non-distended, normal bowel sounds Male genitourinary: Present: normal - Integumentary Integumentary: Present: clear, warm, dry - Musculoskeletal Musculoskeletal: gait normal, strength equal bilaterally - Psychiatric Psychiatric: appropriate mood/affect, intact judgment & insight - Neurologic Neurologic: CNII-XII intact, moves all extremities - Allied Health Allied health notes reviewed: nursing, case management HEART Score - HEART Score History: Slightly suspicious Age: > 65 Risk factors: > 3 risk factors or hx of atherosclerotic disease Troponin: < normal limit - Critical Actions Critical Actions: 0-3 pts:0.9-1.7%risk of adverse cardiac event.Candidate for discharge Results - Labs CBC & Chem 7: 01/13/21 17:12 01/13/21 17:12 Labs: Laboratory Last Values WBC 4.5 K/mm3 (4.5-11.0) 01/13/21 17:12 RBC 3.21 M/mm3 (3.65-5.03) L 01/13/21 17:12 Hgb 10.1 gm/dl (11.8-15.2) L 01/13/21 17:12 Hct 30.9 % (35.5-45.6) L 01/13/21 17:12 MCV 96 fl (84-94) H 01/13/21 17:12 MCH 31 pg (28-32) 01/13/21 17:12 MCHC 33 % (32-34) 01/13/21 17:12 RDW 17.2 % (13.2-15.2) H 01/13/21 17:12 Plt Count 251 K/mm3 (140-440) 01/13/21 17:12 Lymph % (Auto) 17.4 % (13.4-35.0) 01/13/21 17:12 [place] % (Auto) 10.7 % (0.0-7.3) H 01/13/21 17:12 Eos % (Auto) 3.5 % (0.0-4.3) 01/13/21 17:12 Baso % (Auto) 0.3 % (0.0-1.8) 01/13/21 17:12 Lymph # (Auto) 0.8 K/mm3 (1.2-5.4) L 01/13/21 17:12 [place] # (Auto) 0.5 K/mm3 (0.0-0.8) 01/13/21 17:12 Eos # (Auto) 0.2 K/mm3 (0.0-0.4) 01/13/21 17:12 Baso # (Auto) 0.0 K/mm3 (0.0-0.1) 01/13/21 17:12 Seg Neutrophils % 68.1 % (40.0-70.0) 01/13/21 17:12 Seg Neutrophils # 3.0 K/mm3 (1.8-7.7) 01/13/21 17:12 PT 12.9 Sec. (12.2-14.9) 01/13/21 17:12 INR 0.99 (0.87-1.13) 01/13/21 17:12 APTT 36.5 Sec. (24.2-36.6) 01/13/21 17:12 Sodium 141 mmol/L (137-145) 01/13/21 17:12 Potassium 3.5 mmol/L (3.6-5.0) L 01/13/21 17:12 Chloride 98.1 mmol/L (98-107) 01/13/21 17:12 Carbon Dioxide 27 mmol/L (22-30) 01/13/21 17:12 Anion Gap 19 mmol/L 01/13/21 17:12 BUN 15 mg/dL (9-20) 01/13/21 17:12 Creatinine 3.0 mg/dL (0.8-1.3) H 01/13/21 17:12 Estimated GFR 21 ml/min 01/13/21 17:12 BUN/Creatinine Ratio 5 % 01/13/21 17:12 Glucose 220 mg/dL (75-100) H 01/13/21 17:12 Calcium 8.9 mg/dL (8.4-10.2) 01/13/21 17:12 Short CBC 01/13/21 Range/Units 17:12 WBC 4.5 (4.5-11.0) K/mm3 Hgb 10.1 L (11.8-15.2) gm/dl Hct 30.9 L (35.5-45.6) % Plt Count 251 (140-440) K/mm3 [facility] 01/13/21 17:12 Sodium 141 Potassium 3.5 L Chloride 98.1 Carbon Dioxide 27 BUN 15 Creatinine 3.0 H Glucose 220 H Calcium 8.9 - Imaging and Cardiology EKG: report reviewed Assessment and Plan Advance Directives: Yes - Patient Problems (1) Hypertensive emergency Current Visit: Yes Status: Acute Plan to address problem: Home blood pressure medications restarted IV hydralazine 10 mg every 3 hours as needed for blood pressure more than 160/100 (2) Anemia associated with acute blood loss Current Visit: Yes Status: Acute Plan to address problem: Monitor hemoglobin and hematocrit Transfuse if hemoglobin less than 7.5 because of acute blood loss Bleeding controlled (3) Complication of AV dialysis fistula Current Visit: Yes Status: Acute Qualifiers: Encounter type: initial encounter Qualified Code(s): T82.9XXA - Unspecified complication of cardiac and vascular prosthetic device, implant and graft, initial encounter Plan to address problem: For AV fistulogram tomorrow morning N.p.o. from midnight (4) End stage renal disease on dialysis Current Visit: Yes Status: Chronic Plan to address problem: Nephrology consulted for hemodialysis if necessary Patient had full hemodialysis today (5) Insulin dependent diabetes mellitus Current Visit: Yes Status: Chronic Plan to address problem: Continue home insulin Coverage with Humalog as necessary Check hemoglobin A1c (6) Hyperlipidemia Current Visit: Yes Status: Chronic Qualifiers: Hyperlipidemia type: mixed hyperlipidemia Qualified Code(s): E78.2 - Mixed hyperlipidemia Plan to address problem: Continue statins (7) DVT prophylaxis Current Visit: No Status: Acute Plan to address problem: SCDs and GI prophylaxis for now Heparin later after AV fistulogram and intervention
[2021-01-14] MEDS: hydrALAZINE 25 MG TAB PO SCH ×3 (03:01→21:00)
[2021-01-14] MEDS: cloNIDine 0.1 MG TAB PO SCH ×3 (03:01→23:03)
[2021-01-14] MEDS ORDERED: NON-FORMULARY EACH (Atorvastatin Calcium [Lipitor] 80 MG Tablet) PO SCH (10:00)
[2021-01-14] MEDS: FAMOTIDINE 10 MG TAB PO SCH ×2 (10:26→22:51)
[2021-01-14] MEDS: TAMSULOSIN 0.4 MG CAP PO SCH (10:27)
[2021-01-14] MEDS: VALSARTAN 160MG TAB PO SCH ×2 (10:27→23:02)
[2021-01-14] MEDS: VENLAFAXINE 25 MG TAB PO SCH ×2 (10:28→22:51)
[2021-01-14] MEDS: METOPROLOL TARTRATE 50 MG TAB PO SCH ×2 (10:28→23:03)
[2021-01-14] MEDS: allopurinoL 100 MG TAB PO SCH (10:28)
[2021-01-14] MEDS: GABAPENTIN 100 MG CAP PO SCH (10:29)
[2021-01-14] MEDS: NIFEdipine XL 60 MG TAB PO SCH ×2 (10:29→22:51)
[2021-01-14] MEDS: INSULIN LISPRO 100 UNIT/ML SUB-Q SCH ×4 (10:30→22:51)
[2021-01-14] MEDS: INSULIN GLARGINE 100 UNITS/ML SUB-Q SCH ×2 (10:40→22:51)
--- NOTE | 2021-01-14 11:57 | Progress Note ---
Assessment and Plan Assessment and plan: (1) Hypertensive emergency Current Visit: Yes Status: Acute Plan to address problem: Home blood pressure medications restarted IV hydralazine 10 mg every 3 hours as needed for blood pressure more than 160/100 (2) Anemia associated with acute blood loss Current Visit: Yes Status: Acute Plan to address problem: Monitor hemoglobin and hematocrit Transfuse if hemoglobin less than 7.5 because of acute blood loss Bleeding controlled (3) Complication of AV dialysis fistula Current Visit: Yes Status: Acute Qualifiers: Encounter type: initial encounter Qualified Code(s): T82.9XXA - Unspecified complication of cardiac and vascular prosthetic device, implant and graft, initial encounter Plan to address problem: For AV fistulogram by IR (4) End stage renal disease on dialysis Current Visit: Yes Status: Chronic Plan to address problem: Nephrology consulted for hemodialysis (5) Insulin dependent diabetes mellitus Current Visit: Yes Status: Chronic Plan to address problem: Continue home insulin Coverage with Humalog as necessary Check hemoglobin A1c (6) Hyperlipidemia Current Visit: Yes Status: Chronic Qualifiers: Hyperlipidemia type: mixed hyperlipidemia Qualified Code(s): E78.2 - Mixed hyperlipidemia Plan to address problem: Continue statins (7) DVT prophylaxis Current Visit: No Status: Acute Plan to address problem: SCDs and GI prophylaxis for now Heparin later after AV fistulogram and intervention History Interval history: 01/14. Patient to have a fistulogram today. Plan to DC after fistulogram today if cleared by IR Hospitalist Physical - Physical exam Narrative exam: VITAL SIGNS: Reviewed. GENERAL: Awake HEAD: No signs of head trauma. EYES: Pupils are equal. Extraocular motions intact. MOUTH: Oropharynx is normal. NECK: No adenopathy, no JVD. CHEST: Chest with diminished breath sounds bilaterally. No wheezes, rales, or rhonchi. CARDIAC: normal S1 and S2, without murmurs, gallops, or rubs. ABDOMEN: Soft, non tender and non distended. No rebound or guarding, and no masses palpated. Bowel Sounds normal. MUSCULOSKELETAL: No edema NEUROLOGIC EXAM: Alert and oriented x3. No focal neurologic deficits SKIN: No obvious lesions - Constitutional Vitals: Temp Pulse Resp BP Pulse Ox 98.5 F 83 18 188/76 98 01/14/21 08:22 01/14/21 10:28 01/14/21 08:22 01/14/21 10:28 01/14/21 08:22 HEART Score - HEART Score Age: > 65 Risk factors: > 3 risk factors or hx of atherosclerotic disease Troponin: < normal limit - Critical Actions Critical Actions: 0-3 pts:0.9-1.7%risk of adverse cardiac event.Candidate for discharge Results - Labs CBC & Chem 7: 01/13/21 17:12 01/13/21 17:12 Labs: Laboratory Last Values WBC 4.5 K/mm3 (4.5-11.0) 01/13/21 17:12 RBC 3.21 M/mm3 (3.65-5.03) L 01/13/21 17:12 Hgb 10.1 gm/dl (11.8-15.2) L 01/13/21 17:12 Hct 30.9 % (35.5-45.6) L 01/13/21 17:12 MCV 96 fl (84-94) H 01/13/21 17:12 MCH 31 pg (28-32) 01/13/21 17:12 MCHC 33 % (32-34) 01/13/21 17:12 RDW 17.2 % (13.2-15.2) H 01/13/21 17:12 Plt Count 251 K/mm3 (140-440) 01/13/21 17:12 Lymph % (Auto) 17.4 % (13.4-35.0) 01/13/21 17:12 [place] % (Auto) 10.7 % (0.0-7.3) H 01/13/21 17:12 Eos % (Auto) 3.5 % (0.0-4.3) 01/13/21 17:12 Baso % (Auto) 0.3 % (0.0-1.8) 01/13/21 17:12 Lymph # (Auto) 0.8 K/mm3 (1.2-5.4) L 01/13/21 17:12 [place] # (Auto) 0.5 K/mm3 (0.0-0.8) 01/13/21 17:12 Eos # (Auto) 0.2 K/mm3 (0.0-0.4) 01/13/21 17:12 Baso # (Auto) 0.0 K/mm3 (0.0-0.1) 01/13/21 17:12 Seg Neutrophils % 68.1 % (40.0-70.0) 01/13/21 17:12 Seg Neutrophils # 3.0 K/mm3 (1.8-7.7) 01/13/21 17:12 PT 12.9 Sec. (12.2-14.9) 01/13/21 17:12 INR 0.99 (0.87-1.13) 01/13/21 17:12 APTT 36.5 Sec. (24.2-36.6) 01/13/21 17:12 Sodium 141 mmol/L (137-145) 01/13/21 17:12 Potassium 3.5 mmol/L (3.6-5.0) L 01/13/21 17:12 Chloride 98.1 mmol/L (98-107) 01/13/21 17:12 Carbon Dioxide 27 mmol/L (22-30) 01/13/21 17:12 Anion Gap 19 mmol/L 01/13/21 17:12 BUN 15 mg/dL (9-20) 01/13/21 17:12 Creatinine 3.0 mg/dL (0.8-1.3) H 01/13/21 17:12 Estimated GFR 21 ml/min 01/13/21 17:12 BUN/Creatinine Ratio 5 % 01/13/21 17:12 Glucose 220 mg/dL (75-100) H 01/13/21 17:12 POC Glucose 125 mg/dL (70-105) H 01/14/21 09:03 Calcium 8.9 mg/dL (8.4-10.2) 01/13/21 17:12 Active Medications - Current Medications Current Medications: Generic Name Dose Route Start Last Admin Trade Name Freq PRN Reason Stop Dose Admin Allopurinol 100 mg 01/14/21 10:00 01/14/21 10:28 Allopurinol 100 Mg Tab PO 100 mg QDAY TAMAR Administration Aspirin 81 mg 01/14/21 10:00 Aspirin Ec 81 Mg Tab PO DAILY TAMAR Atorvastatin Calcium 10 mg 01/14/21 10:00 01/14/21 10:30 Atorvastatin 10 Mg Tab PO 10 mg DAILY TAMAR Administration Clonidine HCl 0.3 mg 01/14/21 02:00 01/14/21 10:26 Clonidine 0.1 Mg Tab PO 0.3 mg BID TAMAR Administration Famotidine 10 mg 01/14/21 10:00 01/14/21 10:26 Famotidine 10 Mg Tab PO 10 mg BID TAMAR Administration Gabapentin 200 mg 01/14/21 10:00 01/14/21 10:29 Gabapentin 100 Mg Cap PO 200 mg Q2D TAMAR Administration Hydralazine HCl 50 mg 01/14/21 02:00 01/14/21 03:01 Hydralazine 25 Mg Tab PO 50 mg Q8H TAMAR Administration Hydromorphone HCl 0.5 mg 01/13/21 21:23 01/13/21 21:32 Hydromorphone 1 Mg/1 Ml Inj IV 0.5 mg Q3H PRN Administration Pain , Severe (7-10) Insulin Glargine 5 units 01/14/21 10:00 01/14/21 10:40 Insulin Glargine 100 Units/Ml SUB-Q Not Given BID TAMAR Insulin Human Lispro 0 unit 01/14/21 07:30 01/14/21 10:30 Insulin Lispro 100 Unit/Ml SUB-Q Not Given [facility] Protocol Metoprolol Tartrate 50 mg 01/14/21 10:00 01/14/21 10:28 Metoprolol Tartrate 50 Mg Tab PO 50 mg BID TAMAR Administration Nifedipine 60 mg 01/14/21 10:00 01/14/21 10:29 Nifedipine Xl 60 Mg Tab PO 60 mg Q12HR TAMAR Administration Tamsulosin HCl 0.4 mg 01/14/21 10:00 01/14/21 10:27 Tamsulosin 0.4 Mg Cap PO 0.4 mg QDAY TAMAR Administration Valsartan 160 mg 01/14/21 10:00 01/14/21 10:27 Valsartan 160mg Tab PO 160 mg Q12HR TAMAR Administration Venlafaxine HCl 25 mg 01/14/21 10:00 01/14/21 10:28 Venlafaxine 25 Mg Tab PO 25 mg BID TAMAR Administration
[2021-01-14] MEDS ORDERED: LIDOCAINE (2%) 20 MG/1 ML VIAL 20 ML MDV INFILTRATI ONE (12:13)
[2021-01-14] MEDS ORDERED: HEPARIN/NS 5000 UNIT/500ML 500 ML IR ONE ×3 (12:13→13:36)
[2021-01-14] MEDS ORDERED: SODIUM CHLORIDE 0.9% 1000 ML 1,000 ML ONE (12:15)
--- NOTE | 2021-01-14 12:41 | Consultation ---
History of Present Illness - Reason for Consult Consult date: 01/14/21 Complications of Dialysis Access Requesting physician: DOREEN ZELAYA - History of Present Illness The patient is a 75-year-old male with a history of end-stage renal disease and dementia who was brought to the emergency department with bleeding from his left arm arteriovenous graft. Per his he had recently been at [facility] secondary to complications with accessing and adequately dialyzing him to his left arm AV graft. It was thought that they may have to abandon his graft and p lace a permacath however they were able to adequately dialyze him through the graft at the [facility] and then discharged him Sunday back to his [facility]. Yesterday after dialysis they were unable to stop his bleeding so he was brought by EMS with a clamp on his graft. Upon evaluation in the emergency department he had continued bleeding with removal of the tourniquet and a pressure bandage was placed. Today upon removal of the pressure bandage the graft was thrombosed. The patient is demented and has intermittent confusion but he has no current complaints. Past History Past Medical History: diabetes, ESRD, hypertension, hyperlipidemia, other ([place]ola ngiocarcinoma, dementia, PTSD, benign prostatic hypertrophy) Past Surgical History: cholecystectomy, Other (Creation of left arm arteriovenous graft) Social history: Medications and Allergies Allergies Allergy/AdvReac Type Severity Reaction Status Date / Time acetaminophen [From Percocet] Allergy Unknown Verified 07/13/20 14:52 oxycodone [From Percocet] Allergy Unknown Verified 07/13/20 14:52 lisinopril AdvReac Unknown Verified 07/13/20 14:53 Home Medications Medication Instructions Recorded Confirmed Last Taken Type Aspirin [Adult Aspirin] 81 mg PO DAILY 07/13/20 07/13/20 Unknown History Atorvastatin Calcium [Lipitor] 10 mg PO DAILY 07/13/20 07/13/20 Unknown History Gabapentin [Neurontin] 200 mg PO Q2D 07/13/20 07/13/20 Unknown History Insulin Glargine [Lantus VIAL] 5 unit SUB-Q BID 07/13/20 07/13/20 Unknown History Tamsulosin [Flomax] 0.4 mg PO QDAY 07/13/20 07/13/20 Unknown History Venlafaxine [Effexor 25mg tab] 25 mg PO BID 07/13/20 07/13/20 Unknown History allopurinoL [Zyloprim] 100 mg PO QDAY 07/13/20 07/13/20 Unknown History cloNIDine [Catapres] 0.3 mg PO BID 07/13/20 07/13/20 Unknown History Famotidine [Pepcid] 10 mg PO BID tablet 07/19/20 Unknown Rx Metoprolol [Lopressor TAB] 50 mg PO BID tablet 07/19/20 Unknown Rx NIFEdipine XL [Procardia Xl] 60 mg PO Q12HR tablet 07/19/20 Unknown Rx Valsartan [Diovan] 160 mg PO Q12H tablet 07/19/20 Unknown Rx hydrALAZINE [Apresoline TAB] 50 mg PO Q8HR tablet 07/19/20 Unknown Rx Active Meds: Active Medications Allopurinol (Allopurinol 100 Mg Tab) 100 mg PO QDAY [facility] Last Admin: 01/14/21 10:28 Dose: 100 mg Documented by: Aspirin (Aspirin Ec 81 Mg Tab) 81 mg PO DAILY [facility] Atorvastatin Calcium (Atorvastatin 10 Mg Tab) 10 mg PO DAILY [facility] Last Admin: 01/14/21 10:30 Dose: 10 mg Documented by: Clonidine HCl (Clonidine 0.1 Mg Tab) 0.3 mg PO BID [facility] Last Admin: 01/14/21 10:26 Dose: 0.3 mg Documented by: Famotidine (Famotidine 10 Mg Tab) 10 mg PO BID [facility] Last Admin: 01/14/21 10:26 Dose: 10 mg Documented by: Gabapentin (Gabapentin 100 Mg Cap) 200 mg PO Q2D [facility] Last Admin: 01/14/21 10:29 Dose: 200 mg Documented by: Hydralazine HCl (Hydralazine 25 Mg Tab) 50 mg PO Q8H [facility] Last Admin: 01/14/21 03:01 Dose: 50 mg Documented by: Hydromorphone HCl (Hydromorphone 1 Mg/1 Ml Inj) 0.5 mg IV Q3H PRN PRN Reason: Pain , Severe (7-10) Last Admin: 01/13/21 21:32 Dose: 0.5 mg Documented by: Insulin Glargine (Insulin Glargine 100 Units/Ml) 5 units SUB-Q BID [facility] Last Admin: 01/14/21 10:40 Dose: Not Given Documented by: Insulin Human Lispro (Insulin Lispro 100 Unit/Ml) 0 unit SUB-Q ACHS [facility]; Protocol Last Admin: 01/14/21 10:30 Dose: Not Given Documented by: Metoprolol Tartrate (Metoprolol Tartrate 50 Mg Tab) 50 mg PO BID [facility] Last Admin: 01/14/21 10:28 Dose: 50 mg Documented by: Nifedipine (Nifedipine Xl 60 Mg Tab) 60 mg PO Q12HR [facility] Last Admin: 01/14/21 10:29 Dose: 60 mg Documented by: Tamsulosin HCl (Tamsulosin 0.4 Mg Cap) 0.4 mg PO QDAY [facility] Last Admin: 01/14/21 10:27 Dose: 0.4 mg Documented by: Valsartan (Valsartan 160mg Tab) 160 mg PO Q12HR [facility] Last Admin: 01/14/21 10:27 Dose: 160 mg Documented by: Venlafaxine HCl (Venlafaxine 25 Mg Tab) 25 mg PO BID [facility] Last Admin: 01/14/21 10:28 Dose: 25 mg Documented by: Review of Systems All systems: negative Exam - Constitutional Vitals: Temp Pulse Resp BP Pulse Ox 98.5 F 83 18 188/76 98 01/14/21 08:22 01/14/21 10:28 01/14/21 08:22 01/14/21 10:28 01/14/21 08:22 General appearance: Present: no acute distress - Neck Neck: Present: supple - Respiratory Respiratory effort: normal - Cardiovascular Rhythm: regular - Extremities Extremities: abnormal (Left arm AV graft without pulse or thrill, moderate pseudoaneurysm in the mid graft without evidence of ulceration) - Abdominal General gastrointestinal: Present: soft Results - Labs CBC & Chem 7: 01/13/21 17:12 01/13/21 17:12 Labs: Abnormal lab results 01/13/21 01/13/21 01/14/21 Range/Units 17:12 17:12 09:03 RBC 3.21 L (3.65-5.03) M/mm3 Hgb 10.1 L (11.8-15.2) gm/dl Hct 30.9 L (35.5-45.6) % MCV 96 H (84-94) fl RDW 17.2 H (13.2-15.2) % [place] % (Auto) 10.7 H (0.0-7.3) % Lymph # (Auto) 0.8 L (1.2-5.4) K/mm3 Potassium 3.5 L (3.6-5.0) mmol/L Creatinine 3.0 H (0.8-1.3) mg/dL Glucose 220 H (75-100) mg/dL POC Glucose 125 H (70-105) mg/dL Assessment and Plan The patient is a 75-year-old male with a history of end-stage renal disease and dementia. He presented with bleeding from his left arm AV graft. He is in need of a diagnostic fistulogram with possible percutaneous mechanical thrombectomy. I discussed the risk and benefits with his and the possible need for a permacath if I am unable to restore flow. The patient's expressed understanding and agrees with the plan.
[2021-01-14] MEDS: MIDAZOLAM 2 MG/2 ML INJ ONE ×2 (13:01→13:51)
[2021-01-14] MEDS: fentaNYL 100 MCG/2 ML INJ ONE ×2 (13:01→13:24)
[2021-01-14] MEDS ORDERED: HEPARIN 10,000 UNITS/10 ML VIAL ONE (13:06)
[2021-01-14] MEDS ORDERED: ALTEPLASE 2 MG INJ ONE (13:16)
--- NOTE | 2021-01-14 14:57 | Operative Report ---
Operative Report Operative Report: Date of Procedure: 01/14/2021 Pre-operative Diagnosis: Complications of Dialysis Access Post-operative Diagnosis: Same Procedure(s): 1. Access Left Arm AV Graft with 7 Niuean Sheath Venous 2. Access Left Arm AV Graft with 6 Niuean Sheath Arterial 3. Diagnostic Fistulogram with Central Venogram 4. Angioplasty and Stent of Left Arm AV Graft with 8 x 40 Challis Balloon and 8 x 5 cm Viabahn Stent Graft 5. Percutaneous Pharmacomechanical Thrombectomy of Left Arm AV Graft with 6 mg of TPA, AngioJet Catheter, Trertolla Device 6. Catheter in Left Brachial Artery 7. Diagnostic Left Upper Extremity Angiogram 8. Radiologic Supervision with Interpretation 9. Open Decompression of Left Arm Arteriovenous Graft Pseudoaneurysm 10. Monitored Moderate Sedation (Total Anesthesia Time: 92 Minutes) Surgeon: Diomedes Marino M.D. Cook Chief: Soniya Anesthesia: Local/Monitored Moderate Sedation Total Anesthesia Time: 92 Minutes EBL: Minimal Counts: Correct Complications: None Condition: Stable Specimen: Thrombus from left AV graft pseudoaneurysm was discarded. Indication: The patient is a 75-year-old male with a history of end-stage renal disease who presented with bleeding from his left arm arteriovenous graft. A tourniquet was placed on the access to control the bleeding and this resulted in thrombosis of the graft. He is in need of a diagnostic fistulogram with possible intervention. Due to dementia his was given the risk, benefits, and alternative procedures and she consented to the procedure. Angiographic Findings: The diagnostic fistulogram revealed thrombosis of the entire graft. There was a large pseudoaneurysm that originated near the arterial inflow however it extended over the cannulation zone of the graft. There was stenosis throughout the graft ranging from 50 to 75%. There was a stent within the axillary vein with approximately 85% stenosis. There was thrombus extending through the stent and into the axillary vein. The central venous system was patent without evidence of flow-limiting stenosis. The brachial artery was patent without evidence of flow-limiting stenosis. The arterial anastomosis was patent without significant flow-limiting stenosis. After intervention the graft was patent with less than 15% residual stenosis. There was no flow noted within the pseud oaneurysm. There was no evidence of distal emboli at the completion of the case. The pseudoaneurysm was decompressed and no longer overlying the graft and the graft had a strongly palpable thrill. Description of Procedure: The patient was brought to the Associate Financial Analyst and laid in supine position. After timeout was performed he was sedated and his left arm was prepped and draped in normal sterile fashion. Lidocaine was used to anesthetize the skin and soft tissue overlying the graft, near the arterial inflow, and a 21-gauge micropuncture needle was used to access the graft towards the venous outflow. A 0.018 micropuncture wire was advanced to the graft and after removing the needle a 7 Niuean sheath was placed by Seldinger technique. A diagnostic fistulogram was performed with the previously described findings. I was unable to pass a catheter and wire through the pseudoaneurysm and into the venous outflow of the graft. I used lidocaine to anesthetize the skin and soft tissue overlying the g raft and then used a 21-gauge micropuncture needle to access the graft towards the arterial inflow. I advanced a 0.018 micropuncture wire into the graft and after removing the needle placed a 6 Niuean sheath by Seldinger technique. I advanced a vertebral catheter and Bentson wire into the arterial inflow of the graft and then was able to cannulate the 7 Niuean sheath. Once I cannulated the 7 Niuean sheath with a Bentson wire I advanced a Bentson wire until it was in the hope of the sheath. I removed the 7 Niuean sheath and then exchanged for a 7 Niuean 11 cm sheath which I advanced into the venous outflow of the graft. I then advanced a vertebral catheter and Glidewire through the remainder of the graft and into the central venous system and perform a central venogram with the previously described findings. I slowly pulled the catheter back and perform serial venograms with the previously described findings. I then injected approximately 2 mg of TPA in the axillary vein and then 4 mg of TPA within the graft. I allowed this to dwell for approximately 5 minutes and then I used the AngioJet catheter to perform percutaneous mechanical thrombectomy of the graft as well as the axillary vein. There was residual thrombus within the axillary vein as well as the graft so I used the Trerotola device to morcellate that thrombus and then I was able to aspirate it through the 7 Niuean as well as the 6 Niuean sheath. This revealed the areas of stenosis so I used an 8 x 40 Challis Balloon to perform angioplasty of the areas with a result of less than 15% residual stenosis. I then advanced a vertebral catheter and Glidewire through the 6 Niuean sheath and into the proximal brachial artery and performed a diagnostic angiogram with the previously described findings. I performed angioplasty of the arterial inflow of the graft with the 8 x 40 Challis Balloon with a result of less than 15% residual stenosis. I then took multiple views of the graft and was able to identify the origin of the pseudoaneurysm which despite having pulsatility that overlie the cannulation zone of the graft, originated near the arterial inflow of the graft. I advanced a V 18 wire into the proximal brachial artery and then exchanged my 6 Niuean sheath for a 7 Niuean sheath. I then advanced an 8 x 5 cm Viabahn Stent Graft across the origin of the pseudoaneurysm and deployed it. I readvanced the catheter into the brachial artery and performed a final angiogram which revealed no evidence of distal emboli, minimal residual thrombus within the graft, less than 15% residual stenosis throughout the graft, and no flow noted within the pseudoaneurysm. At this point I removed all catheters and wires and each entry site was then closed with 4-0 Vicryl in pursestring fashion. I then anesthetized the skin and soft tissue on the lateral aspect of the pseudoaneurysm and made a small incision using an 11 blade. I applied pressure to the pseudoaneurysm which decompressed a significant amount of chronic thrombus from the pseudoaneurysm. Once the pseudoaneurysm had been adequately decompressed I closed the soft tissue using 3-0 Vicryl in interrupted fashion the deep dermal layer and closed the skin using Dermabond. The patient tolerated the procedure well. All sponge, needle, and instrument counts were correct. The patient was taken back to his room in stable condition.
[2021-01-14] MEDS: ASPIRIN EC 81 MG TAB PO SCH (15:25)
[2021-01-15] MEDS: hydrALAZINE 25 MG TAB PO SCH ×2 (03:30→11:00)
[2021-01-15] MEDS: INSULIN LISPRO 100 UNIT/ML SUB-Q SCH ×4 (08:00→21:18)
--- NOTE | 2021-01-15 09:25 | Discharge Summary ---
Providers - Providers Date of Admission: 01/13/21 19:58 Date of discharge: 01/16/21 Attending physician: ANGELIQUE PAULINO 01/13/21 17:14 Consult to Physician [CONS] Stat Comment: Consulting Provider: CHRISTIANO ZAZUETA Physician Instructions: Reason For Exam: Bleeding from AV fistula, hypotension Primary care physician: SOILS TECHNICIAN Hospitalization Condition: Stable Hospital course: 75-year-old male with history of end-stage renal disease on hemodialysis on Tuesdays and Saturdays, hypertension and peripheral neuropathy, BPH and gout presents with continuous bleeding from left arm AV fistula. After completing dialysis the leg was removed and copious amount of BPH. Patient was breathing for approximately an hour. Clamp was placed prior to the fire department and the first responders. Initially blood pressure was 170/110 per EMS. Patient had a near syncopal episode with decreased level of consciousness and blood pressure dropped to 90/40 at that time. Patient received IV fluids by EMS. Patient is back to baseline mental status at the time of admission to the emergency room. In the emergency room blood pressure was controlled with a Yves wrap around the AV fistula. Patient being admitted for AV fistulogram and correction of the bleeding site if necessary. Vascular surgery was consulted. Patient was admitted and had fistulogram with angioplasty with stent placement of AVF. He had HD and was discharged. Facility coul;d not be contacted on 01/15 so stayed overnight. He will be discharged today. He agrees with plan. Disposition: DC-01 TO HOME OR SELFCARE Final Discharge Diagnosis (Prints w/discharge instructions): AVF failure Time spent for discharge: 25 mins - Discharge Diagnoses (1) Complication of AV dialysis fistula Status: Acute Qualifiers: Encounter type: initial encounter Qualified Code(s): T82.9XXA - Unspecified complication of cardiac and vascular prosthetic device, implant and graft, i nitial encounter Core Measure Documentation - Palliative Care Palliative Care/ Comfort Measures: Not Applicable - Core Measures Any of the following diagnoses?: none Exam - Physical Exam Narrative exam: VITAL SIGNS: Reviewed. GENERAL: Awake HEAD: No signs of head trauma. EYES: Pupils are equal. Extraocular motions intact. MOUTH: Oropharynx is normal. NECK: No adenopathy, no JVD. CHEST: Chest with diminished breath sounds bilaterally. No wheezes, rales, or rhonchi. CARDIAC: normal S1 and S2, without murmurs, gallops, or rubs. ABDOMEN: Soft, non tender and non distended. No rebound or guarding, and no masses palpated. Bowel Sounds normal. MUSCULOSKELETAL: No edema NEUROLOGIC EXAM: Alert and oriented x3. No focal neurologic deficits SKIN: No obvious lesions - Constitutional Vitals: Temp Pulse Resp BP Pulse Ox 98.2 F 65 18 98/48 99 01/15/21 07:34 01/15/21 07:34 01/15/21 07:34 01/15/21 07:34 01/15/21 07:34 Plan Additional Instructions: Continue HD as scheduled Follow up with: PRIMARY CAREMD [Primary Care Provider] - 7 Days
[2021-01-15] MEDS: INSULIN GLARGINE 100 UNITS/ML SUB-Q SCH ×2 (10:57→21:18)
[2021-01-15] MEDS: NIFEdipine XL 60 MG TAB PO SCH ×2 (10:58→21:19)
[2021-01-15] MEDS: allopurinoL 100 MG TAB PO SCH (10:58)
[2021-01-15] MEDS: ASPIRIN EC 81 MG TAB PO SCH (10:58)
[2021-01-15] MEDS: VALSARTAN 160MG TAB PO SCH ×2 (10:59→23:58)
[2021-01-15] MEDS: METOPROLOL TARTRATE 50 MG TAB PO SCH ×2 (10:59→21:20)
[2021-01-15] MEDS: cloNIDine 0.1 MG TAB PO SCH ×2 (10:59→23:58)
[2021-01-15] MEDS: FAMOTIDINE 10 MG TAB PO SCH ×2 (10:59→21:18)
[2021-01-15] MEDS: VENLAFAXINE 25 MG TAB PO SCH ×2 (11:02→21:18)
[2021-01-15] MEDS: TAMSULOSIN 0.4 MG CAP PO SCH (11:02)
[2021-01-15] MEDS: MUPIROCIN 2% OINT 22 GM NS SCH (21:21)
[2021-01-16] MEDS: hydrALAZINE 25 MG TAB PO SCH ×3 (02:40→17:19)
[2021-01-16] MEDS: INSULIN GLARGINE 100 UNITS/ML SUB-Q SCH ×2 (08:45→22:26)
[2021-01-16] MEDS: INSULIN LISPRO 100 UNIT/ML SUB-Q SCH ×4 (08:50→22:25)
[2021-01-16] MEDS: allopurinoL 100 MG TAB PO SCH (10:12)
[2021-01-16] MEDS: GABAPENTIN 100 MG CAP PO SCH (10:12)
[2021-01-16] MEDS: FAMOTIDINE 10 MG TAB PO SCH ×2 (10:12→22:25)
[2021-01-16] MEDS: METOPROLOL TARTRATE 50 MG TAB PO SCH ×2 (10:13→22:24)
[2021-01-16] MEDS: VALSARTAN 160MG TAB PO SCH ×2 (10:13→22:24)
[2021-01-16] MEDS: ASPIRIN EC 81 MG TAB PO SCH (10:13)
[2021-01-16] MEDS: NIFEdipine XL 60 MG TAB PO SCH ×2 (10:13→22:25)
[2021-01-16] MEDS: cloNIDine 0.1 MG TAB PO SCH ×2 (10:13→22:23)
[2021-01-16] MEDS: TAMSULOSIN 0.4 MG CAP PO SCH (10:13)
[2021-01-16] MEDS: MUPIROCIN 2% OINT 22 GM NS SCH ×2 (10:14→22:34)
[2021-01-16] MEDS: VENLAFAXINE 25 MG TAB PO SCH ×2 (10:14→22:23)
--- NOTE | 2021-01-16 10:31 | Progress Note ---
Assessment and Plan Assessment and plan: (1) Hypertensive emergency Current Visit: Yes Status: Acute Plan to address problem: Resolved Continue BP medications (2) Anemia associated with acute blood loss Current Visit: Yes Status: Acute Plan to address problem: Monitor hemoglobin and hematocrit Transfuse if hemoglobin less than 7.5 because of acute blood loss Bleeding controlled (3) Complication of AV dialysis fistula Current Visit: Yes Status: Acute Qualifiers: Encounter type: initial encounter Qualified Code(s): T82.9XXA - Unspecified complication of cardiac and vascular prosthetic device, implant and graft, initial encounter Plan to address problem: S/p fistulogram and angioplasty by IR (4) End stage renal disease on dialysis Current Visit: Yes Status: Chronic Plan to address problem: HD as scheduled (5) Insulin dependent diabetes mellitus Current Visit: Yes Status: Chronic Plan to address problem: Continue home insulin Coverage with Humalog as necessary Check hemoglobin A1c (6) Hyperlipidemia Current Visit: Yes Status: Chronic Qualifiers: Hyperlipidemia type: mixed hyperlipidemia Qualified Code(s): E78.2 - Mixed hyperlipidemia Plan to address problem: Continue statins (7) DVT prophylaxis Current Visit: No Status: Acute Plan to address problem: SCDs and GI prophylaxis for now History Interval history: 01/14. Patient to have a fistulogram today. Plan to DC after fistulogram today if cleared by IR 01/15. Fistulogram placed. Had HD. DCed Hospitalist Physical - Physical exam Narrative exam: VITAL SIGNS: Reviewed. GENERAL: Awake HEAD: No signs of head trauma. EYES: Pupils are equal. Extraocular motions intact. MOUTH: Oropharynx is normal. NECK: No adenopathy, no JVD. CHEST: Chest with diminished breath sounds bilaterally. No wheezes, rales, or rhonchi. CARDIAC: normal S1 and S2, without murmurs, gallops, or rubs. ABDOMEN: Soft, non tender and non distended. No rebound or guarding, and no masses palpated. Bowel Sounds normal. MUSCULOSKELETAL: No edema NEUROLOGIC EXAM: Alert and oriented x3. No focal neurologic deficits SKIN: No obvious lesions - Constitutional Vitals: Temp Pulse Resp BP Pulse Ox 98.2 F 71 17 128/71 96 01/16/21 07:41 01/16/21 10:13 01/16/21 07:41 01/16/21 10:13 01/16/21 07:41 HEART Score - HEART Score Age: > 65 Risk factors: > 3 risk factors or hx of atherosclerotic disease Troponin: < normal limit - Critical Actions Critical Actions: 0-3 pts:0.9-1.7%risk of adverse cardiac event.Candidate for discharge Results - Labs CBC & Chem 7: 01/13/21 17:12 01/13/21 17:12 Labs: Laboratory Last Values WBC 4.5 K/mm3 (4.5-11.0) 01/13/21 17:12 RBC 3.21 M/mm3 (3.65-5.03) L 01/13/21 17:12 Hgb 10.1 gm/dl (11.8-15.2) L 01/13/21 17:12 Hct 30.9 % (35.5-45.6) L 01/13/21 17:12 MCV 96 fl (84-94) H 01/13/21 17:12 MCH 31 pg (28-32) 01/13/21 17:12 MCHC 33 % (32-34) 01/13/21 17:12 RDW 17.2 % (13.2-15.2) H 01/13/21 17:12 Plt Count 251 K/mm3 (140-440) 01/13/21 17:12 Lymph % (Auto) 17.4 % (13.4-35.0) 01/13/21 17:12 [place] % (Auto) 10.7 % (0.0-7.3) H 01/13/21 17:12 Eos % (Auto) 3.5 % (0.0-4.3) 01/13/21 17:12 Baso % (Auto) 0.3 % (0.0-1.8) 01/13/21 17:12 Lymph # (Auto) 0.8 K/mm3 (1.2-5.4) L 01/13/21 17:12 [place] # (Auto) 0.5 K/mm3 (0.0-0.8) 01/13/21 17:12 Eos # (Auto) 0.2 K/mm3 (0.0-0.4) 01/13/21 17:12 Baso # (Auto) 0.0 K/mm3 (0.0-0.1) 01/13/21 17:12 Seg Neutrophils % 68.1 % (40.0-70.0) 01/13/21 17:12 Seg Neutrophils # 3.0 K/mm3 (1.8-7.7) 01/13/21 17:12 PT 12.9 Sec. (12.2-14.9) 01/13/21 17:12 INR 0.99 (0.87-1.13) 01/13/21 17:12 APTT 36.5 Sec. (24.2-36.6) 01/13/21 17:12 Sodium 141 mmol/L (137-145) 01/13/21 17:12 Potassium 3.5 mmol/L (3.6-5.0) L 01/13/21 17:12 Chloride 98.1 mmol/L (98-107) 01/13/21 17:12 Carbon Dioxide 27 mmol/L (22-30) 01/13/21 17:12 Anion Gap 19 mmol/L 01/13/21 17:12 BUN 15 mg/dL (9-20) 01/13/21 17:12 Creatinine 3.0 mg/dL (0.8-1.3) H 01/13/21 17:12 Estimated GFR 21 ml/min 01/13/21 17:12 BUN/Creatinine Ratio 5 % 01/13/21 17:12 Glucose 220 mg/dL (75-100) H 01/13/21 17:12 POC Glucose 134 mg/dL (70-105) H 01/16/21 08:32 Calcium 8.9 mg/dL (8.4-10.2) 01/13/21 17:12 Nasal Screen MRSA (PCR) Positive (Negative) 01/14/21 Unknown Robles/IV: Voiding Method Urinal Active Medications - Current Medications Current Medications: Generic Name Dose Route Start Last Admin Trade Name Freq PRN Reason Stop Dose Admin Allopurinol 100 mg 01/14/21 10:00 01/16/21 10:12 Allopurinol 100 Mg Tab PO 100 mg QDAY TAMAR Administration Aspirin 81 mg 01/14/21 10:00 01/16/21 10:13 Aspirin Ec 81 Mg Tab PO 81 mg DAILY TAMAR Administration Atorvastatin Calcium 10 mg 01/14/21 10:00 01/16/21 10:12 Atorvastatin 10 Mg Tab PO 10 mg DAILY TAMAR Administration Clonidine HCl 0.3 mg 01/14/21 02:00 01/16/21 10:13 Clonidine 0.1 Mg Tab PO 0.3 mg BID TAMAR Administration Famotidine 10 mg 01/14/21 10:00 01/16/21 10:12 Famotidine 10 Mg Tab PO 10 mg BID TAMAR Administration Gabapentin 200 mg 01/14/21 10:00 01/16/21 10:12 Gabapentin 100 Mg Cap PO 200 mg Q2D TAMAR Administration Hydralazine HCl 50 mg 01/14/21 02:00 01/16/21 02:40 Hydralazine 25 Mg Tab PO 50 mg Q8H TAMAR Administration Hydromorphone HCl 0.5 mg 01/13/21 21:23 01/13/21 21:32 Hydromorphone 1 Mg/1 Ml Inj IV 0.5 mg Q3H PRN Administration Pain , Severe (7-10) Insulin Glargine 5 units 01/14/21 10:00 01/16/21 08:45 Insulin Glargine 100 Units/Ml SUB-Q 5 units BID TAMAR Administration Insulin Human Lispro 0 unit 01/14/21 07:30 01/16/21 08:50 Insulin Lispro 100 Unit/Ml SUB-Q Not Given ACHS [facility] Protocol Metoprolol Tartrate 50 mg 01/14/21 10:00 01/16/21 10:13 Metoprolol Tartrate 50 Mg Tab PO 50 mg BID TAMAR Administration Mupirocin 1 applic 01/15/21 22:00 01/16/21 10:14 Mupirocin 2% Oint 22 Gm NS 01/25/21 21:59 1 applic BID TAMAR Administration Nifedipine 60 mg 01/14/21 10:00 01/16/21 10:13 Nifedipine Xl 60 Mg Tab PO 60 mg Q12HR TAMAR Administration Tamsulosin HCl 0.4 mg 01/14/21 10:00 01/16/21 10:13 Tamsulosin 0.4 Mg Cap PO 0.4 mg QDAY TAMAR Administration Valsartan 160 mg 01/14/21 10:00 01/16/21 10:13 Valsartan 160mg Tab PO 160 mg Q12HR TAMAR Administration Venlafaxine HCl 25 mg 01/14/21 10:00 01/16/21 10:14 Venlafaxine 25 Mg Tab PO 25 mg BID TAMAR Administration Nutrition/Malnutrition Assess - Dietary Evaluation Nutrition/Malnutrition Findings: Nutrition Notes Start: 01/14/21 12:15 Freq: Status: Active Protocol: Document 01/14/21 12:15 ARMANI (Rec: 01/14/21 12:17 ARMANI [id number]) Nutrition Notes Initial or Follow up Brief Note Current Diagnosis CKD (stage V CKD),Diabetes, Hypertension,Hyperlipidemia Other Pertinent Diagnosis on HD Current Diet NPO Subjective/Other Information RN screen for new DM. Pt states he has had DM for years . Pt is very confused and not appropriate for diet education . Left handouts with pt's items. Nutrition Intervention Follow-Up By: 01/18/21 Additional Comments FU for stable intakes
[2021-01-17] MEDS: hydrALAZINE 25 MG TAB PO SCH ×3 (01:46→18:42)
[2021-01-17] MEDS: INSULIN LISPRO 100 UNIT/ML SUB-Q SCH ×4 (08:39→23:04)
[2021-01-17] MEDS: VALSARTAN 160MG TAB PO SCH ×2 (09:59→23:02)
[2021-01-17] MEDS: allopurinoL 100 MG TAB PO SCH (09:59)
[2021-01-17] MEDS: ASPIRIN EC 81 MG TAB PO SCH (09:59)
[2021-01-17] MEDS: FAMOTIDINE 10 MG TAB PO SCH ×2 (09:59→23:03)
[2021-01-17] MEDS: cloNIDine 0.1 MG TAB PO SCH ×2 (09:59→23:03)
[2021-01-17] MEDS: TAMSULOSIN 0.4 MG CAP PO SCH (09:59)
[2021-01-17] MEDS: VENLAFAXINE 25 MG TAB PO SCH ×2 (09:59→22:51)
[2021-01-17] MEDS: INSULIN GLARGINE 100 UNITS/ML SUB-Q SCH ×2 (10:00→23:09)
[2021-01-17] MEDS: NIFEdipine XL 60 MG TAB PO SCH ×2 (10:00→23:03)
[2021-01-17] MEDS: METOPROLOL TARTRATE 50 MG TAB PO SCH ×2 (10:00→23:03)
[2021-01-17] MEDS: MUPIROCIN 2% OINT 22 GM NS SCH ×2 (10:20→23:13)
--- NOTE | 2021-01-17 10:54 | Progress Note ---
Assessment and Plan Assessment and plan: (1) Hypertensive emergency Current Visit: Yes Status: Acute Plan to address problem: Resolved Continue BP medications (2) Anemia associated with acute blood loss Current Visit: Yes Status: Acute Plan to address problem: Monitor hemoglobin and hematocrit Bleeding controlled (3) Complication of AV dialysis fistula Current Visit: Yes Status: Acute Qualifiers: Encounter type: initial encounter Qualified Code(s): T82.9XXA - Unspecified complication of cardiac and vascular prosthetic device, implant and graft, initial encounter Plan to address problem: S/p fistulogram and angioplasty by IR (4) End stage renal disease on dialysis Current Visit: Yes Status: Chronic Plan to address problem: HD as scheduled (5) Insulin dependent diabetes mellitus Current Visit: Yes Status: Chronic Plan to address problem: Continue home insulin Coverage with Humalog as necessary Check hemoglobin A1c (6) Hyperlipidemia Current Visit: Yes Status: Chronic Qualifiers: Hyperlipidemia type: mixed hyperlipidemia Qualified Code(s): E78.2 - Mixed hyperlipidemia Plan to address problem: Continue statins (7) DVT prophylaxis Current Visit: No Status: Acute Plan to address problem: SCDs and GI prophylaxis for now History Interval history: 01/14. Patient to have a fistulogram today. Plan to DC after fistulogram today if cleared by IR 01/15. Fistulogram placed. Had HD. DCed 01/16. Facility is requesting for COVID prior to DC. COVID test ordered 01/17. Cleared for DC pending COVID result Hospitalist Physical - Physical exam Narrative exam: VITAL SIGNS: Reviewed. GENERAL: Awake HEAD: No signs of head trauma. EYES: Pupils are equal. Extraocular motions intact. MOUTH: Oropharynx is normal. NECK: No adenopathy, no JVD. CHEST: Chest with diminished breath sounds bilaterally. No wheezes, rales, or rhonchi. CARDIAC: normal S1 and S2, without murmurs, gallops, or rubs. ABDOMEN: Soft, non tender and non distended. No rebound or guarding, and no masses palpated. Bowel Sounds normal. MUSCULOSKELETAL: No edema NEUROLOGIC EXAM: Alert and oriented x3. No focal neurologic deficits SKIN: No obvious lesions - Constitutional Vitals: Temp Pulse Resp BP Pulse Ox 97.8 F 61 18 131/48 98 01/17/21 04:09 01/17/21 10:12 01/17/21 10:22 01/17/21 10:12 01/17/21 04:09 HEART Score - HEART Score Age: > 65 Risk factors: > 3 risk factors or hx of atherosclerotic disease Troponin: < normal limit - Critical Actions Critical Actions: 0-3 pts:0.9-1.7%risk of adverse cardiac event.Candidate for discharge Results - Labs CBC & Chem 7: 01/13/21 17:12 01/13/21 17:12 Labs: Laboratory Last Values WBC 4.5 K/mm3 (4.5-11.0) 01/13/21 17:12 RBC 3.21 M/mm3 (3.65-5.03) L 01/13/21 17:12 Hgb 10.1 gm/dl (11.8-15.2) L 01/13/21 17:12 Hct 30.9 % (35.5-45.6) L 01/13/21 17:12 MCV 96 fl (84-94) H 01/13/21 17:12 MCH 31 pg (28-32) 01/13/21 17:12 MCHC 33 % (32-34) 01/13/21 17:12 RDW 17.2 % (13.2-15.2) H 01/13/21 17:12 Plt Count 251 K/mm3 (140-440) 01/13/21 17:12 Lymph % (Auto) 17.4 % (13.4-35.0) 01/13/21 17:12 [place] % (Auto) 10.7 % (0.0-7.3) H 01/13/21 17:12 Eos % (Auto) 3.5 % (0.0-4.3) 01/13/21 17:12 Baso % (Auto) 0.3 % (0.0-1.8) 01/13/21 17:12 Lymph # (Auto) 0.8 K/mm3 (1.2-5.4) L 01/13/21 17:12 [place] # (Auto) 0.5 K/mm3 (0.0-0.8) 01/13/21 17:12 Eos # (Auto) 0.2 K/mm3 (0.0-0.4) 01/13/21 17:12 Baso # (Auto) 0.0 K/mm3 (0.0-0.1) 01/13/21 17:12 Seg Neutrophils % 68.1 % (40.0-70.0) 01/13/21 17:12 Seg Neutrophils # 3.0 K/mm3 (1.8-7.7) 01/13/21 17:12 PT 12.9 Sec. (12.2-14.9) 01/13/21 17:12 INR 0.99 (0.87-1.13) 01/13/21 17:12 APTT 36.5 Sec. (24.2-36.6) 01/13/21 17:12 Sodium 141 mmol/L (137-145) 01/13/21 17:12 Potassium 3.5 mmol/L (3.6-5.0) L 01/13/21 17:12 Chloride 98.1 mmol/L (98-107) 01/13/21 17:12 Carbon Dioxide 27 mmol/L (22-30) 01/13/21 17:12 Anion Gap 19 mmol/L 01/13/21 17:12 BUN 15 mg/dL (9-20) 01/13/21 17:12 Creatinine 3.0 mg/dL (0.8-1.3) H 01/13/21 17:12 Estimated GFR 21 ml/min 01/13/21 17:12 BUN/Creatinine Ratio 5 % 01/13/21 17:12 Glucose 220 mg/dL (75-100) H 01/13/21 17:12 POC Glucose 240 mg/dL (70-105) H 01/17/21 08:03 Calcium 8.9 mg/dL (8.4-10.2) 01/13/21 17:12 Nasal Screen MRSA (PCR) Positive (Negative) 01/14/21 Unknown [place]/IV: Voiding Method Condom Catheter Active Medications - Current Medications Current Medications: Generic Name Dose Route Start Last Admin Trade Name Freq PRN Reason Stop Dose Admin Allopurinol 100 mg 01/14/21 10:00 01/17/21 09:59 Allopurinol 100 Mg Tab PO 100 mg QDAY TAMAR Administration Aspirin 81 mg 01/14/21 10:00 01/17/21 09:59 Aspirin Ec 81 Mg Tab PO 81 mg DAILY TAMAR Administration Atorvastatin Calcium 10 mg 01/14/21 10:00 01/17/21 09:59 Atorvastatin 10 Mg Tab PO 10 mg DAILY TAMAR Administration Clonidine HCl 0.3 mg 01/14/21 02:00 01/17/21 09:59 Clonidine 0.1 Mg Tab PO 0.3 mg BID TAMAR Administration Famotidine 10 mg 01/14/21 10:00 01/17/21 09:59 Famotidine 10 Mg Tab PO 10 mg BID TAMAR Administration Gabapentin 200 mg 01/14/21 10:00 01/16/21 10:12 Gabapentin 100 Mg Cap PO 200 mg Q2D TAMAR Administration Hydralazine HCl 50 mg 01/14/21 02:00 01/17/21 10:12 Hydralazine 25 Mg Tab PO 50 mg Q8H TAMAR Administration Hydromorphone HCl 0.5 mg 01/13/21 21:23 01/13/21 21:32 Hydromorphone 1 Mg/1 Ml Inj IV 0.5 mg Q3H PRN Administration Pain , Severe (7-10) Insulin Glargine 5 units 01/14/21 10:00 01/17/21 10:00 Insulin Glargine 100 Units/Ml SUB-Q 5 units BID TAMAR Administration Insulin Human Lispro 0 unit 01/14/21 07:30 01/17/21 08:39 Insulin Lispro 100 Unit/Ml SUB-Q 3 unit ACHS TAMAR Administration Protocol Metoprolol Tartrate 50 mg 01/14/21 10:00 01/17/21 10:00 Metoprolol Tartrate 50 Mg Tab PO 50 mg BID TAMAR Administration Mupirocin 1 applic 01/15/21 22:00 01/17/21 10:20 Mupirocin 2% Oint 22 Gm NS 01/25/21 21:59 1 applic BID TAMAR Administration Nifedipine 60 mg 01/14/21 10:00 01/17/21 10:00 Nifedipine Xl 60 Mg Tab PO 60 mg Q12HR TAMAR Administration Tamsulosin HCl 0.4 mg 01/14/21 10:00 01/17/21 09:59 Tamsulosin 0.4 Mg Cap PO 0.4 mg QDAY TAMAR Administration Valsartan 160 mg 01/14/21 10:00 01/17/21 09:59 Valsartan 160mg Tab PO 160 mg Q12HR TAMAR Administration Venlafaxine HCl 25 mg 01/14/21 10:00 01/17/21 09:59 Venlafaxine 25 Mg Tab PO 25 mg BID TAMAR Administration Nutrition/Malnutrition Assess - Dietary Evaluation Nutrition/Malnutrition Findings: Nutrition Notes Start: 01/14/21 12:15 Freq: Status: Active Protocol: Document 01/14/21 12:15 ARMANI (Rec: 01/14/21 12:17 ARMANI [id number]) Nutrition Notes Initial or Follow up Brief Note Current Diagnosis CKD (stage V CKD),Diabetes, Hypertension,Hyperlipidemia Other Pertinent Diagnosis on HD Current Diet NPO Subjective/Other Information RN screen for new DM. Pt states he has had DM for years . Pt is very confused and not appropriate for diet education . Left handouts with pt's items. Nutrition Intervention Follow-Up By: 01/18/21 Additional Comments FU for stable intakes
[2021-01-18] MEDS: hydrALAZINE 25 MG TAB PO SCH ×4 (02:54→18:50)
[2021-01-18] MEDS: INSULIN LISPRO 100 UNIT/ML SUB-Q SCH ×4 (08:00→22:54)
[2021-01-18] MEDS: cloNIDine 0.1 MG TAB PO SCH ×2 (10:33→22:53)
[2021-01-18] MEDS: INSULIN GLARGINE 100 UNITS/ML SUB-Q SCH ×2 (10:34→22:53)
[2021-01-18] MEDS: METOPROLOL TARTRATE 50 MG TAB PO SCH ×2 (10:34→22:53)
[2021-01-18] MEDS: VALSARTAN 160MG TAB PO SCH ×2 (10:34→22:52)
[2021-01-18] MEDS: NIFEdipine XL 60 MG TAB PO SCH ×2 (10:35→22:52)
[2021-01-18] MEDS: VENLAFAXINE 25 MG TAB PO SCH ×2 (10:43→22:55)
[2021-01-18] MEDS: GABAPENTIN 100 MG CAP PO SCH (10:43)
[2021-01-18] MEDS: ASPIRIN EC 81 MG TAB PO SCH (10:44)
[2021-01-18] MEDS: allopurinoL 100 MG TAB PO SCH (10:44)
[2021-01-18] MEDS: TAMSULOSIN 0.4 MG CAP PO SCH (10:44)
[2021-01-18] MEDS: FAMOTIDINE 10 MG TAB PO SCH ×2 (10:44→22:52)
[2021-01-18] MEDS: MUPIROCIN 2% OINT 22 GM NS SCH ×2 (10:52→22:55)
--- NOTE | 2021-01-18 12:56 | Progress Note ---
Assessment and Plan Assessment and plan: (1) Hypertensive emergency Current Visit: Yes Status: Acute Plan to address problem: Resolved Continue BP medications (2) Anemia associated with acute blood loss Current Visit: Yes Status: Acute Plan to address problem: Monitor hemoglobin and hematocrit Bleeding controlled (3) Complication of AV dialysis fistula Current Visit: Yes Status: Acute Qualifiers: Encounter type: initial encounter Qualified Code(s): T82.9XXA - Unspecified complication of cardiac and vascular prosthetic device, implant and graft, initial encounter Plan to address problem: S/p fistulogram and angioplasty by IR (4) End stage renal disease on dialysis Current Visit: Yes Status: Chronic Plan to address problem: HD as scheduled (5) Insulin dependent diabetes mellitus Current Visit: Yes Status: Chronic Plan to address problem: Continue home insulin Coverage with Humalog as necessary Check hemoglobin A1c (6) Hyperlipidemia Current Visit: Yes Status: Chronic Qualifiers: Hyperlipidemia type: mixed hyperlipidemia Qualified Code(s): E78.2 - Mixed hyperlipidemia Plan to address problem: Continue statins (7) DVT prophylaxis Current Visit: No Status: Acute Plan to address problem: SCDs and GI prophylaxis for now 01/14. Patient to have a fistulogram today. Plan to DC after fistulogram today if cleared by IR 01/15. Fistulogram placed. Had HD. DCed 01/16. Facility is requesting for COVID prior to DC. COVID test ordered 01/17. Cleared for DC pending COVID result 01/18: No new complaints, awaiting placement, discussed with case management and also with the patient. History Interval history: Patient seen and examined resting comfortable, No new complaints. Awaiting placement Hospitalist Physical - Physical exam Narrative exam: VITAL SIGNS: Reviewed. GENERAL: Awake HEAD: No signs of head trauma. EYES: Pupils are equal. Extraocular motions intact. MOUTH: Oropharynx is normal. NECK: No adenopathy, no JVD. CHEST: Chest with diminished breath sounds bilaterally. No wheezes, rales, or rhonchi. CARDIAC: normal S1 and S2, without murmurs, gallops, or rubs. ABDOMEN: Soft, non tender and non distended. No rebound or guarding, and no masses palpated. Bowel Sounds normal. MUSCULOSKELETAL: No edema NEUROLOGIC EXAM: Alert and oriented x3. No focal neurologic deficits SKIN: No obvious lesions - Constitutional Vitals: Temp Pulse Resp BP Pulse Ox 97.6 F 55 L 20 117/53 98 01/18/21 10:34 01/18/21 10:34 01/18/21 10:34 01/18/21 10:34 01/18/21 10:34 General appearance: Present: no acute distress HEART Score - HEART Score Age: > 65 Risk factors: > 3 risk factors or hx of atherosclerotic disease Troponin: < normal limit - Critical Actions Critical Actions: 0-3 pts:0.9-1.7%risk of adverse cardiac event.Candidate for discharge Results - Labs CBC & Chem 7: 01/13/21 17:12 01/13/21 17:12 Labs: Laboratory Last Values WBC 4.5 K/mm3 (4.5-11.0) 01/13/21 17:12 RBC 3.21 M/mm3 (3.65-5.03) L 01/13/21 17:12 Hgb 10.1 gm/dl (11.8-15.2) L 01/13/21 17:12 Hct 30.9 % (35.5-45.6) L 01/13/21 17:12 MCV 96 fl (84-94) H 01/13/21 17:12 MCH 31 pg (28-32) 01/13/21 17:12 MCHC 33 % (32-34) 01/13/21 17:12 RDW 17.2 % (13.2-15.2) H 01/13/21 17:12 Plt Count 251 K/mm3 (140-440) 01/13/21 17:12 Lymph % (Auto) 17.4 % (13.4-35.0) 01/13/21 17:12 [place] % (Auto) 10.7 % (0.0-7.3) H 01/13/21 17:12 Eos % (Auto) 3.5 % (0.0-4.3) 01/13/21 17:12 Baso % (Auto) 0.3 % (0.0-1.8) 01/13/21 17:12 Lymph # (Auto) 0.8 K/mm3 (1.2-5.4) L 01/13/21 17:12 [place] # (Auto) 0.5 K/mm3 (0.0-0.8) 01/13/21 17:12 Eos # (Auto) 0.2 K/mm3 (0.0-0.4) 01/13/21 17:12 Baso # (Auto) 0.0 K/mm3 (0.0-0.1) 01/13/21 17:12 Seg Neutrophils % 68.1 % (40.0-70.0) 01/13/21 17:12 Seg Neutrophils # 3.0 K/mm3 (1.8-7.7) 01/13/21 17:12 PT 12.9 Sec. (12.2-14.9) 01/13/21 17:12 INR 0.99 (0.87-1.13) 01/13/21 17:12 APTT 36.5 Sec. (24.2-36.6) 01/13/21 17:12 Sodium 141 mmol/L (137-145) 01/13/21 17:12 Potassium 3.5 mmol/L (3.6-5.0) L 01/13/21 17:12 Chloride 98.1 mmol/L (98-107) 01/13/21 17:12 Carbon Dioxide 27 mmol/L (22-30) 01/13/21 17:12 Anion Gap 19 mmol/L 01/13/21 17:12 BUN 15 mg/dL (9-20) 01/13/21 17:12 Creatinine 3.0 mg/dL (0.8-1.3) H 01/13/21 17:12 Estimated GFR 21 ml/min 01/13/21 17:12 BUN/Creatinine Ratio 5 % 01/13/21 17:12 Glucose 220 mg/dL (75-100) H 01/13/21 17:12 POC Glucose 103 mg/dL (70-105) 01/18/21 11:10 Calcium 8.9 mg/dL (8.4-10.2) 01/13/21 17:12 Nasal Screen MRSA (PCR) Positive (Negative) 01/14/21 Unknown Coronavirus (PCR) Positive (Negative) A 01/16/21 10:10 [place]/IV: Voiding Method Condom Catheter Active Medications - Current Medications Current Medications: Generic Name Dose Route Start Last Admin Trade Name Freq PRN Reason Stop Dose Admin Allopurinol 100 mg 01/14/21 10:00 01/18/21 10:44 Allopurinol 100 Mg Tab PO 100 mg QDAY TAMAR Administration Aspirin 81 mg 01/14/21 10:00 01/18/21 10:44 Aspirin Ec 81 Mg Tab PO 81 mg DAILY TAMAR Administration Atorvastatin Calcium 10 mg 01/14/21 10:00 01/18/21 10:44 Atorvastatin 10 Mg Tab PO 10 mg DAILY TAMAR Administration Clonidine HCl 0.3 mg 01/14/21 02:00 01/18/21 10:33 Clonidine 0.1 Mg Tab PO Not Given BID TAMAR Famotidine 10 mg 01/14/21 10:00 01/18/21 10:44 Famotidine 10 Mg Tab PO 10 mg BID [facility] Administration Gabapentin 200 mg 01/14/21 10:00 01/18/21 10:43 Gabapentin 100 Mg Cap PO 200 mg Q2D TAMAR Administration Hydralazine HCl 50 mg 01/14/21 02:00 01/18/21 10:33 Hydralazine 25 Mg Tab PO Not Given Q8H [facility] Hydromorphone HCl 0.5 mg 01/13/21 21:23 01/13/21 21:32 Hydromorphone 1 Mg/1 Ml Inj IV 0.5 mg Q3H PRN Administration Pain , Severe (7-10) Insulin Glargine 5 units 01/14/21 10:00 01/18/21 10:34 Insulin Glargine 100 Units/Ml SUB-Q Not Given BID [facility] Insulin Human Lispro 0 unit 01/14/21 07:30 01/18/21 08:00 Insulin Lispro 100 Unit/Ml SUB-Q Not Given [facility] Protocol Metoprolol Tartrate 50 mg 01/14/21 10:00 01/18/21 10:34 Metoprolol Tartrate 50 Mg Tab PO Not Given BID [facility] Mupirocin 1 applic 01/15/21 22:00 01/18/21 10:52 Mupirocin 2% Oint 22 Gm NS 01/25/21 21:59 1 applic BID [facility] Administration Nifedipine 60 mg 01/14/21 10:00 01/18/21 10:35 Nifedipine Xl 60 Mg Tab PO Not Given Q12HR [facility] Tamsulosin HCl 0.4 mg 01/14/21 10:00 01/18/21 10:44 Tamsulosin 0.4 Mg Cap PO 0.4 mg QDAY [facility] Administration Valsartan 160 mg 01/14/21 10:00 01/18/21 10:34 Valsartan 160mg Tab PO Not Given Q12HR TAMAR Venlafaxine HCl 25 mg 01/14/21 10:00 01/18/21 10:43 Venlafaxine 25 Mg Tab PO 25 mg BID TAMAR Administration Nutrition/Malnutrition Assess - Dietary Evaluation Nutrition/Malnutrition Findings: Nutrition Notes Start: 01/14/21 12:15 Freq: Status: Active Protocol: Document 01/14/21 12:15 ARMANI (Rec: 01/14/21 12:17 [id number]) Nutrition Notes Initial or Follow up Brief Note Current Diagnosis CKD (stage V CKD),Diabetes, Hypertension,Hyperlipidemia Other Pertinent Diagnosis on HD Current Diet NPO Subjective/Other Information RN screen for new DM. Pt states he has had DM for years . Pt is very confused and not appropriate for diet education . Left handouts with pt's items. Nutrition Intervention Follow-Up By: 01/18/21 Additional Comments FU for stable intakes
[2021-01-19] MEDS: hydrALAZINE 25 MG TAB PO SCH ×3 (03:12→21:46)
[2021-01-19] MEDS: INSULIN LISPRO 100 UNIT/ML SUB-Q SCH ×4 (08:32→22:00)
--- NOTE | 2021-01-19 09:16 | Discharge Summary ---
Providers - Providers Date of Admission: 01/18/21 13:35 Attending physician: MATHEW GARCIA MD 01/13/21 17:14 Consult to Physician [CONS] Stat Comment: Consulting Provider: CHRISTIANO ZAZUETA Physician Instructions: Reason For Exam: Bleeding from AV fistula, hypotension Primary care physician: ANGLE [employer]ER OPERATOR Hospitalization Condition: Stable Hospital course: (1) Hypertensive emergency Current Visit: Yes Status: Acute Plan to address problem: Resolved Continue BP medications (2) Anemia associated with acute blood loss Current Visit: Yes Status: Acute Plan to address problem: Monitor hemoglobin and hematocrit Bleeding controlled (3) Complication of AV dialysis fistula Current Visit: Yes Status: Acute Qualifiers: Encounter type: initial encounter Qualified Code(s): T82.9XXA - Unspecified complication of cardiac and vascular prosthetic device, implant and graft, initial encounter Plan to address problem: S/p fistulogram and angioplasty by IR (4) End stage renal disease on dialysis Current Visit: Yes Status: Chronic Plan to address problem: HD as scheduled (5) Insulin dependent diabetes mellitus Current Visit: Yes Status: Chronic Plan to address problem: Continue home insulin Coverage with Humalog as necessary Check hemoglobin A1c (6) Hyperlipidemia Current Visit: Yes Status: Chronic Qualifiers: Hyperlipidemia type: mixed hyperlipidemia Qualified Code(s): E78.2 - Mixed hyperlipidemia Plan to address problem: Continue statins (7) DVT prophylaxis Current Visit: No Status: Acute Plan to address problem: SCDs and GI prophylaxis for now 01/14. Patient to have a fistulogram today. Plan to DC after fistulogram today if cleared by IR 01/15. Fistulogram placed. Had HD. DCed 01/16. Facility is requesting for COVID prior to DC. COVID test ordered 01/17. Cleared for DC pending COVID result 01/18: No new complaints, awaiting placement, discussed with case management and also with the patient. 01/19: Discussed with crib clerk. Will obtain stat labs for BMP and also CBC. Anticipate discharge to long-term facility after dialysis today. 01/20: Noted anemia with hemoglobin of 7.7 showing some improvement. Hyperkalemia noted yesterday awaiting repeat study following dialysis. Nephrology input is appreciated. Anticipate discharge once outpatient dialysis is established. 01/21: Continue supportive care. Discussed with crib clerk. Awaiting placement monitor mental status as patient had a bit of sundowning this morning although that has resolved. CT head done was negative. Patient cleared for discharge. - Discharge Diagnoses (1) Hypertensive emergency Current Visit: Yes Status: Acute Plan to address problem: Resolved Continue BP medications (2) Anemia associated with acute blood loss Current Visit: Yes Status: Acute Plan to address problem: Monitor hemoglobin and hematocrit Bleeding controlled (3) Complication of AV dialysis fistula Current Visit: Yes Status: Acute Qualifiers: Encounter type: initial encounter Qualified Code(s): T82.9XXA - Unspecified complication of cardiac and vascular prosthetic device, implant and graft, initial encounter Plan to address problem: S/p fistulogram and angioplasty by IR (4) End stage renal disease on dialysis Current Visit: Yes Status: Chronic Plan to address problem: HD as scheduled (5) Insulin dependent diabetes mellitus Current Visit: Yes Status: Chronic Plan to address problem: Continue home insulin Coverage with Humalog as necessary Check hemoglobin A1c (6) Hyperlipidemia Current Visit: Yes Status: Chronic Qualifiers: Hyperlipidemia type: mixed hyperlipidemia Qualified Code(s): E78.2 - Mixed hyperlipidemia Plan to address problem: Continue statins (7) DVT prophylaxis Current Visit: No Status: Acute Plan to address problem: SCDs and GI prophylaxis for now 01/14. Patient to have a fistulogram today. Plan to DC after fistulogram today if cleared by IR 01/15. Fistulogram placed. Had HD. DCed 01/16. Facility is requesting for COVID prior to DC. COVID test ordered 01/17. Cleared for DC pending COVID result 01/18: No new complaints, awaiting placement, discussed with case management and also with the patient. 01/19: Clinical stable this am, now on room air. Reviewing records showing that the patient unfortunately I cannot find any information about dialysis post placement. I have consulted crib clerk to get patient dialyzed prior to discharge. We will also check a stat BMP. Disposition: DC/[place]-[facility] SNF [facility] C[facility] Final Discharge Diagnosis (Prints w/discharge instructions): Complication of AV dialysis fistula Core Measure Documentation - Palliative Care Palliative Care/ Comfort Measures: Not Applicable Exam - Constitutional Vitals: Temp Pulse Resp BP Pulse Ox 97.9 F 60 17 123/55 99 01/19/21 06:30 01/19/21 06:30 01/19/21 06:30 01/19/21 06:30 01/19/21 06:30 Plan Activity: advance as tolerated, fall precautions Diet: diabetic, renal Special Instructions: restrict fluid intake to (1200cc/day), record daily weights, record daily BP diary, record blood sugar diary Plan of Treatment: CONTINUE HD WITH OUTPATIENT E/M ENGINEER. Follow up with: PRIMARY CAREMD [Primary Care Provider] - 7 Days AMANUEL DAVILA MD [Staff Physician] - 7 Days
[2021-01-19] MEDS ORDERED: SODIUM CHLORIDE 0.9% 100 ML IV PRN (10:19)
[2021-01-19] MEDS ORDERED: EPOETIN ALFA-EPBX 20,000 UNIT/1 ML VIAL IV PRN (10:19)
--- NOTE | 2021-01-19 10:19 | Event Note ---
Date: 01/19/21 The patient's left arm AV access has a palpable thrill. It is okay to use the access for dialysis.
--- NOTE | 2021-01-19 10:58 | Consultation ---
History of Present Illness - Reason for Consult Consult date: 01/19/21 end stage renal disease Requesting physician: MATHEW CRAIG - History of Present Illness 75-year-old male with a history of hypertension, end-stage renal disease on hemodialysis. Patient was brought to the hospital because of continuous bleeding from left upper extremity AV fistula. That lasted for more than 1 hour after dialysis. Patient had a near syncopal episode with blood pressure droppi ng from 178/110 by EMS to as low as 110/70. A straps were applied to avoid any AV graft with resolution of the bleeding. The next day Patient had AV graft thrombosis. Patient was seen by vascular and had Angioplasty with fistulogram and mechanical Thrombectomy, angioplasty and stenting on January 14. Past History Past Medical History: diabetes, ESRD, hypertension, hyperlipidemia, other (Cholangiocarcinoma, dementia, PTSD, benign prostatic hypertrophy) Past Surgical History: cholecystectomy, Other (Creation of left arm arterioveno us graft) Social history: Family history: no significant family history Medications and Allergies Allergies Allergy/AdvReac Type Severity Reaction Status Date / Time acetaminophen [From Percocet] Allergy Unknown Verified 07/13/20 14:52 oxycodone [From Percocet] Allergy Unknown Verified 07/13/20 14:52 lisinopril AdvReac Unknown Verified 07/13/20 14:53 Home Medications Medication Instructions Recorded Confirmed Last Taken Type Aspirin [Adult Aspirin] 81 mg PO DAILY 07/13/20 07/13/20 Unknown History Atorvastatin Calcium [Lipitor] 10 mg PO DAILY 07/13/20 07/13/20 Unknown History Gabapentin [Neurontin] 200 mg PO Q2D 07/13/20 07/13/20 Unknown History Insulin Glargine [Lantus VIAL] 5 unit SUB-Q BID 07/13/20 07/13/20 Unknown History Tamsulosin [Flomax] 0.4 mg PO QDAY 07/13/20 07/13/20 Unknown History Venlafaxine [Effexor 25mg tab] 25 mg PO BID 07/13/20 07/13/20 Unknown History allopurinoL [Zyloprim] 100 mg PO QDAY 07/13/20 07/13/20 Unknown History cloNIDine [Catapres] 0.3 mg PO BID 07/13/20 07/13/20 Unknown History Famotidine [Pepcid] 10 mg PO BID tablet 07/19/20 Unknown Rx Metoprolol [Lopressor TAB] 50 mg PO BID tablet 07/19/20 Unknown Rx NIFEdipine XL [Procardia Xl] 60 mg PO Q12HR tablet 07/19/20 Unknown Rx Valsartan [Diovan] 160 mg PO Q12H tablet 07/19/20 Unknown Rx hydrALAZINE [Apresoline TAB] 50 mg PO Q8HR tablet 07/19/20 Unknown Rx Mupirocin [Bactroban 2% OINT] 1 applic NS BID tube 01/19/21 Unknown Rx Active Meds: Active Medications Allopurinol (Allopurinol 100 Mg Tab) 100 mg PO QDAY [facility] Last Admin: 01/18/21 10:44 Dose: 100 mg Documented by: Aspirin (Aspirin Ec 81 Mg Tab) 81 mg PO DAILY [facility] Last Admin: 01/18/21 10:44 Dose: 81 mg Documented by: Atorvastatin Calcium (Atorvastatin 10 Mg Tab) 10 mg PO DAILY [facility] Last Admin: 01/18/21 10:44 Dose: 10 mg Documented by: Clonidine HCl (Clonidine 0.1 Mg Tab) 0.3 mg PO BID [facility] Last Admin: 01/18/21 22:53 Dose: 0.3 mg Documented by: Famotidine (Famotidine 10 Mg Tab) 10 mg PO BID [facility] Last Admin: 01/18/21 22:52 Dose: 10 mg Documented by: Gabapentin (Gabapentin 100 Mg Cap) 200 mg PO Q2D [facility] Last Admin: 01/18/21 10:43 Dose: 200 mg Documented by: Hydralazine HCl (Hydralazine 25 Mg Tab) 50 mg PO Q8H [facility] Last Admin: 01/19/21 03:12 Dose: 50 mg Documented by: Hydromorphone HCl (Hydromorphone 1 Mg/1 Ml Inj) 0.5 mg IV Q3H PRN PRN Reason: Pain , Severe (7-10) Last Admin: 01/13/21 21:32 Dose: 0.5 mg Documented by: Sodium Chloride (Nacl 0.9%) 100 mls @ 999 mls/hr IV RADHA PRN PRN Reason: Hypotension Insulin Glargine (Insulin Glargine 100 Units/Ml) 5 units SUB-Q BID [facility] Last Admin: 01/18/21 22:53 Dose: 5 units Documented by: Insulin Human Lispro (Insulin Lispro 100 Unit/Ml) 0 unit SUB-Q ACHS [facility]; Protocol Last Admin: 01/19/21 08:32 Dose: Not Given Documented by: Metoprolol Tartrate (Metoprolol Tartrate 50 Mg Tab) 50 mg PO BID [facility] Last Admin: 01/18/21 22:53 Dose: 50 mg Documented by: Mupirocin (Mupirocin 2% Oint 22 Gm) 1 applic NS BID [facility] Stop: 01/25/21 21:59 Last Admin: 01/18/21 22:55 Dose: 1 applic Documented by: Nifedipine (Nifedipine Xl 60 Mg Tab) 60 mg PO Q12HR [facility] Last Admin: 01/18/21 22:52 Dose: 60 mg Documented by: Tamsulosin HCl (Tamsulosin 0.4 Mg Cap) 0.4 mg PO QDAY [facility] Last Admin: 01/18/21 10:44 Dose: 0.4 mg Documented by: Valsartan (Valsartan 160mg Tab) 160 mg PO Q12HR [facility] Last Admin: 01/18/21 22:52 Dose: 160 mg Documented by: Venlafaxine HCl (Venlafaxine 25 Mg Tab) 25 mg PO BID [facility] Last Admin: 01/18/21 22:55 Dose: 25 mg Documented by: Review of Systems ROS unobtainable: due to mental status (And also due to PPE conservation bedside examination was not done) Exam - Vital Signs Vital signs: Vital Signs Temp Pulse Resp BP Pulse Ox 98.8 F 88 18 166/122 97 01/13/21 17:12 01/13/21 17:12 01/13/21 17:12 01/13/21 17:12 01/13/21 17:12 - Physical Exam Narrative exam: Patient was not examined at the bedside today due to personal protective equipment preservation during the COVID-19 pandemic Results - Lab Results 01/13/21 17:12 01/13/21 17:12 Most recent lab results Calcium 8.9 mg/dL (8.4-10.2) 01/13/21 17:12 Assessment and Plan - Patient Problems (1) Anemia associated with acute blood loss Current Visit: Yes Status: Acute Plan to address problem: Acute blood loss due to bleeding AV graft. Hemoglobin was 10 g/dL. Has not been checked in a couple of days. We will follow-up hemoglobin (2) Complication of AV dialysis fistula Current Visit: Yes Status: Acute Qualifiers: Encounter type: initial encounter Qualified Code(s): T82.9XXA - Unspecified complication of cardiac and vascular prosthetic device, implant and graft, initial encounter Plan to address problem: Status post angioplasty and stent placement. Okay to use AV graft per Vascular (3) Hypertensive emergency Current Visit: Yes Status: Acute Plan to address problem: Blood pressure elevated on presentation but is now better. Follow-up blood pressure (4) End stage renal disease on dialysis Current Visit: Yes Status: Chronic Plan to address problem: Hemodialysis today. Will check BMP stat to follow-up potassium. Discussed with dialysis nurse. Also discussed with primary attending Dr. Craig and I called vascular surgeon Dr. Diomedes Marino who was going to evaluate the patient (5) Type 2 diabetes mellitus with diabetic chronic kidney disease Current Visit: No Status: Acute Plan to address problem: Blood sugar management by primary attending
[2021-01-19] MEDS: VALSARTAN 160MG TAB PO SCH ×2 (11:04→21:45)
[2021-01-19] MEDS: FAMOTIDINE 10 MG TAB PO SCH ×2 (11:04→21:46)
[2021-01-19] MEDS: TAMSULOSIN 0.4 MG CAP PO SCH (11:05)
[2021-01-19] MEDS: cloNIDine 0.1 MG TAB PO SCH ×3 (11:05→21:47)
[2021-01-19] MEDS: METOPROLOL TARTRATE 50 MG TAB PO SCH ×3 (11:05→21:47)
[2021-01-19] MEDS: allopurinoL 100 MG TAB PO SCH (11:05)
[2021-01-19] MEDS: NIFEdipine XL 60 MG TAB PO SCH ×2 (11:05→21:46)
[2021-01-19] MEDS: INSULIN GLARGINE 100 UNITS/ML SUB-Q SCH ×2 (11:08→22:00)
[2021-01-19] MEDS: VENLAFAXINE 25 MG TAB PO SCH ×2 (13:00→21:46)
[2021-01-19] MEDS: ASPIRIN EC 81 MG TAB PO SCH (13:00)
--- NOTE | 2021-01-19 13:09 | Progress Note ---
Assessment and Plan Assessment and plan: (1) Hypertensive emergency Current Visit: Yes Status: Acute Plan to address problem: Resolved Continue BP medications (2) Anemia associated with acute blood loss Current Visit: Yes Status: Acute Plan to address problem: Monitor hemoglobin and hematocrit Bleeding controlled (3) Complication of AV dialysis fistula Current Visit: Yes Status: Acute Qualifiers: Encounter type: initial encounter Qualified Code(s): T82.9XXA - Unspecified complication of cardiac and vascular prosthetic device, implant and graft, initial encounter Plan to address problem: S/p fistulogram and angioplasty by IR (4) End stage renal disease on dialysis Current Visit: Yes Status: Chronic Plan to address problem: HD as scheduled (5) Insulin dependent diabetes mellitus Current Visit: Yes Status: Chronic Plan to address problem: Continue home insulin Coverage with Humalog as necessary Check hemoglobin A1c (6) Hyperlipidemia Current Visit: Yes Status: Chronic Qualifiers: Hyperlipidemia type: mixed hyperlipidemia Qualified Code(s): E78.2 - Mixed hyperlipidemia Plan to address problem: Continue statins (7) DVT prophylaxis Current Visit: No Status: Acute Plan to address problem: SCDs and GI prophylaxis for now 01/14. Patient to have a fistulogram today. Plan to DC after fistulogram today if cleared by IR 01/15. Fistulogram placed. Had HD. DCed 01/16. Facility is requesting for COVID prior to DC. COVID test ordered 01/17. Cleared for DC pending COVID result 01/18: No new complaints, awaiting placement, discussed with case management and also with the patient. 01/19: Discussed with telephone assembler. Will obtain stat labs for BMP and also CBC. Anticipate discharge to [facility] facility after dialysis today. History Interval history: Patient seen and examined resting comfortable, No new complaints. Awaiting placement. Discussed with dialysis DrKatie Patient will get dialyzed today. Hospitalist Physical - Physical exam Narrative exam: VITAL SIGNS: Reviewed. GENERAL: Awake HEAD: No signs of head trauma. EYES: Pupils are equal. Extraocular motions intact. MOUTH: Oropharynx is normal. NECK: No adenopathy, no JVD. CHEST: Chest with diminished breath sounds bilaterally. No wheezes, rales, or rhonchi. CARDIAC: normal S1 and S2, without murmurs, gallops, or rubs. ABDOMEN: Soft, non tender and non distended. No rebound or guarding, and no masses palpated. Bowel Sounds normal. MUSCULOSKELETAL: No edema NEUROLOGIC EXAM: Alert and oriented x3. No focal neurologic deficits SKIN: No obvious lesions - Constitutional Vitals: Temp Pulse Resp BP Pulse Ox 97.9 F 60 17 123/55 99 01/19/21 06:30 01/19/21 11:11 01/19/21 06:30 01/19/21 11:11 01/19/21 06:30 General appearance: Present: no acute distress HEART Score - HEART Score Age: > 65 Risk factors: > 3 risk factors or hx of atherosclerotic disease Troponin: < normal limit - Critical Actions Critical Actions: 0-3 pts:0.9-1.7%risk of adverse cardiac event.Candidate for discharge Results - Labs CBC & Chem 7: 01/13/21 17:12 01/13/21 17:12 Labs: Laboratory Last Values WBC 4.5 K/mm3 (4.5-11.0) 01/13/21 17:12 RBC 3.21 M/mm3 (3.65-5.03) L 01/13/21 17:12 Hgb 10.1 gm/dl (11.8-15.2) L 01/13/21 17:12 Hct 30.9 % (35.5-45.6) L 01/13/21 17:12 MCV 96 fl (84-94) H 01/13/21 17:12 MCH 31 pg (28-32) 01/13/21 17:12 MCHC 33 % (32-34) 01/13/21 17:12 RDW 17.2 % (13.2-15.2) H 01/13/21 17:12 Plt Count 251 K/mm3 (140-440) 01/13/21 17:12 Lymph % (Auto) 17.4 % (13.4-35.0) 01/13/21 17:12 [place] % (Auto) 10.7 % (0.0-7.3) H 01/13/21 17:12 Eos % (Auto) 3.5 % (0.0-4.3) 01/13/21 17:12 Baso % (Auto) 0.3 % (0.0-1.8) 01/13/21 17:12 Lymph # (Auto) 0.8 K/mm3 (1.2-5.4) L 01/13/21 17:12 [place] # (Auto) 0.5 K/mm3 (0.0-0.8) 01/13/21 17:12 Eos # (Auto) 0.2 K/mm3 (0.0-0.4) 01/13/21 17:12 Baso # (Auto) 0.0 K/mm3 (0.0-0.1) 01/13/21 17:12 Seg Neutrophils % 68.1 % (40.0-70.0) 01/13/21 17:12 Seg Neutrophils # 3.0 K/mm3 (1.8-7.7) 01/13/21 17:12 PT 12.9 Sec. (12.2-14.9) 01/13/21 17:12 INR 0.99 (0.87-1.13) 01/13/21 17:12 APTT 36.5 Sec. (24.2-36.6) 01/13/21 17:12 Sodium 141 mmol/L (137-145) 01/13/21 17:12 Potassium 3.5 mmol/L (3.6-5.0) L 01/13/21 17:12 Chloride 98.1 mmol/L (98-107) 01/13/21 17:12 Carbon Dioxide 27 mmol/L (22-30) 01/13/21 17:12 Anion Gap 19 mmol/L 01/13/21 17:12 BUN 15 mg/dL (9-20) 01/13/21 17:12 Creatinine 3.0 mg/dL (0.8-1.3) H 01/13/21 17:12 Estimated GFR 21 ml/min 01/13/21 17:12 BUN/Creatinine Ratio 5 % 01/13/21 17:12 Glucose 220 mg/dL (75-100) H 01/13/21 17:12 POC Glucose 139 mg/dL (70-105) H 01/19/21 12:29 Calcium 8.9 mg/dL (8.4-10.2) 01/13/21 17:12 Nasal Screen MRSA (PCR) Positive (Negative) 01/14/21 Unknown Coronavirus (PCR) Positive (Negative) A 01/16/21 10:10 Robles/IV: Voiding Method Condom Catheter Active Medications - Current Medications Current Medications: Generic Name Dose Route Start Last Admin Trade Name Freq PRN Reason Stop Dose Admin Allopurinol 100 mg 01/14/21 10:00 01/19/21 11:05 Allopurinol 100 Mg Tab PO 100 mg QDAY TAMAR Administration Aspirin 81 mg 01/14/21 10:00 01/19/21 13:00 Aspirin Ec 81 Mg Tab PO 81 mg DAILY TAMAR Administration Atorvastatin Calcium 10 mg 01/14/21 10:00 01/19/21 11:05 Atorvastatin 10 Mg Tab PO 10 mg DAILY TAMAR Administration Clonidine HCl 0.3 mg 01/14/21 02:00 01/19/21 11:10 Clonidine 0.1 Mg Tab PO Not Given BID TAMAR Famotidine 10 mg 01/14/21 10:00 01/19/21 11:04 Famotidine 10 Mg Tab PO 10 mg BID TAMAR Administration Gabapentin 200 mg 01/14/21 10:00 01/18/21 10:43 Gabapentin 100 Mg Cap PO 200 mg Q2D TAMAR Administration Hydralazine HCl 50 mg 01/14/21 02:00 01/19/21 11:09 Hydralazine 25 Mg Tab PO Not Given Q8H TAMAR Hydromorphone HCl 0.5 mg 01/13/21 21:23 01/13/21 21:32 Hydromorphone 1 Mg/1 Ml Inj IV 0.5 mg Q3H PRN Administration Pain , Severe (7-10) Sodium Chloride 100 mls @ 999 mls/hr 01/19/21 10:19 Nacl 0.9% IV RADHA PRN Hypotension Insulin Glargine 5 units 01/14/21 10:00 01/19/21 11:08 Insulin Glargine 100 Units/Ml SUB-Q Not Given BID TAMAR Insulin Human Lispro 0 unit 01/14/21 07:30 01/19/21 12:37 Insulin Lispro 100 Unit/Ml SUB-Q Not Given ACHS [facility] Protocol Metoprolol Tartrate 50 mg 01/14/21 10:00 01/19/21 11:11 Metoprolol Tartrate 50 Mg Tab PO Not Given BID TAMAR Mupirocin 1 applic 01/15/21 22:00 01/18/21 22:55 Mupirocin 2% Oint 22 Gm NS 01/25/21 21:59 1 applic BID TAMAR Administration Nifedipine 60 mg 01/14/21 10:00 01/19/21 11:05 Nifedipine Xl 60 Mg Tab PO 60 mg Q12HR TAMAR Administration Tamsulosin HCl 0.4 mg 01/14/21 10:00 01/19/21 11:05 Tamsulosin 0.4 Mg Cap PO 0.4 mg QDAY TAMAR Administration Valsartan 160 mg 01/14/21 10:00 01/19/21 11:04 Valsartan 160mg Tab PO 160 mg Q12HR TAMAR Administration Venlafaxine HCl 25 mg 01/14/21 10:00 01/19/21 13:00 Venlafaxine 25 Mg Tab PO 25 mg BID TAMAR Administration Nutrition/Malnutrition Assess - Dietary Evaluation Nutrition/Malnutrition Findings: Nutrition Notes Start: 01/14/21 12:15 Freq: Status: Active Protocol: Document 01/18/21 14:12 CW (Rec: 01/18/21 14:17 CW [email or web address]) Nutrition Notes Initial or Follow up Assessment Current Diagnosis CKD (stage V CKD),Diabetes, Hypertension,Hyperlipidemia Other Pertinent Diagnosis Covid 19+, on HD Current Diet Consistent Carbohydrate Diet Labs/Tests last labs on 01/13/2021 Pertinent Medications reviewed Height 5 ft 9 in Weight 56.2 kg [place] Body Weight (kg) 72.72 BMI 18.3 Weight Status Underweight Subjective/Other Information F/U for stable intakes. Pt eating 75 - 100% of meals. Will recommend ONS QD for stbale weight gain towards adequate BMI Percent of energy/protein needs met: 100%/100% Burn Absent Trauma Absent Current % PO Good (75-100%) Minimum of two criteria No physical signs of malnutrition #1 Nutrition Diagnosis Underweight Etiology advanced age As Evidenced by Signs and Symptoms BMI of 18.3 with excellent PO intake Is patient on ventilator? No Is Patient Ambulatory and/or Out of Bed No REE-([facility]-confined to bed) [phone] Calculation Used for Recommendations [facility] Additional Notes protein needs: 56 - 67g (1 - 1 .2 g/kgBW) fluid needs: 1 ml/kcal Nutrition Intervention Change Diet Order: Continue current diet Add Supplement/Snack (indicate name/kcal Glucerna QD /protein ) Anticipated Discharge Needs: Consistent Carbohydrate Diet + ONS QD Follow-Up By: 01/21/21 Additional Comments F/U for PO intake
[2021-01-19 14:40] LABS: Hematocrit 22.5 % (35.5-45.6); Hemoglobin 7.7 gm/dl (11.8-15.2); Mean Corpuscular HGB Conc 34 % (32-34); Mean Corpuscular Volume 94 fl (84-94); Platelet Count 283 K/mm3 (140-440); Red Blood Count 2.39 M/mm3 (3.65-5.03); Red Cell Distribution Width 18.8 % (13.2-15.2)
[2021-01-19 15:04] LABS: Calcium 8.2 mg/dL (8.4-10.2)
[2021-01-19 15:09] LABS: Hepatitis B Surface Antigen Non-Reactive (Negative); Hepatitis C Virus Antibody Non-Reactive (NonReactive)
[2021-01-19] MEDS: MUPIROCIN 2% OINT 22 GM NS SCH ×2 (15:18→21:44)
[2021-01-20] MEDS: hydrALAZINE 25 MG TAB PO SCH ×3 (04:35→23:07)
[2021-01-20] MEDS: INSULIN LISPRO 100 UNIT/ML SUB-Q SCH ×4 (07:56→23:48)
--- NOTE | 2021-01-20 08:47 | Progress Note ---
Assessment and Plan - Patient Problems (1) Anemia associated with acute blood loss Current Visit: Yes Status: Acute Plan to address problem: Acute blood loss due to bleeding AV graft. Hemoglobin was 10 g/dL. Decreased to 7.7 g/dl yesterday. We will recheck hemoglobin today. Give erythropoietin on dialysis. (2) Complication of AV dialysis fistula Current Visit: Yes Status: Resolved Qualifiers: Encounter type: initial encounter Qualified Code(s): T82.9XXA - Unspecified complication of cardiac and vascular prosthetic device, implant and graft, initial encounter Plan to address problem: Status post angioplasty and stent placement. Okay to use AV graft per Vascular. No problems reported with dialysis yesterday (3) Hypertensive emergency Current Visit: Yes Status: Acute Plan to address problem: Blood pressure elevated on presentation but is now better. Follow-up blood pressure (4) End stage renal disease on dialysis Current Visit: Yes Status: Chronic Plan to address problem: Patient tolerated dialysis with 3 L ultrafiltration yesterday. We will dialyze again today for solute clearance. 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 I reviewed multidisciplinary notes and discussed with staff and physicians as needed. Objective - Exam Narrative Exam: Patient was not examined at the bedside today due to personal protective equipment preservation during the COVID- pandemic - Vital Signs Vital signs: Vital Signs - 12hr 01/19/21 01/19/21 01/19/21 21:24 21:45 21:46 Temperature 98.2 F Pulse Rate 77 77 77 Pulse Rate [ Right Radial] Respiratory 16 Rate Blood Pressure 185/71 185/71 185/71 Blood Pressure [Right] O2 Sat by Pulse 97 Oximetry 01/19/21 01/20/21 01/20/21 21:47 00:00 02:00 Temperature Pulse Rate 77 77 Pulse Rate [ 77 Right Radial] Respiratory 18 Rate Blood Pressure 185/71 Blood Pressure 142/58 [Right] O2 Sat by Pulse Oximetry 01/20/21 01/20/21 04:35 06:23 Temperature 98.7 F Pulse Rate 60 59 L Pulse Rate [ Right Radial] Respiratory 18 Rate Blood Pressure 142/58 143/52 Blood Pressure [Right] O2 Sat by Pulse 98 Oximetry - Lab 01/19/21 14:23 01/19/21 14:23 Most recent lab results Calcium 8.2 mg/dL (8.4-10.2) L 01/19/21 14:23 Medications & Allergies - Medications Allergies/Adverse Reactions: Allergies acetaminophen [From Percocet] Allergy (Verified 07/13/20 14:52) Unknown oxycodone [From Percocet] Allergy (Verified 07/13/20 14:52) Unknown lisinopril Adverse Reaction (Verified 07/13/20 14:53) Unknown Home Medications: Home Medications Medication Instructions Recorded Confirmed Last Taken Type Aspirin [Adult Aspirin] 81 mg PO DAILY 07/13/20 07/13/20 Unknown History Atorvastatin Calcium [Lipitor] 10 mg PO DAILY 07/13/20 07/13/20 Unknown History Gabapentin [Neurontin] 200 mg PO Q2D 07/13/20 07/13/20 Unknown History Insulin Glargine [Lantus VIAL] 5 unit SUB-Q BID 07/13/20 07/13/20 Unknown History Tamsulosin [Flomax] 0.4 mg PO QDAY 07/13/20 07/13/20 Unknown History Venlafaxine [Effexor 25mg tab] 25 mg PO BID 07/13/20 07/13/20 Unknown History allopurinoL [Zyloprim] 100 mg PO QDAY 07/13/20 07/13/20 Unknown History cloNIDine [Catapres] 0.3 mg PO BID 07/13/20 07/13/20 Unknown History Famotidine [Pepcid] 10 mg PO BID tablet 07/19/20 Unknown Rx Metoprolol [Lopressor TAB] 50 mg PO BID tablet 07/19/20 Unknown Rx NIFEdipine XL [Procardia Xl] 60 mg PO Q12HR tablet 07/19/20 Unknown Rx Valsartan [Diovan] 160 mg PO Q12H tablet 07/19/20 Unknown Rx hydrALAZINE [Apresoline TAB] 50 mg PO Q8HR tablet 07/19/20 Unknown Rx Mupirocin [Bactroban 2% OINT] 1 applic NS BID tube 01/19/21 Unknown Rx Active Medications: Generic Name Dose Route Start Last Admin Trade Name Betoq PRN Reason Stop Dose Admin Allopurinol 100 mg 01/14/21 10:00 01/19/21 11:05 Allopurinol 100 Mg Tab PO 100 mg QDAY TAMAR Administration Aspirin 81 mg 01/14/21 10:00 01/19/21 13:00 Aspirin Ec 81 Mg Tab PO 81 mg DAILY TAMAR Administration Atorvastatin Calcium 10 mg 01/14/21 10:00 01/19/21 11:05 Atorvastatin 10 Mg Tab PO 10 mg DAILY TAMAR Administration Clonidine HCl 0.3 mg 01/14/21 02:00 01/19/21 21:47 Clonidine 0.1 Mg Tab PO 0.3 mg BID TAMAR Administration Famotidine 10 mg 01/14/21 10:00 01/19/21 21:46 Famotidine 10 Mg Tab PO 10 mg BID TAMAR Administration Gabapentin 200 mg 01/14/21 10:00 01/18/21 10:43 Gabapentin 100 Mg Cap PO 200 mg Q2D TAMAR Administration Hydralazine HCl 50 mg 01/14/21 02:00 01/20/21 04:35 Hydralazine 25 Mg Tab PO 50 mg Q8H TAMAR Administration Hydromorphone HCl 0.5 mg 01/13/21 21:23 01/13/21 21:32 Hydromorphone 1 Mg/1 Ml Inj IV 0.5 mg Q3H PRN Administration Pain , Severe (7-10) Sodium Chloride 100 mls @ 999 mls/hr 01/19/21 10:19 Nacl 0.9% IV RADHA PRN Hypotension Insulin Glargine 5 units 01/14/21 10:00 01/19/21 22:00 Insulin Glargine 100 Units/Ml SUB-Q Not Given BID [facility] Insulin Human Lispro 0 unit 01/14/21 07:30 01/20/21 07:56 Insulin Lispro 100 Unit/Ml SUB-Q Not Given ACHS [facility] Protocol Metoprolol Tartrate 50 mg 01/14/21 10:00 01/19/21 21:47 Metoprolol Tartrate 50 Mg Tab PO 50 mg BID TAMAR Administration Mupirocin 1 applic 01/15/21 22:00 01/19/21 21:44 Mupirocin 2% Oint 22 Gm NS 01/25/21 21:59 1 applic BID TAMAR Administration Nifedipine 60 mg 01/14/21 10:00 01/19/21 21:46 Nifedipine Xl 60 Mg Tab PO 60 mg Q12HR TAMAR Administration Tamsulosin HCl 0.4 mg 01/14/21 10:00 01/19/21 11:05 Tamsulosin 0.4 Mg Cap PO 0.4 mg QDAY TAMAR Administration Valsartan 160 mg 01/14/21 10:00 01/19/21 21:45 Valsartan 160mg Tab PO 160 mg Q12HR TAMAR Administration Venlafaxine HCl 25 mg 01/14/21 10:00 01/19/21 21:46 Venlafaxine 25 Mg Tab PO 25 mg BID TAMAR Administration
[2021-01-20] MEDS: cloNIDine 0.1 MG TAB PO SCH ×2 (09:57→23:07)
[2021-01-20] MEDS: TAMSULOSIN 0.4 MG CAP PO SCH (09:58)
[2021-01-20] MEDS: METOPROLOL TARTRATE 50 MG TAB PO SCH ×2 (09:58→23:06)
[2021-01-20] MEDS: VALSARTAN 160MG TAB PO SCH ×2 (09:58→23:07)
[2021-01-20] MEDS: NIFEdipine XL 60 MG TAB PO SCH ×2 (09:58→23:07)
[2021-01-20] MEDS: FAMOTIDINE 10 MG TAB PO SCH ×2 (09:58→23:06)
[2021-01-20] MEDS: GABAPENTIN 100 MG CAP PO SCH (09:58)
[2021-01-20] MEDS: allopurinoL 100 MG TAB PO SCH (09:58)
[2021-01-20] MEDS: INSULIN GLARGINE 100 UNITS/ML SUB-Q SCH ×2 (09:59→23:48)
[2021-01-20] MEDS: ASPIRIN EC 81 MG TAB PO SCH (10:03)
[2021-01-20] MEDS: VENLAFAXINE 25 MG TAB PO SCH ×2 (10:03→23:06)
[2021-01-20 11:03] LABS: Hematocrit 26.9 % (35.5-45.6); Hemoglobin 9.3 gm/dl (11.8-15.2); Mean Corpuscular HGB Conc 35 % (32-34); Mean Corpuscular Volume 94 fl (84-94); Platelet Count 342 K/mm3 (140-440); Red Blood Count 2.85 M/mm3 (3.65-5.03); Red Cell Distribution Width 18.9 % (13.2-15.2)
[2021-01-20] MEDS: MUPIROCIN 2% OINT 22 GM NS SCH ×2 (11:36→23:07)
--- NOTE | 2021-01-20 13:33 | Progress Note ---
Assessment and Plan Assessment and plan: (1) Hypertensive emergency Current Visit: Yes Status: Acute Plan to address problem: Resolved Continue BP medications (2) Anemia associated with acute blood loss Current Visit: Yes Status: Acute Plan to address problem: Monitor hemoglobin and hematocrit Bleeding controlled (3) Complication of AV dialysis fistula Current Visit: Yes Status: Acute Qualifiers: Encounter type: initial encounter Qualified Code(s): T82.9XXA - Unspecified complication of cardiac and vascular prosthetic device, implant and graft, initial encounter Plan to address problem: S/p fistulogram and angioplasty by IR (4) End stage renal disease on dialysis Current Visit: Yes Status: Chronic Plan to address problem: HD as scheduled (5) Insulin dependent diabetes mellitus Current Visit: Yes Status: Chronic Plan to address problem: Continue home insulin Coverage with Humalog as necessary Check hemoglobin A1c (6) Hyperlipidemia Current Visit: Yes Status: Chronic Qualifiers: Hyperlipidemia type: mixed hyperlipidemia Qualified Code(s): E78.2 - Mixed hyperlipidemia Plan to address problem: Continue statins (7) DVT prophylaxis Current Visit: No Status: Acute Plan to address problem: SCDs and GI prophylaxis for now 01/14. Patient to have a fistulogram today. Plan to DC after fistulogram today if cleared by IR 01/15. Fistulogram placed. Had HD. DCed 01/16. Facility is requesting for COVID prior to DC. COVID test ordered 01/17. Cleared for DC pending COVID result 01/18: No new complaints, awaiting placement, discussed with case management and also with the patient. 01/19: Discussed with dock pumper. Will obtain stat labs for BMP and also CBC. Anticipate discharge to [facility] after dialysis today. 01/20: Noted anemia with hemoglobin of 7.7 showing some improvement. Hyperkalemia noted yesterday awaiting repeat study following dialysis. Nephrology input is appreciated. Anticipate discharge once outpatient dialysis is established. History Interval history: Patient seen and examined resting comfortable, No new complaints. Awaiting placement. Underwent dialysis yesterday Hospitalist Physical - Physical exam Narrative exam: VITAL SIGNS: Reviewed. GENERAL: Awake HEAD: No signs of head trauma. EYES: Pupils are equal. Extraocular motions intact. MOUTH: Oropharynx is normal. NECK: No adenopathy, no JVD. CHEST: Chest with diminished breath sounds bilaterally. No wheezes, rales, or rhonchi. CARDIAC: normal S1 and S2, without murmurs, gallops, or rubs. ABDOMEN: Soft, non tender and non distended. No rebound or guarding, and no masses palpated. Bowel Sounds normal. MUSCULOSKELETAL: No edema NEUROLOGIC EXAM: Alert and oriented x3. No focal neurologic deficits SKIN: No obvious lesions - Constitutional Vitals: Temp Pulse Resp BP Pulse Ox 98.7 F 59 L 18 143/52 98 01/20/21 06:23 01/20/21 10:05 01/20/21 06:23 01/20/21 10:05 01/20/21 06:23 General appearance: Present: no acute distress HEART Score - HEART Score Age: > 65 Risk factors: > 3 risk factors or hx of atherosclerotic disease Troponin: < normal limit - Critical Actions Critical Actions: 0-3 pts:0.9-1.7%risk of adverse cardiac event.Candidate for discharge Results - Labs CBC & Chem 7: 01/20/21 10:38 01/19/21 14:23 Labs: Laboratory Last Values WBC 5.1 K/mm3 (4.5-11.0) 01/20/21 10:38 RBC 2.85 M/mm3 (3.65-5.03) L 01/20/21 10:38 Hgb 9.3 gm/dl (11.8-15.2) L 01/20/21 10:38 Hct 26.9 % (35.5-45.6) L 01/20/21 10:38 MCV 94 fl (84-94) 01/20/21 10:38 MCH 33 pg (28-32) H 01/20/21 10:38 MCHC 35 % (32-34) H 01/20/21 10:38 RDW 18.9 % (13.2-15.2) H 01/20/21 10:38 Plt Count 342 K/mm3 (140-440) 01/20/21 10:38 Lymph % (Auto) 17.4 % (13.4-35.0) 01/13/21 17:12 [place] % (Auto) 10.7 % (0.0-7.3) H 01/13/21 17:12 Eos % (Auto) 3.5 % (0.0-4.3) 01/13/21 17:12 Baso % (Auto) 0.3 % (0.0-1.8) 01/13/21 17:12 Lymph # (Auto) 0.8 K/mm3 (1.2-5.4) L 01/13/21 17:12 [place] # (Auto) 0.5 K/mm3 (0.0-0.8) 01/13/21 17:12 Eos # (Auto) 0.2 K/mm3 (0.0-0.4) 01/13/21 17:12 Baso # (Auto) 0.0 K/mm3 (0.0-0.1) 01/13/21 17:12 Seg Neutrophils % 68.1 % (40.0-70.0) 01/13/21 17:12 Seg Neutrophils # 3.0 K/mm3 (1.8-7.7) 01/13/21 17:12 PT 12.9 Sec. (12.2-14.9) 01/13/21 17:12 INR 0.99 (0.87-1.13) 01/13/21 17:12 APTT 36.5 Sec. (24.2-36.6) 01/13/21 17:12 Sodium 139 mmol/L (137-145) 01/19/21 14:23 Potassium 6.3 mmol/L (3.6-5.0) H* 01/19/21 14:23 Chloride 97.5 mmol/L (98-107) L 01/19/21 14:23 Carbon Dioxide 21 mmol/L (22-30) L 01/19/21 14:23 Anion Gap 27 mmol/L 01/19/21 14:23 BUN 95 mg/dL (9-20) H 01/19/21 14:23 Creatinine 13.4 mg/dL (0.8-1.3) H 01/19/21 14:23 Estimated GFR 4 ml/min 01/19/21 14:23 BUN/Creatinine Ratio 7 % 01/19/21 14:23 Glucose 116 mg/dL (75-100) H 01/19/21 14:23 POC Glucose 159 mg/dL (70-105) H 01/20/21 11:24 Calcium 8.2 mg/dL (8.4-10.2) L 01/19/21 14:23 Nasal Screen MRSA (PCR) Positive (Negative) 01/14/21 Unknown Coronavirus (PCR) Positive (Negative) A 01/16/21 10:10 Hepatitis A IgM Ab Non-reactive (NonReactive) 01/19/21 14:23 Hep Bs Antigen Non-reactive (Negative) 01/19/21 14:23 Hep B Core IgM Ab Non-reactive (NonReactive) 01/19/21 14:23 Hepatitis C Antibody Non-reactive (NonReactive) 01/19/21 14:23 [place]/IV: Voiding Method Condom Catheter Active Medications - Current Medications Current Medications: Generic Name Dose Route Start Last Admin Trade Name Freq PRN Reason Stop Dose Admin Allopurinol 100 mg 01/14/21 10:00 01/20/21 09:58 Allopurinol 100 Mg Tab PO 100 mg QDAY TAMAR Administration Aspirin 81 mg 01/14/21 10:00 01/20/21 10:03 Aspirin Ec 81 Mg Tab PO 81 mg DAILY TAMAR Administration Atorvastatin Calcium 10 mg 01/14/21 10:00 01/20/21 09:57 Atorvastatin 10 Mg Tab PO 10 mg DAILY TAMAR Administration Clonidine HCl 0.3 mg 01/14/21 02:00 01/20/21 09:57 Clonidine 0.1 Mg Tab PO 0.3 mg BID TAMAR Administration Famotidine 10 mg 01/14/21 10:00 01/20/21 09:58 Famotidine 10 Mg Tab PO 10 mg BID TAMAR Administration Gabapentin 200 mg 01/14/21 10:00 01/20/21 09:58 Gabapentin 100 Mg Cap PO 200 mg Q2D TAMAR Administration Hydralazine HCl 50 mg 01/14/21 02:00 01/20/21 10:05 Hydralazine 25 Mg Tab PO 50 mg Q8H TAMAR Administration Hydromorphone HCl 0.5 mg 01/13/21 21:23 01/13/21 21:32 Hydromorphone 1 Mg/1 Ml Inj IV 0.5 mg Q3H PRN Administration Pain , Severe (7-10) Sodium Chloride 100 mls @ 999 mls/hr 01/19/21 10:19 Nacl 0.9% IV RADHA PRN Hypotension Insulin Glargine 5 units 01/14/21 10:00 01/20/21 09:59 Insulin Glargine 100 Units/Ml SUB-Q Not Given BID [facility] Insulin Human Lispro 0 unit 01/14/21 07:30 01/20/21 12:46 Insulin Lispro 100 Unit/Ml SUB-Q 2 unit ACHS TAMAR Administration Protocol Metoprolol Tartrate 50 mg 01/14/21 10:00 01/20/21 09:58 Metoprolol Tartrate 50 Mg Tab PO 50 mg BID TAMAR Administration Mupirocin 1 applic 01/15/21 22:00 01/20/21 11:36 Mupirocin 2% Oint 22 Gm NS 01/25/21 21:59 Not Given BID TAMAR Nifedipine 60 mg 01/14/21 10:00 01/20/21 09:58 Nifedipine Xl 60 Mg Tab PO 60 mg Q12HR TAMAR Administration Tamsulosin HCl 0.4 mg 01/14/21 10:00 01/20/21 09:58 Tamsulosin 0.4 Mg Cap PO 0.4 mg QDAY TAMAR Administration Valsartan 160 mg 01/14/21 10:00 01/20/21 09:58 Valsartan 160mg Tab PO 160 mg Q12HR TAMAR Administration Venlafaxine HCl 25 mg 01/14/21 10:00 01/20/21 10:03 Venlafaxine 25 Mg Tab PO 25 mg BID TAMAR Administration Nutrition/Malnutrition Assess - Dietary Evaluation Nutrition/Malnutrition Findings: Nutrition Notes Start: 01/14/21 12:15 Freq: Status: Active Protocol: Document 01/18/21 14:12 CW (Rec: 01/18/21 14:17 CW [email or web address]) Nutrition Notes Initial or Follow up Assessment Current Diagnosis CKD (stage V CKD),Diabetes, Hypertension,Hyperlipidemia Other Pertinent Diagnosis Covid 19+, on HD Current Diet Consistent Carbohydrate Diet Labs/Tests last labs on 01/13/2021 Pertinent Medications reviewed Height 5 ft 9 in Weight 56.2 kg [place] Body Weight (kg) 72.72 BMI 18.3 Weight Status Underweight Subjective/Other Information F/U for stable intakes. Pt eating 75 - 100% of meals. Will recommend ONS QD for stbale weight gain towards adequate BMI Percent of energy/protein needs met: 100%/100% Burn Absent Trauma Absent Current % PO Good (75-100%) Minimum of two criteria No physical signs of malnutrition #1 Nutrition Diagnosis Underweight Etiology advanced age As Evidenced by Signs and Symptoms BMI of 18.3 with excellent PO intake Is patient on ventilator? No Is Patient Ambulatory and/or Out of Bed No REE-([facility]-confined to bed) [phone] Calculation Used for Recommendations [facility] Additional Notes protein needs: 56 - 67g (1 - 1 .2 g/kgBW) fluid needs: 1 ml/kcal Nutrition Intervention Change Diet Order: Continue current diet Add Supplement/Snack (indicate name/kcal Glucerna QD /protein ) Anticipated Discharge Needs: Consistent Carbohydrate Diet + ONS QD Follow-Up By: 01/21/21 Additional Comments F/U for PO intake
[2021-01-20] MEDS: HYDROmorphone 1 MG/1 ML INJ IV PRN ×2 (15:25→18:20)
[2021-01-20 21:21] LABS: Calcium 8.2 mg/dL (8.4-10.2)
[2021-01-21] MEDS: hydrALAZINE 25 MG TAB PO SCH ×3 (03:02→18:18)
--- NOTE | 2021-01-21 09:12 | Progress Note ---
Assessment and Plan - Patient Problems (1) Anemia associated with acute blood loss Current Visit: Yes Status: Acute Plan to address problem: Acute blood loss due to bleeding AV graft. Hemoglobin was 10 g/dL. Decreased to 7.7 g/dl 2 days ago but then improved to 9 g/dL yesterday. Continue erythropoietin on dialysis. Okay to discharge from renal standpoint to continue dialysis at his outpatient clinic (2) Complication of AV dialysis fistula Current Visit: Yes Status: Resolved Qualifiers: Encounter type: initial encounter Qualified Code(s): T82.9XXA - Unspecified complication of cardiac and vascular prosthetic device, implant and graft, initial encounter Plan to address problem: Status post angioplasty and stent placement. Okay to use AV graft per Vascular. No problems reported with dialysis the last 2 days (3) Hypertensive emergency Current Visit: Yes Status: Acute Plan to address problem: Blood pressure elevated on presentation but is now better. Follow-up blood pressure (4) End stage renal disease on dialysis Current Visit: Yes Status: Chronic Plan to address problem: Patient tolerated dialysis with 2.2 L ultrafiltration yesterday. Can resume dialysis at his outpatient clinic on discharge (5) Type 2 diabetes mellitus with diabetic chronic kidney disease Current Visit: No Status: Acute Plan to address problem: Blood sugar management by primary attending Subjective Date of service: 01/21/21 Principal diagnosis: End-stage renal disease with malfunctioning AV access Interval history: Patient was not evaluated at the bedside today due to the COVID-19 status to limit exposure of the consulting digital artist and also for PPE preservation during the COVID-19 pandemic. I reviewed multidisciplinary notes and discussed with staff and physicians as needed. Patient tolerated dialysis again yesterday. No problems with his access. Objective - Exam Narrative Exam: Patient was not examined at the bedside today due to personal protective equipment preservation during the COVID-19 pandemic - Vital Signs Vital signs: Vital Signs - 12hr 01/20/21 01/21/21 01/21/21 23:03 00:25 03:01 Temperature 98.0 F Pulse Rate 62 57 L 57 L Respiratory 18 18 Rate Blood Pressure Blood Pressure 120/44 138/57 [Right] O2 Sat by Pulse 95 95 Oximetry 01/21/21 06:57 Temperature 98.9 F Pulse Rate 60 Respiratory 20 Rate Blood Pressure 144/55 Blood Pressure [Right] O2 Sat by Pulse 98 Oximetry - Lab 01/20/21 10:38 01/20/21 20:51 Most recent lab results Calcium 8.2 mg/dL (8.4-10.2) L 01/20/21 20:51 Medications & Allergies - Medications Allergies/Adverse Reactions: Allergies acetaminophen [From Percocet] Allergy (Verified 07/13/20 14:52) Unknown oxycodone [From Percocet] Allergy (Verified 07/13/20 14:52) Unknown lisinopril Adverse Reaction (Verified 07/13/20 14:53) Unknown Home Medications: Home Medications Medication Instructions Recorded Confirmed Last Taken Type Aspirin [Adult Aspirin] 81 mg PO DAILY 07/13/20 07/13/20 Unknown History Atorvastatin Calcium [Lipitor] 10 mg PO DAILY 07/13/20 07/13/20 Unknown History Gabapentin [Neurontin] 200 mg PO Q2D 07/13/20 07/13/20 Unknown History Insulin Glargine [Lantus VIAL] 5 unit SUB-Q BID 07/13/20 07/13/20 Unknown History Tamsulosin [Flomax] 0.4 mg PO QDAY 07/13/20 07/13/20 Unknown History Venlafaxine [Effexor 25mg tab] 25 mg PO BID 07/13/20 07/13/20 Unknown History allopurinoL [Zyloprim] 100 mg PO QDAY 07/13/20 07/13/20 Unknown History cloNIDine [Catapres] 0.3 mg PO BID 07/13/20 07/13/20 Unknown History Famotidine [Pepcid] 10 mg PO BID tablet 07/19/20 Unknown Rx Metoprolol [Lopressor TAB] 50 mg PO BID tablet 07/19/20 Unknown Rx NIFEdipine XL [Procardia Xl] 60 mg PO Q12HR tablet 07/19/20 Unknown Rx Valsartan [Diovan] 160 mg PO Q12H tablet 07/19/20 Unknown Rx hydrALAZINE [Apresoline TAB] 50 mg PO Q8HR tablet 07/19/20 Unknown Rx Mupirocin [Bactroban 2% OINT] 1 applic NS BID tube 01/19/21 Unknown Rx Active Medications: Generic Name Dose Route Start Last Admin Trade Name Freq PRN Reason Stop Dose Admin Allopurinol 100 mg 01/14/21 10:00 01/20/21 09:58 Allopurinol 100 Mg Tab PO 100 mg QDAY [facility] Administration Aspirin 81 mg 01/14/21 10:00 01/20/21 10:03 Aspirin Ec 81 Mg Tab PO 81 mg DAILY TAMAR Administration Atorvastatin Calcium 10 mg 01/14/21 10:00 01/20/21 09:57 Atorvastatin 10 Mg Tab PO 10 mg DAILY TAMAR Administration Clonidine HCl 0.3 mg 01/14/21 02:00 01/20/21 23:07 Clonidine 0.1 Mg Tab PO Not Given BID [facility] Famotidine 10 mg 01/14/21 10:00 01/20/21 23:06 Famotidine 10 Mg Tab PO 10 mg BID [facility] Administration Gabapentin 200 mg 01/14/21 10:00 01/20/21 09:58 Gabapentin 100 Mg Cap PO 200 mg Q2D TAMAR Administration Hydralazine HCl 50 mg 01/14/21 02:00 01/21/21 03:02 Hydralazine 25 Mg Tab PO 50 mg Q8H TAMAR Administration Hydromorphone HCl 0.5 mg 01/13/21 21:23 01/20/21 18:20 Hydromorphone 1 Mg/1 Ml Inj IV 0.5 mg Q3H PRN Administration Pain , Severe (7-10) Sodium Chloride 100 mls @ 999 mls/hr 01/19/21 10:19 Nacl 0.9% IV RADHA PRN Hypotension Insulin Glargine 5 units 01/14/21 10:00 01/20/21 23:48 Insulin Glargine 100 Units/Ml SUB-Q Not Given BID [facility] Insulin Human Lispro 0 unit 01/14/21 07:30 01/20/21 23:48 Insulin Lispro 100 Unit/Ml SUB-Q Not Given ACHS [facility] Protocol Metoprolol Tartrate 50 mg 01/14/21 10:00 01/20/21 23:06 Metoprolol Tartrate 50 Mg Tab PO 50 mg BID [facility] Administration Mupirocin 1 applic 01/15/21 22:00 01/20/21 23:07 Mupirocin 2% Oint 22 Gm NS 01/25/21 21:59 1 applic BID [facility] Administration Nifedipine 60 mg 01/14/21 10:00 01/20/21 23:07 Nifedipine Xl 60 Mg Tab PO Not Given Q12HR [facility] Tamsulosin HCl 0.4 mg 01/14/21 10:00 01/20/21 09:58 Tamsulosin 0.4 Mg Cap PO 0.4 mg QDAY [facility] Administration Valsartan 160 mg 01/14/21 10:00 01/20/21 23:07 Valsartan 160mg Tab PO Not Given Q12HR [facility] Venlafaxine HCl 25 mg 01/14/21 10:00 01/20/21 23:06 Venlafaxine 25 Mg Tab PO 25 mg BID TAMAR Administration
[2021-01-21] MEDS: INSULIN LISPRO 100 UNIT/ML SUB-Q SCH ×3 (10:01→18:18)
[2021-01-21] MEDS: ASPIRIN EC 81 MG TAB PO SCH (10:03)
[2021-01-21] MEDS: METOPROLOL TARTRATE 50 MG TAB PO SCH (10:03)
[2021-01-21] MEDS: cloNIDine 0.1 MG TAB PO SCH (10:04)
[2021-01-21] MEDS: FAMOTIDINE 10 MG TAB PO SCH (10:04)
[2021-01-21] MEDS: allopurinoL 100 MG TAB PO SCH (10:04)
[2021-01-21] MEDS: VALSARTAN 160MG TAB PO SCH (10:04)
[2021-01-21] MEDS: TAMSULOSIN 0.4 MG CAP PO SCH (10:05)
[2021-01-21] MEDS: NIFEdipine XL 60 MG TAB PO SCH (10:08)
[2021-01-21] MEDS: INSULIN GLARGINE 100 UNITS/ML SUB-Q SCH (10:09)
[2021-01-21] MEDS: VENLAFAXINE 25 MG TAB PO SCH (10:09)
[2021-01-21] MEDS: MUPIROCIN 2% OINT 22 GM NS SCH (10:17)
--- NOTE | 2021-01-21 10:25 | Progress Note ---
Assessment and Plan Assessment and plan: (1) Hypertensive emergency Current Visit: Yes Status: Acute Plan to address problem: Resolved Continue BP medications (2) Anemia associated with acute blood loss Current Visit: Yes Status: Acute Plan to address problem: Monitor hemoglobin and hematocrit Bleeding controlled (3) Complication of AV dialysis fistula Current Visit: Yes Status: Acute Qualifiers: Encounter type: initial encounter Qualified Code(s): T82.9XXA - Unspecified complication of cardiac and vascular prosthetic device, implant and graft, initial encounter Plan to address problem: S/p fistulogram and angioplasty by IR (4) End stage renal disease on dialysis Current Visit: Yes Status: Chronic Plan to address problem: HD as scheduled (5) Insulin dependent diabetes mellitus Current Visit: Yes Status: Chronic Plan to address problem: Continue home insulin Coverage with Humalog as necessary Check hemoglobin A1c (6) Hyperlipidemia Current Visit: Yes Status: Chronic Qualifiers: Hyperlipidemia type: mixed hyperlipidemia Qualified Code(s): E78.2 - Mixed hyperlipidemia Plan to address problem: Continue statins (7) DVT prophylaxis Current Visit: No Status: Acute Plan to address problem: SCDs and GI prophylaxis for now 01/14. Patient to have a fistulogram today. Plan to DC after fistulogram today if cleared by IR 01/15. Fistulogram placed. Had HD. DCed 01/16. Facility is requesting for COVID prior to DC. COVID test ordered 01/17. Cleared for DC pending COVID result 01/18: No new complaints, awaiting placement, discussed with case management and also with the patient. 01/19: Discussed with tank systems maintainer. Will obtain stat labs for BMP and also CBC. Anticipate discharge to intermediate facility after dialysis today. 01/20: Noted anemia with hemoglobin of 7.7 showing some improvement. Hyperkalemia noted yesterday awaiting repeat study following dialysis. Nephrology input is appreciated. Anticipate discharge once outpatient dialysis is established. 01/21: Continue supportive care. Discussed with tank systems maintainer. Awaiting placement monitor mental status as patient had a bit of sundowning this morning although that has resolved. History Interval history: Patient seen and examined resting comfortable, No new complaints. Awaiting placement. Hospitalist Physical - Physical exam Narrative exam: VITAL SIGNS: Reviewed. Was a bit confused this morning but then resolved quickly GENERAL: Awake HEAD: No signs of head trauma. EYES: Pupils are equal. Extraocular motions intact. MOUTH: Oropharynx is normal. NECK: No adenopathy, no JVD. CHEST: Chest with diminished breath sounds bilaterally. No wheezes, rales, or rhonchi. CARDIAC: normal S1 and S2, without murmurs, gallops, or rubs. ABDOMEN: Soft, non tender and non distended. No rebound or guarding, and no masses palpated. Bowel Sounds normal. MUSCULOSKELETAL: No edema NEUROLOGIC EXAM: Alert and oriented x3. No focal neurologic deficits SKIN: No obvious lesions - Constitutional Vitals: Temp Pulse Resp BP Pulse Ox 98.9 F 60 20 140/68 98 01/21/21 06:57 01/21/21 06:57 01/21/21 06:57 01/21/21 10:04 01/21/21 06:57 General appearance: Present: no acute distress HEART Score - HEART Score Age: > 65 Risk factors: > 3 risk factors or hx of atherosclerotic disease Troponin: < normal limit - Critical Actions Critical Actions: 0-3 pts:0.9-1.7%risk of adverse cardiac event.Candidate for discharge Results - Labs CBC & Chem 7: 01/20/21 10:38 01/20/21 20:51 Labs: Laboratory Last Values WBC 5.1 K/mm3 (4.5-11.0) 01/20/21 10:38 RBC 2.85 M/mm3 (3.65-5.03) L 01/20/21 10:38 Hgb 9.3 gm/dl (11.8-15.2) L 01/20/21 10:38 Hct 26.9 % (35.5-45.6) L 01/20/21 10:38 MCV 94 fl (84-94) 01/20/21 10:38 MCH 33 pg (28-32) H 01/20/21 10:38 MCHC 35 % (32-34) H 01/20/21 10:38 RDW 18.9 % (13.2-15.2) H 01/20/21 10:38 Plt Count 342 K/mm3 (140-440) 01/20/21 10:38 Lymph % (Auto) 17.4 % (13.4-35.0) 01/13/21 17:12 [place] % (Auto) 10.7 % (0.0-7.3) H 01/13/21 17:12 Eos % (Auto) 3.5 % (0.0-4.3) 01/13/21 17:12 Baso % (Auto) 0.3 % (0.0-1.8) 01/13/21 17:12 Lymph # (Auto) 0.8 K/mm3 (1.2-5.4) L 01/13/21 17:12 [place] # (Auto) 0.5 K/mm3 (0.0-0.8) 01/13/21 17:12 Eos # (Auto) 0.2 K/mm3 (0.0-0.4) 01/13/21 17:12 Baso # (Auto) 0.0 K/mm3 (0.0-0.1) 01/13/21 17:12 Seg Neutrophils % 68.1 % (40.0-70.0) 01/13/21 17:12 Seg Neutrophils # 3.0 K/mm3 (1.8-7.7) 01/13/21 17:12 PT 12.9 Sec. (12.2-14.9) 01/13/21 17:12 INR 0.99 (0.87-1.13) 01/13/21 17:12 APTT 36.5 Sec. (24.2-36.6) 01/13/21 17:12 Sodium 137 mmol/L (137-145) 01/20/21 20:51 Potassium 3.8 mmol/L (3.6-5.0) D 01/20/21 20:51 Chloride 97.0 mmol/L (98-107) L 01/20/21 20:51 Carbon Dioxide 29 mmol/L (22-30) D 01/20/21 20:51 Anion Gap 15 mmol/L 01/20/21 20:51 BUN 19 mg/dL (9-20) 01/20/21 20:51 Creatinine 4.5 mg/dL (0.8-1.3) H D 01/20/21 20:51 Estimated GFR 13 ml/min 01/20/21 20:51 BUN/Creatinine Ratio 4 % 01/20/21 20:51 Glucose 95 mg/dL (75-100) 01/20/21 20:51 POC Glucose 125 mg/dL (70-105) H 01/21/21 07:42 Calcium 8.2 mg/dL (8.4-10.2) L 01/20/21 20:51 Nasal Screen MRSA (PCR) Positive (Negative) 01/14/21 Unknown Coronavirus (PCR) Positive (Negative) A 01/16/21 10:10 Hepatitis A IgM Ab Non-reactive (NonReactive) 01/19/21 14:23 Hep Bs Antigen Non-reactive (Negative) 01/19/21 14:23 Hep B Core IgM Ab Non-reactive (NonReactive) 01/19/21 14:23 Hepatitis C Antibody Non-reactive (NonReactive) 01/19/21 14:23 [place]/IV: Voiding Method Urinal Active Medications - Current Medications Current Medications: Generic Name Dose Route Start Last Admin Trade Name Freq PRN Reason Stop Dose Admin Allopurinol 100 mg 01/14/21 10:00 01/21/21 10:04 Allopurinol 100 Mg Tab PO 100 mg QDAY TAMAR Administration Aspirin 81 mg 01/14/21 10:00 01/21/21 10:03 Aspirin Ec 81 Mg Tab PO 81 mg DAILY [facility]AR Administration Atorvastatin Calcium 10 mg 01/14/21 10:00 01/21/21 10:04 Atorvastatin 10 Mg Tab PO 10 mg DAILY [facility]AR Administration Clonidine HCl 0.3 mg 01/14/21 02:00 01/21/21 10:04 Clonidine 0.1 Mg Tab PO 0.3 mg BID TAMAR Administration Famotidine 10 mg 01/14/21 10:00 01/21/21 10:04 Famotidine 10 Mg Tab PO 10 mg BID [facility]AR Administration Gabapentin 200 mg 01/14/21 10:00 01/20/21 09:58 Gabapentin 100 Mg Cap PO 200 mg Q2D [facility]AR Administration Hydralazine HCl 50 mg 01/14/21 02:00 01/21/21 10:20 Hydralazine 25 Mg Tab PO 50 mg Q8H [facility] Administration Hydromorphone HCl 0.5 mg 01/13/21 21:23 01/20/21 18:20 Hydromorphone 1 Mg/1 Ml Inj IV 0.5 mg Q3H PRN Administration Pain , Severe (7-10) Sodium Chloride 100 mls @ 999 mls/hr 01/19/21 10:19 Nacl 0.9% IV RADHA PRN Hypotension Insulin Glargine 5 units 01/14/21 10:00 01/21/21 10:09 Insulin Glargine 100 Units/Ml SUB-Q 5 units BID [facility]AMAR Administration Insulin Human Lispro 0 unit 01/14/21 07:30 01/21/21 10:01 Insulin Lispro 100 Unit/Ml SUB-Q Not Given ACHS [facility] Protocol Metoprolol Tartrate 50 mg 01/14/21 10:00 01/21/21 10:03 Metoprolol Tartrate 50 Mg Tab PO 50 mg BID [facility]AR Administration Mupirocin 1 applic 01/15/21 22:00 01/21/21 10:17 Mupirocin 2% Oint 22 Gm NS 01/25/21 21:59 1 applic BID [facility] Administration Nifedipine 60 mg 01/14/21 10:00 01/21/21 10:08 Nifedipine Xl 60 Mg Tab PO 60 mg Q12HR [facility] Administration Tamsulosin HCl 0.4 mg 01/14/21 10:00 01/21/21 10:05 Tamsulosin 0.4 Mg Cap PO 0.4 mg QDAY [facility]AR Administration Valsartan 160 mg 01/14/21 10:00 01/21/21 10:04 Valsartan 160mg Tab PO 160 mg Q12HR [facility]AR Administration Venlafaxine HCl 25 mg 01/14/21 10:00 01/21/21 10:09 Venlafaxine 25 Mg Tab PO 25 mg BID TAMAR Administration Nutrition/Malnutrition Assess - Dietary Evaluation Nutrition/Malnutrition Findings: Nutrition Notes Start: 01/14/21 12:15 Freq: Status: Active Protocol: Document 01/18/21 14:12 CW (Rec: 01/18/21 14:17 CW [id number]) Nutrition Notes Initial or Follow up Assessment Current Diagnosis CKD (stage V CKD),Diabetes, Hypertension,Hyperlipidemia Other Pertinent Diagnosis Covid 19+, on HD Current Diet Consistent Carbohydrate Diet Labs/Tests last labs on 01/13/2021 Pertinent Medications reviewed Height 5 ft 9 in Weight 56.2 kg [place] Body Weight (kg) 72.72 BMI 18.3 Weight Status Underweight Subjective/Other Information F/U for stable intakes. Pt eating 75 - 100% of meals. Will recommend ONS QD for [place] weight gain towards adequate BMI Percent of energy/protein needs met: 100%/100% Burn Absent Trauma Absent Current % PO Good (75-100%) Minimum of two criteria No physical signs of malnutrition #1 Nutrition Diagnosis Underweight Etiology advanced age As Evidenced by Signs and Symptoms BMI of 18.3 with excellent PO intake Is patient on ventilator? No Is Patient Ambulatory and/or Out of Bed No REE-([facility]-confined to bed) [phone] Calculation Used for Recommendations [facility] Additional Notes protein needs: 56 - 67g (1 - 1 .2 g/kgBW) fluid needs: 1 ml/kcal Nutrition Intervention Change Diet Order: Continue current diet Add Supplement/Snack (indicate name/kcal Glucerna QD /protein ) Anticipated Discharge Needs: Consistent Carbohydrate Diet + ONS QD Follow-Up By: 01/21/21 Additional Comments F/U for PO intake
--- NOTE | 2021-01-21 12:50 | Cat Scan Report ---
CT head/brain wo con INDICATION: ams. TECHNIQUE: Routine CT head. All CT scans at this location are performed using CT dose reduction for A JONAS by means of automated exposure control. COMPARISON: 07/13/2020 FINDINGS: Intracranial: Monique-white matter differentiation is maintained. No intracranial hemorrhage. No extra a xial collection. No hydrocephalus. No herniation. Generalized atrophy. Periventricular and centrum se [place] white matter hypoattenuation most consistent with sequela of chronic microvascular disease. R emote left caudate lacunar infarction is unchanged. Sinuses: Paranasal sinuses and mastoid air cells are essentially clear. Orbits: Globes are intact. Calvarium: No acute fracture. IMPRESSION: 1. No acute intracranial abnormality. Signer Name: Brown Kemp MD Signed: 01/21/2021 12:43 PM Workstation Name: [id number]
[2021-01-21 19:49] VITALS: BP 149/58
== END 2021-01-21 19:55 | DRG 252 ==
LOC: ED 16:50 → 4A 19:58 → 3A 01-17 21:55 → OBSVTOIN 01-18 13:35
PROVIDERS: ADMIT Internal Medicine; ATTEND Internal Medicine
PROC: B51W1ZZ Fluoroscopy of Dialysis Shunt/Fistula using Low Osmolar Contrast (ICD-10-PCS; principal; 2021-01-14)
PROC: 037834Z Dilation of Left Brachial Artery with Drug-eluting Intraluminal Device, Percutaneous Approach (ICD-10-PCS; 2021-01-14)
PROC: 03C83ZZ Extirpation of Matter from Left Brachial Artery, Percutaneous Approach (ICD-10-PCS; 2021-01-14)
PROC: B41G1ZZ Fluoroscopy of Left Lower Extremity Arteries using Low Osmolar Contrast (ICD-10-PCS; 2021-01-14)
PROC: 5A1D70Z Performance of Urinary Filtration, Intermittent, Less than 6 Hours Per Day (ICD-10-PCS; 2021-01-19)
PROC: 5A1D70Z Performance of Urinary Filtration, Intermittent, Less than 6 Hours Per Day (ICD-10-PCS; 2021-01-20)
DX: T82.898A Other specified complication of vascular prosthetic devices, implants and grafts, initial encounter (principal); N18.6 End stage renal disease; D62 Acute posthemorrhagic anemia; I16.1 Hypertensive emergency; I12.0 Hypertensive chronic kidney disease with stage 5 chronic kidney disease or end stage renal disease; R55 Syncope and collapse; E11.42 Type 2 diabetes mellitus with diabetic polyneuropathy; N40.0 Benign prostatic hyperplasia without lower urinary tract symptoms; M10.9 Gout, unspecified; F03.90 Unspecified dementia, unspecified severity, without behavioral disturbance, psychotic disturbance, mood disturbance, and anxiety; E11.22 Type 2 diabetes mellitus with diabetic chronic kidney disease; Y84.1 Kidney dialysis as the cause of abnormal reaction of the patient, or of later complication, without mention of misadventure at the time of the procedure; E78.5 Hyperlipidemia, unspecified; F43.10 Post-traumatic stress disorder, unspecified; Z88.8 Allergy status to other drugs, medicaments and biological substances; Z99.2 Dependence on renal dialysis; Z79.899 Other long term (current) drug therapy; Z79.891 Long term (current) use of opiate analgesic; Z79.01 Long term (current) use of anticoagulants; Z88.5 Allergy status to narcotic agent; Z86.718 Personal history of other venous thrombosis and embolism; Y92.89 Other specified places as the place of occurrence of the external cause; Z79.4 Long term (current) use of insulin; Z90.49 Acquired absence of other specified parts of digestive tract
CPT/HCPCS: 36415; 36906; 70450; 80048; 80074; 82962; 85025; 85027; 85610; 85730; 87641; 96365; 96375; G0378; A9270-GY; C1725; C1757; C1769; C1874; C1894; J0360; J0885; J1170; J1644; J1815; J2250; J2270; J2405; J2597; J2997; J3010; J7030; Q9967; U0003

== ENCOUNTER 2022-03-04 14:55 | Inpatient (IN) | payer OTHER, MEDICARE ==
--- NOTE | 2022-03-04 15:44 | Emergency Department Report ---
HPI - General Chief Complaint: Dyspnea/Respdistress Time Seen by Provider: 03/04/22 15:24 - HPI HPI: Room 24 The patient is a 76-year-old male present with a chief complaint of choking. The patient had finished receiving hemodialysis at his dialysis center and was eating a turkey sandwich when he began to choke. EMS was called and Heimlich maneuver was performed. When EMS arrived on scene they state the patient had agonal respirations approximately 4 breaths/min and he was unresponsive. EMS was able to use direct laryngoscopy and he states he removed approximate one half of a turkey sandwich from the patient's oropharynx and then placed the patient on a nonrebreather. The patient gradually began to become more alert and upon arrival to the ED has a GCS of 15 and does not require supplemental O2. Patient only complains of feeling tired at this time. ED Past Medical Hx - Past Medical History Previous Medical History?: Yes Hx Hypertension: Yes Hx Congestive Heart Failure: Yes Hx Diabetes: Yes Hx Deep Vein Thrombosis: Yes Hx Renal Disease: Yes Hx Asthma: Yes Hx Dementia: Yes Additional medical history: cholangio carcinoma - Surgical History Additional Surgical History: AV fistula left bicep - Family History Family history: no significant - Social History Smoking Status: Never Smoker Substance Use Type: None - Medications Home Medications: Home Medications Medication Instructions Recorded Confirmed Last Taken Type Aspirin [Adult Aspirin] 81 mg PO DAILY 07/13/20 07/13/20 Unknown History Atorvastatin Calcium [Lipitor] 10 mg PO DAILY 07/13/20 07/13/20 Unknown History Gabapentin [Neurontin] 200 mg PO Q2D 07/13/20 07/13/20 Unknown History Insulin Glargine [Lantus VIAL] 5 unit SUB-Q BID 07/13/20 07/13/20 Unknown History Tamsulosin [Flomax] 0.4 mg PO QDAY 07/13/20 07/13/20 Unknown History Venlafaxine [Effexor 25mg tab] 25 mg PO BID 07/13/20 07/13/20 Unknown History allopurinoL [Zyloprim] 100 mg PO QDAY 07/13/20 07/13/20 Unknown History cloNIDine [Catapres] 0.3 mg PO BID 07/13/20 07/13/20 Unknown History Famotidine [Pepcid] 10 mg PO BID tablet 10/26/20 Unknown Rx Metoprolol [Lopressor TAB] 50 mg PO BID tablet 07/19/20 Unknown Rx NIFEdipine XL [Procardia Xl] 60 mg PO Q12HR tablet 07/19/20 Unknown Rx Valsartan [Diovan] 160 mg PO Q12H tablet 07/19/20 Unknown Rx hydrALAZINE [Apresoline TAB] 50 mg PO Q8HR tablet 07/19/20 Unknown Rx Mupirocin [Bactroban 2% OINT] 1 applic NS BID tube 01/19/21 Unknown Rx ED Review of Systems ROS: Stated complaint: CHOKED ON A SANDWICH Other details as noted in HPI Constitutional: other (Feels tired) Eyes: denies: eye pain ENT: denies: throat pain Respiratory: no symptoms reported Cardiovascular: denies: chest pain Endocrine: no symptoms reported Gastrointestinal: denies: abdominal pain Genitourinary: denies: dysuria Musculoskeletal: denies: back pain Neurological: denies: headache Physical Exam - Physical Exam Vital Signs: Vital Signs 03/04/22 14:59 Temperature 98.1 F Pulse Rate 114 H Respiratory 16 Rate Blood Pressure 173/97 [Left] O2 Sat by Pulse 100 Oximetry Physical Exam: GENERAL: The patient is well-developed well-nourished male lying on stretcher not appearing to be in acute distress. [] HEENT: Normocephalic. Atraumatic. Extraocular motions are intact. Patient has moist mucous membranes. NECK: Supple. No stridor CHEST/LUNGS: Clear to auscultation. There is no respiratory distress noted. HEART/CARDIOVASCULAR: Regular. There is no tachycardia. There is no gallop rub or murmur. ABDOMEN: Abdomen is soft, nontender. Patient has normal bowel sounds. There is no abdominal distention. SKIN: There is no rash. There is no edema. There is no diaphoresis. NEURO: The patient is awake, alert, and oriented. The patient is cooperative. The patient has no focal neurologic deficits. The patient has normal speech. GCS 15 MUSCULOSKELETAL:There is no evidence of acute injury. ED Course Vital Signs 03/04/22 14:59 Temperature 98.1 F Pulse Rate 114 H Respiratory 16 Rate Blood Pressure 173/97 [Left] O2 Sat by Pulse 100 Oximetry - Consultations Consultation #1: 03/04/22 18:19 Consult placed to nephrology ED Medical Decision Making - Lab Data Result diagrams: 03/04/22 15:56 03/04/22 15:56 Laboratory Tests 03/04/22 03/04/22 15:56 15:56 WBC 9.0 RBC 3.61 L Hgb 9.9 L Hct 30.9 L MCV 86 MCH 27 L MCHC 32 RDW 18.3 H Plt Count 219 Lymph % (Auto) 4.1 L [place] % (Auto) 7.7 H Eos % (Auto) 0.7 Baso % (Auto) 0.2 Lymph # (Auto) 0.4 L [place] # (Auto) 0.7 Eos # (Auto) 0.1 Baso # (Auto) 0.0 Seg Neutrophils % 87.3 H Seg Neutrophils # 7.8 H Sodium 141 Potassium 3.5 L Chloride 95.9 L Carbon Dioxide 25 Anion Gap 24 BUN 34 H Creatinine 4.6 H Estimated GFR 12 BUN/Creatinine Ratio 7 Glucose 177 H Calcium 8.9 Total Creatine Kinase 216 H CK-MB (CK-2) 3.6 CK-MB (CK-2) Rel Index 1.6 Troponin T 0.299 H* - EKG Data -: EKG Interpreted by Me EKG shows normal: sinus rhythm Rate: normal - EKG Data When compared to previous EKG there are: previous EKG unavailable Interpretation: nonspecific ST-T wave kalia (T wave inversions in leads I and aVL) - Radiology Data Radiology results: report reviewed (Chest x-ray), image reviewed (Chest x-ray) interpreted by me: Chest x-ray-no definite focal infiltrates, no pneumothorax [facility] [address] [place] [address] XRay Report Signed Patient: SHARON SIM JR MR#: [id number] : 1945 Acct:[id number] Age/Sex: 76 / M ADM Date: 03/04/22 Loc: ED Attending Dr: Ordering Physician: CAROLINE ABRAHAM MD Date of Service: 03/04/22 Procedure(s): XR chest 1V ap Accession Number(s): [id number] cc: CAROLINE ABRAHAM MD Fluoro Time In Minutes: CHEST 1 VIEW 03/04/2022 2:51 PM INDICATION / CLINICAL INFORMATION: Sta tus post choking on sandwich. COMPARISON: 07/13/20 FINDINGS: SUPPORT DEVICES: Right PermCath projects over the cavoatrial junction. HEART / MEDIASTINUM: Heart is normal size and stable. LUNGS / PLEURA: No significant pulmonary or pleural abnormality. No pneumothorax. ADDITIONAL FINDINGS: Defibrillator pad over the right chest wall. IMPRESSION: 1. No acute findings. Signer Name: Bora Tejada MD Signed: 03/04/2022 4:00 PM Workstation Name: [id number] Transcribed By: DT Dictated By: Antonio Tejada MD Electronically Authenticated By: Antonio Tejada MD Signed Date/Time: 03/04/22 1600 DD/ 1559 TD/TT: - Differential Diagnosis Choking Critical care attestation.: If time is entered above; I have spent that time in minutes in the direct care of this critically ill patient, excluding procedure time. ED Disposition Clinical Impression: Choking due to food in larynx, ESRD (end stage renal disease) Disposition: ADMITTED INPATIENT Is pt being admited?: Yes Does the pt Need Aspirin: Yes Condition: Fair Time of Disposition: 17:26 (Care transferred to hospitalist (Dr. Wisdom))
--- NOTE | 2022-03-04 16:04 | XRay Report ---
CHEST 1 VIEW 03/04/2022 2:51 PM INDICATION / CLINICAL INFORMATION: Status post choking on sandwich. COMPARISON: 07/13/20 FINDINGS: SUPPORT DEVICES: Right PermCath projects over the cavoatrial junction. HEART / MEDIASTINUM: Heart is normal size and stable. LUNGS / PLEURA: No significant pulmonary or pleural abnormality. No pneumothorax. ADDITIONAL FINDINGS: Defibrillator pad over the right chest wall. IMPRESSION: 1. No acute findings. Signer Name: Bora Tejada MD Signed: 03/04/2022 4:00 PM Workstation Name: [id number]
[2022-03-04 16:29] LABS: Basophils % (Auto) 0.2 % (0.0-1.8); Eosinophils # (Auto) 0.1 K/mm3 (0.0-0.4); Eosinophils % (Auto) 0.7 % (0.0-4.3); Hematocrit 30.9 % (35.5-45.6); Hemoglobin 9.9 gm/dl (11.8-15.2); Lymphocytes # (Auto) 0.4 K/mm3 (1.2-5.4); Lymphocytes % (Auto) 4.1 % (13.4-35.0); Mean Corpuscular HGB Conc 32 % (32-34); Mean Corpuscular Volume 86 fl (84-94); Monocytes # (Auto) 0.7 K/mm3 (0.0-0.8); Monocytes % (Auto) 7.7 % (0.0-7.3); Platelet Count 219 K/mm3 (140-440); Red Blood Count 3.61 M/mm3 (3.65-5.03); Red Cell Distribution Width 18.3 % (13.2-15.2)
[2022-03-04 16:51] LABS: Creatine Kinase MB 3.6 ng/mL (0.0-4.0)
[2022-03-04 16:53] LABS: Calcium 8.9 mg/dL (8.4-10.2)
[2022-03-04] MEDS ORDERED: ASPIRIN 325 MG TAB PO ONE (17:26)
[2022-03-04 17:35] LABS: Chol/HDL Ratio 2.02 %
--- NOTE | 2022-03-04 18:20 | History and Physical Report ---
History of Present Illness Chief complaint: Unresponsive History of present illness: 76 YO Male with ESRD on HD(T,R,Sa), HTN, DM, Vascular Dementia, Cerebral Atherosclerosis, DVT, Biliary Malignancy presents to ED for evaluation. Patient is lethargic with diminished cognition at the time of my evaluation and is unabl e to provide history. Patient history taken EMS staff, ED staff, as well as dialysis center staff. As per staff the patient was eating a turkey sandwich shortly after completing his hemodialysis session today. Patient subsequently began choking and subsequently lost consciousness. The Heimlich maneuver was performed by dialysis center staff without improvement. EMS was notified and upon arrival the patient was found to be in distress with agonal respirations. EMS was able to use direct laryngoscopy and removed a turkey sandwich from the patient's oropharynx. Patient was found to have a pulse oximetry of 78% on room air and was placed on supplemental oxygen and transported to [facility] for further care and evaluation of the aforementioned symptoms. The patient was seen and evaluated in the emergency department. All lab and imaging studies reviewed. Patient found to have end-stage renal disease, asphyxiation The patient is a 76-year-old male present with a chief complaint of choking. The patient had finished receiving hemodialysis at his dialysis center and was eating a turkey sandwich when he began to choke. EMS was called and Heimlich maneuver was performed. When EMS arrived on scene they state the patient had agonal respirations approximately 4 breaths/min and he was unresponsive. EMS was able to use direct laryngoscopy and he states he removed approximate one half of a turkey sandwich from the patient's oropharynx and then placed the patient on a nonrebreather. The patient gradually began to become more alert and upon arrival to the ED has a GCS of 15 and does not require supplemental O2. Patient only complains of feeling tired at this time. ED Past Medical Hx - Past Medical History Previous Medical History?: Yes Hx Hypertension: Yes Hx Congestive Heart Failure: Yes Hx Diabetes: Yes Hx Deep Vein Thrombosis: Yes Hx Renal Disease: Yes Hx Asthma: Yes Hx Dementia: Yes Additional medical history: cholangio carcinoma - Surgical History Additional Surgical History: AV fistula left bicep - Family History Family history: no significant - Social History Smoking Status: Never Smoker Substance Use Type: None 75-year-old male with history of end-stage renal disease on hemodialysis on Tuesdays and Saturdays, hypertension and peripheral neuropathy, BPH and gout presents with continuous bleeding from left arm AV fistula. After completing dialysis the leg was removed and copious amount of BPH. Patient was breathing for approximately an hour. Clamp was placed prior to the fire department and the first responders. Initially blood pressure was 170/110 per EMS. Patient had a near syncopal episode with decreased level of consciousness and blood pressure dropped to 90/40 at that time. Patient received IV fluids by EMS. Patient is back to baseline mental status at the time of admission to the emergency room. In the emergency room blood pressure was controlled with a Yves wrap around the AV fistula. Patient being admitted for AV fistulogram and correction of the bleeding site if necessary. Vascular surgery was consulted. Dr. Virk consulted. Patient to be n.p.o. from midnight. - Past Medical History Previous Medical History?: Yes --Hypertension: Yes --Diabetes: Yes --Deep Vein Thrombosis: Yes --Renal Disease: Yes --Dementia: Yes Additional medical history: cholangio carcinoma - Surgical History Past Surgical History?: Yes Additional Surgical History: AV fistula left bicep - Social History Smoking Status: Never Smoker Medications and Allergies Allergies Allergy/AdvReac Type Severity Reaction Status Date / Time acetaminophen [From Percocet] Allergy Unknown Verified 03/04/22 15:06 oxycodone [From Percocet] Allergy Unknown Verified 03/04/22 15:06 lisinopril AdvReac Unknown Verified 03/04/22 15:06 Home Medications Medication Instructions Recorded Confirmed Last Taken Type Aspirin [Adult Aspirin] 81 mg PO DAILY 07/13/20 07/13/20 Unknown History Atorvastatin Calcium [Lipitor] 10 mg PO DAILY 07/13/20 07/13/20 Unknown History Gabapentin [Neurontin] 200 mg PO Q2D 07/13/20 07/13/20 Unknown History Insulin Glargine [Lantus VIAL] 5 unit SUB-Q BID 07/13/20 07/13/20 Unknown History Tamsulosin [Flomax] 0.4 mg PO QDAY 07/13/20 07/13/20 Unknown History Venlafaxine [Effexor 25mg tab] 25 mg PO BID 07/13/20 07/13/20 Unknown History allopurinoL [Zyloprim] 100 mg PO QDAY 07/13/20 07/13/20 Unknown History cloNIDine [Catapres] 0.3 mg PO BID 07/13/20 07/13/20 Unknown History Famotidine [Pepcid] 10 mg PO BID tablet 07/19/20 Unknown Rx Metoprolol [Lopressor TAB] 50 mg PO BID tablet 07/19/20 Unknown Rx NIFEdipine XL [Procardia Xl] 60 mg PO Q12HR tablet 07/19/20 Unknown Rx Valsartan [Diovan] 160 mg PO Q12H tablet 07/19/20 Unknown Rx hydrALAZINE [Apresoline TAB] 50 mg PO Q8HR tablet 07/19/20 Unknown Rx Mupirocin [Bactroban 2% OINT] 1 applic NS BID tube 01/19/21 Unknown Rx Exam - Constitutional Vitals: Temp Pulse Resp BP Pulse Ox 98.1 F 92 H 14 146/66 93 03/04/22 14:59 03/04/22 15:46 03/04/22 15:46 03/04/22 15:46 03/04/22 15:46 HEART Score - HEART Score Troponin: Troponin T 0.299 ng/mL (0.00-0.029) H* 03/04/22 15:56 Results - Labs CBC & Chem 7: 03/04/22 15:56 03/04/22 15:56 Labs: Abnormal lab results 03/04/22 03/04/22 Range/Units 15:56 15:56 RBC 3.61 L (3.65-5.03) M/mm3 Hgb 9.9 L (11.8-15.2) gm/dl Hct 30.9 L (35.5-45.6) % MCH 27 L (28-32) pg RDW 18.3 H (13.2-15.2) % Lymph % (Auto) 4.1 L (13.4-35.0) % [place] % (Auto) 7.7 H (0.0-7.3) % Lymph # (Auto) 0.4 L (1.2-5.4) K/mm3 Seg Neutrophils % 87.3 H (40.0-70.0) % Seg Neutrophils # 7.8 H (1.8-7.7) K/mm3 Potassium 3.5 L (3.6-5.0) mmol/L Chloride 95.9 L (98-107) mmol/L BUN 34 H (9-20) mg/dL Creatinine 4.6 H (0.8-1.3) mg/dL Glucose 177 H (75-100) mg/dL Total Creatine Kinase 216 H (55-170) units/L Troponin T 0.299 H* (0.00-0.029) ng/mL LDL Cholesterol Direct 41 L (50-130) mg/dL Assessment and Plan - Patient Problems (1) Asphyxiation due to food in respiratory tract Current Visit: Yes Status: Acute Qualifiers: Encounter type: initial encounter Qualified Code(s): T17.920A - Food in respiratory tract, part unspecified causing asphyxiation, initial encounter Plan to address problem: Chest x-ray, supplemental oxygen, pulse oximetry, aspiration precautions, neuro check, supportive care. (2) Acidosis Current Visit: Yes Status: Acute Plan to address problem: Supportive care, BMP, repeat BMP in a.m., dialysis as per renal team. (3) Accelerated hypertension Current Visit: Yes Status: Acute Plan to address problem: Monitor blood pressure every shift, continue medical management, IV hydralazine every 6 hours as needed for systolic blood pressure greater than or equal to 155 mmHg. (4) DVT prophylaxis Current Visit: Yes Status: Acute Plan to address problem: SCD to bilateral lower extremities while in bed (5) Advance care planning Current Visit: Yes Status: Acute Plan to address problem: Disease education data, care plan discussed, diagnoses discussed, prognosis discussed, patient full code, +30 minutes. (6) ESRD (end stage renal disease) Current Visit: Yes Status: Acute Plan to address problem: Patient family counseled regarding home safety, aspiration precautions, outpatient follow-up with primary care physician for all age and risk factor appropriate screening tests, as well as dementia screening. +30 minutes.
[2022-03-04] MEDS ORDERED: oxyCODONE /ACETAMINOPHEN 5-325MG TAB PO PRN (18:28)
[2022-03-04] MEDS ORDERED: HYDROmorphone 0.5 MG/0.5 ML INJ IV PRN (18:28)
[2022-03-04] MEDS ORDERED: ONDANSETRON 4 MG/2 ML INJ IV PRN (18:28)
[2022-03-04] MEDS ORDERED: ACETAMINOPHEN 325 MG TAB PO PRN (18:28)
[2022-03-04] MEDS ORDERED: ALBUTEROL 2.5 MG/3 ML NEBU IH PRN (18:28)
[2022-03-04] MEDS: VALSARTAN 160MG TAB PO SCH (20:36)
[2022-03-04] MEDS: hydrALAZINE 25 MG TAB PO SCH (22:05)
[2022-03-04] MEDS: METOPROLOL TARTRATE 50 MG TAB PO SCH (22:07)
[2022-03-04] MEDS: cloNIDine 0.1 MG TAB PO SCH (22:08)
[2022-03-04] MEDS: FAMOTIDINE 10 MG TAB PO SCH (22:08)
[2022-03-05] MEDS: VENLAFAXINE 25 MG TAB PO SCH ×3 (00:31→21:04)
[2022-03-05] MEDS: NIFEdipine XL 60 MG TAB PO SCH ×3 (00:31→21:03)
[2022-03-05] MEDS: hydrALAZINE 25 MG TAB PO SCH ×3 (06:06→21:04)
[2022-03-05 06:41] LABS: Calcium 8.6 mg/dL (8.4-10.2)
[2022-03-05] MEDS: VALSARTAN 160MG TAB PO SCH ×2 (08:04→22:50)
--- NOTE | 2022-03-05 08:43 | Consultation ---
History of Present Illness - Reason for Consult end stage renal disease - History of Present Illness Pleasantly demented 76-year-old ill-appearing -[place]ut[place] male with a past medical history of hypertension, diabetes, and end-stage renal disease, who is on a current Sunday//Sunday hemodialysis schedule, presented to the emergency department after choking on a turkey sandwich after his dialysis treatment. Apparently Heimlich maneuver was applied by staff without any improvement. EMS was called and apparently had to do a laryngoscopy in order to retrieve a piece of turkey sandwich from the patient. Nephrology consulted secondary to dialysis needs. Labs reviewed with no acute needs for hemodialysis at this time as again he had finished his treatment prior to the episode. Patient is a very poor historian likely secondary to his underlying dementia. Much of the history is obtained from review of records at this time. He is utilizing a right IJ permacath at this time for his dialysis needs. Seems that his left upper extremity AV fistula is clotted off at this time. Past History Past Medical History: diabetes, dialysis, hypertension, hyperlipidemia Past Surgical History: Other (AV fistula creation.) Social history: no significant social history Family history: no significant family history Medications and Allergies Allergies Allergy/AdvReac Type Severity Reaction Status Date / Time acetaminophen [From Percocet] Allergy Unknown Verified 03/04/22 15:06 oxycodone [From Percocet] Allergy Unknown Verified 03/04/22 15:06 lisinopril AdvReac Unknown Verified 03/04/22 15:06 Home Medications Medication Instructions Recorded Confirmed Last Taken Type Aspirin [Adult Aspirin] 81 mg PO DAILY 07/13/20 07/13/20 Unknown History Atorvastatin Calcium [Lipitor] 10 mg PO DAILY 07/13/20 07/13/20 Unknown History Gabapentin [Neurontin] 200 mg PO Q2D 07/13/20 07/13/20 Unknown History Insulin Glargine [Lantus VIAL] 5 unit SUB-Q BID 07/13/20 07/13/20 Unknown History Tamsulosin [Flomax] 0.4 mg PO QDAY 07/13/20 07/13/20 Unknown History Venlafaxine [Effexor 25mg tab] 25 mg PO BID 07/13/20 07/13/20 Unknown History allopurinoL [Zyloprim] 100 mg PO QDAY 07/13/20 07/13/20 Unknown History cloNIDine [Catapres] 0.3 mg PO BID 07/13/20 07/13/20 Unknown History Famotidine [Pepcid] 10 mg PO BID tablet 07/19/20 Unknown Rx Metoprolol [Lopressor TAB] 50 mg PO BID tablet 07/19/20 Unknown Rx NIFEdipine XL [Procardia Xl] 60 mg PO Q12HR tablet 07/19/20 Unknown Rx Valsartan [Diovan] 160 mg PO Q12H tablet 07/19/20 Unknown Rx hydrALAZINE [Apresoline TAB] 50 mg PO Q8HR tablet 07/19/20 Unknown Rx Mupirocin [Bactroban 2% OINT] 1 applic NS BID tube 01/19/21 Unknown Rx Active Meds: Active Medications Acetaminophen (Acetaminophen 325 Mg Tab) 650 mg PO Q4H PRN PRN Reason: Pain MILD(1-3)/Fever >100.5/MATUTE Albuterol (Albuterol 2.5 Mg/3 Ml Nebu) 2.5 mg IH Q4HRT PRN PRN Reason: Shortness Of Breath Allopurinol (Allopurinol 100 Mg Tab) 100 mg PO QDAY [facility] Aspirin (Aspirin Ec 81 Mg Tab) 81 mg PO DAILY [facility] Atorvastatin Calcium (Atorvastatin 10 Mg Tab) 10 mg PO QHS [facility] Last Admin: 03/05/22 00:31 Dose: 10 mg Clonidine HCl (Clonidine 0.1 Mg Tab) 0.3 mg PO BID [facility] Last Admin: 03/04/22 22:08 Dose: 0.3 mg Famotidine (Famotidine 10 Mg Tab) 10 mg PO BID [facility] Last Admin: 03/04/22 22:08 Dose: 10 mg Hydralazine HCl (Hydralazine 25 Mg Tab) 50 mg PO Q8HR [facility] Last Admin: 03/05/22 06:06 Dose: 50 mg Hydromorphone HCl (Hydromorphone 0.5 Mg/0.5 Ml Inj) 0.5 mg IV Q23H PRN PRN Reason: Pain , Severe (7-10) Metoprolol Tartrate (Metoprolol Tartrate 50 Mg Tab) 50 mg PO BID [facility] Last Admin: 03/04/22 22:07 Dose: 50 mg Miscellaneous Medication (Gabapentin [Neurontin]) 200 mg PO Q2D [facility] Nifedipine (Nifedipine Xl 60 Mg Tab) 60 mg PO Q12HR [facility] Last Admin: 03/05/22 00:31 Dose: 60 mg Ondansetron HCl (Ondansetron 4 Mg/2 Ml Inj) 4 mg IV Q8H PRN PRN Reason: Nausea And Vomiting Sodium Chloride (Sodium Chloride 0.9% 10 Ml Flush Syringe) 10 ml IV BID [facility] Last Admin: 03/04/22 22:10 Dose: 10 ml Sodium Chloride (Sodium Chloride 0.9% 10 Ml Flush Syringe) 10 ml IV PRN PRN PRN Reason: LINE FLUSH Tamsulosin HCl (Tamsulosin 0.4 Mg Cap) 0.4 mg PO QDAY [facility] Valsartan (Valsartan 160mg Tab) 160 mg PO Q12H [facility] Last Admin: 03/05/22 08:04 Dose: Not Given Venlafaxine HCl (Venlafaxine 25 Mg Tab) 25 mg PO BID [facility] Last Admin: 03/05/22 00:31 Dose: 25 mg Review of Systems ROS unobtainable: due to mental status Exam - Vital Signs Vital signs: Vital Signs Temp Pulse Resp BP Pulse Ox 98.1 F 114 H 16 173/97 100 03/04/22 14:59 03/04/22 14:59 03/04/22 14:59 03/04/22 14:59 03/04/22 14:59 - General Appearance General appearance: chronically ill, frail EENT: ATNC Neck: Present: neck supple Respiratory: Clear to Ascultation Heart: regular Gastrointestinal: Present: normal Integumentary: warm and dry Neurologic: confused Musculoskeletal: Present: deferred Psychiatric: cooperative Results - Lab Results 03/04/22 15:56 03/05/22 06:07 Most recent lab results Calcium 8.6 mg/dL (8.4-10.2) 03/05/22 06:07 Assessment and Plan - Patient Problems (1) Asphyxiation due to food in respiratory tract Current Visit: Yes Status: Acute Qualifiers: Encounter type: initial encounter Qualified Code(s): T17.920A - Food in respiratory tract, part unspecified causing asphyxiation, initial encounter Plan to address problem: Clinically stable at this time. Chest x-ray reviewed. We will continue to monitor closely. (2) Hypertensive chronic kidney disease with stage 5 chronic kidney disease or end stage renal disease Current Visit: Yes Status: Chronic Plan to address problem: Monitor blood pressures under current regimen. (3) Type 2 diabetes mellitus with diabetic chronic kidney disease Current Visit: No Status: Acute Plan to address problem: Diabetes management per primary attending. (4) ESRD (end stage renal disease) Current Visit: Yes Status: Chronic Plan to address problem: Placed on his regular Sunday//Sunday hemodialysis schedule. No acute dialysis needs at this time
[2022-03-05] MEDS ORDERED: SODIUM CHLORIDE 0.9% 100 ML IV PRN (08:44)
[2022-03-05] MEDS ORDERED: EPOETIN ALFA-EPBX 10,000 UNIT/1 ML VIAL IV PRN (08:44)
[2022-03-05] MEDS: TAMSULOSIN 0.4 MG CAP PO SCH (09:19)
[2022-03-05] MEDS: allopurinoL 100 MG TAB PO SCH (09:19)
[2022-03-05] MEDS: ASPIRIN EC 81 MG TAB PO SCH (09:19)
[2022-03-05] MEDS: FAMOTIDINE 10 MG TAB PO SCH ×2 (09:19→21:03)
[2022-03-05] MEDS: cloNIDine 0.1 MG TAB PO SCH ×2 (09:20→21:11)
[2022-03-05] MEDS: METOPROLOL TARTRATE 50 MG TAB PO SCH ×2 (09:20→21:05)
[2022-03-05] MEDS ORDERED: NON-FORMULARY EACH (Atorvastatin Calcium [Lipitor] 80 MG Tablet) PO SCH (10:00)
--- NOTE | 2022-03-05 21:33 | Electrocardiograph Report ---
[facility] Test Date: 2022-03-04 Test Time: 16:16:23 Pat Name: SHARON SIM JR Department: Room: A451 1 Gender: M Service Line Coordinator: TISH : 1945 Requested By: CAROLINE ABRAHAM Order Number: [id number] Reading MD: Abhilash Friend Measurements Intervals [place] Rate: 91 P: 50 MA: 164 QRS: 37 QRSD: 89 T: 141 QT: 391 QTc: 474 Interpretive Statements Sinus rhythm Atrial premature complex Nonspecific T abnrm, anterolateral leads No previous ECG available for comparison Electronically Signed On 03-05-2022 21:33:39 EDT by Abhilash Friend
[2022-03-06] MEDS: hydrALAZINE 25 MG TAB PO SCH ×3 (06:40→23:07)
[2022-03-06] MEDS: VALSARTAN 160MG TAB PO SCH ×2 (06:40→21:06)
[2022-03-06] MEDS: VENLAFAXINE 25 MG TAB PO SCH ×2 (09:27→23:05)
[2022-03-06] MEDS: allopurinoL 100 MG TAB PO SCH (09:28)
[2022-03-06] MEDS: METOPROLOL TARTRATE 50 MG TAB PO SCH ×2 (09:28→23:09)
[2022-03-06] MEDS: ASPIRIN EC 81 MG TAB PO SCH (09:28)
[2022-03-06] MEDS: cloNIDine 0.1 MG TAB PO SCH ×2 (09:28→23:08)
[2022-03-06] MEDS: FAMOTIDINE 10 MG TAB PO SCH ×2 (09:28→23:05)
[2022-03-06] MEDS: TAMSULOSIN 0.4 MG CAP PO SCH (09:28)
[2022-03-06] MEDS: NIFEdipine XL 60 MG TAB PO SCH ×2 (09:29→23:09)
--- NOTE | 2022-03-06 14:01 | Progress Note ---
Assessment and Plan (1) Asphyxiation due to food in respiratory tract Current Visit: Yes Status: Acute Qualifiers: Encounter type: initial encounter Qualified Code(s): T17.920A - Food in respiratory tract, part unspecified causing asphyxiation, initial encounter Plan to address problem: Chest x-ray, supplemental oxygen, pulse oximetry, aspiration precautions, neuro check, supportive care. (2) Acidosis Current Visit: Yes Status: Acute Plan to address problem: Supportive care, BMP, repeat BMP in a.m., dialysis as per renal team. (3) Accelerated hypertension Current Visit: Yes Status: Acute Plan to address problem: Monitor blood pressure every shift, continue medical management, IV hydralazine every 6 hours as needed for systolic blood pressure greater than or equal to 155 mmHg. (4) DVT prophylaxis Current Visit: Yes Status: Acute Plan to address problem: SCD to bilateral lower extremities while in bed (5) Advance care planning Current Visit: Yes Status: Acute Plan to address problem: Disease education data, care plan discussed, diagnoses discussed, prognosis discussed, patient full code, +30 minutes. (6) ESRD (end stage renal disease) Current Visit: Yes Status: Acute Plan to address problem: Patient family counseled regarding home safety, aspiration precautions, outpatient follow-up with primary care physician for all age and risk factor appropriate screening tests, as well as dementia screening. +30 minutes. -- Consult speech therapy, advance diet as tolerated. Patient will be discharged home when cleared by speech therapy Subjective Date of service: 03/05/22 Interval history: Patient seen and examined. Medical records and medication list reviewed. No acute event overnight noted by the RN. Patient denies any chest pain or difficulty breathing. Patient is tolerating diet. Discussed plan of care at bedside with patient. Objective - Exam Narrative Exam: GENERAL: well-developed and elderly -[place] male lying on bed appeared to be in no discomfort. HEENT: Normocephalic. Atraumatic. No conjunctival congestion or icterus. Patient has moist mucous membranes. NECK: Supple. Trachea midline. CHEST/LUNGS: Clear to auscultated bilaterally, breathing nonlabored. No wheezes crackles or rhonchi. HEART/CARDIOVASCULAR: Regular in rate and rhythm. S1 and S2 positive. ABDOMEN: Abdomen is soft, nontender. Patient has normal bowel sounds. SKIN: There is no rash. Warm and dry. NEURO: No focal motor deficit. Follows command. MUSCULOSKELETAL: No joint effusion or tenderness. EXTRIMITY: No edema, no cyanosis or clubbing. PSYCH: Cooperative. - Constitutional Vitals: Vital Signs - 12hr 03/06/22 03/06/22 03/06/22 05:56 06:40 07:17 Temperature 98.5 F 99.9 F H Pulse Rate 75 75 77 Pulse Rate [ From Monitor] Respiratory 18 18 Rate Blood Pressure 131/61 131/61 131/63 O2 Sat by Pulse 91 95 Oximetry 03/06/22 03/06/22 03/06/22 07:40 09:34 11:00 Temperature Pulse Rate 75 Pulse Rate [ 75 From Monitor] Respiratory 18 Rate Blood Pressure O2 Sat by Pulse 95 96 Oximetry - Labs CBC & Chem 7: 03/04/22 15:56 03/05/22 06:07 Labs: Abnormal lab results 03/05/22 03/05/22 03/06/22 Range/Units 16:35 21:21 08:32 POC Glucose 198 H 195 H 153 H (70-105) mg/dL 03/06/22 Range/Units 11:07 POC Glucose 204 H (70-105) mg/dL HEART Score - HEART Score Troponin: Troponin T 0.299 ng/mL (0.00-0.029) H* 03/04/22 15:56
--- NOTE | 2022-03-06 14:06 | Discharge Summary ---
Providers - Providers Date of Admission: 03/04/22 18:28 Date of discharge: 03/06/22 Attending physician: SINDY SHELTON 03/04/22 18:19 Consult to Physician [CONS] Urgent Comment: Consulting Provider: HAYDEN ACOSTA Physician Instructions: Reason For Exam: ESRD 03/05/22 10:42 Speech Therapy Evaluation and Treat [CONS] Routine Reason For Exam: aspiration 03/06/22 09:33 Physical Therapy Evaluation and Treat [CONS] Routine Comment: Reason For Exam: Debility Primary care physician: COAL WHEELER Hospitalization Condition: Fair Hospital course: Pleasantly demented 76-year-old ill-appearing -[place]ian male with a past medical history of hypertension, diabetes, and end-stage renal disease, who is on a current Sunday//Sunday hemodialysis schedule, presented to the emergency department after choking on a turkey sandwich after his dialysis treatment. Apparently Heimlich maneuver was applied by staff without any improvement. EMS was called and apparently had to do a laryngoscopy in order to retrieve a piece of turkey sandwich from the patient. He is utilizing a right IJ permacath at this time for his dialysis needs. Seems that his left upper extremity AV fistula is clotted off at this time. Patient was admitted to the hospital, nephrology was consulted. Patient did not have any acute dialysis need. However he was monitored with renal diet and no escalation or episode of asphyxia noted. Patient was also evaluated by speech therapy. He was recommended to eat mechanical soft diet and was discharged home with in stable condition. Disposition: 01 HOME / SELF CARE / HOMELESS Final Discharge Diagnosis (Prints w/discharge instructions): --Asphyxiation due to food in respiratory tract. -- Metabolic acidosis due to end-stage renal disease. -- Hypertension, uncontrolled. -- End-stage renal disease on dialysis. -- Diabetes mellitus type 2 Time spent for discharge: 34 minutes Core Measure Documentation - Palliative Care Palliative Care/ Comfort Measures: Not Applicable - Core Measures Any of the following diagnoses?: none Exam - Physical Exam Narrative exam: GENERAL: well-developed and elderly -[place] male lying on bed appeared to be in no discomfort. HEENT: Normocephalic. Atraumatic. No conjunctival congestion or icterus. Patient has moist mucous membranes. NECK: Supple. Trachea midline. CHEST/LUNGS: Clear to auscultated bilaterally, breathing nonlabored. No wheezes crackles or rhonchi. HEART/CARDIOVASCULAR: Regular in rate and rhythm. S1 and S2 positive. ABDOMEN: Abdomen is soft, nontender. Patient has normal bowel sounds. SKIN: There is no rash. Warm and dry. NEURO: No focal motor deficit. Follows command. MUSCULOSKELETAL: No joint effusion or tenderness. EXTRIMITY: No edema, no cyanosis or clubbing. PSYCH: Cooperative. - Constitutional Vitals: Temp Pulse Resp BP Pulse Ox 99.9 F H 75 18 131/63 96 03/06/22 07:17 03/06/22 11:00 03/06/22 11:00 03/06/22 07:17 03/06/22 11:00 Plan Activity: fall precautions Diet: renal (Mechanical soft diet) Follow up with: PRIMARY CAREMD [Primary Care Provider] - 3-5 Days
[2022-03-06 16:04] LABS: Hepatitis B Surface Antigen Non-Reactive (Negative); Hepatitis C Virus Antibody Non-Reactive (NonReactive)
[2022-03-07] MEDS: hydrALAZINE 25 MG TAB PO SCH ×2 (05:57→14:54)
[2022-03-07] MEDS: VALSARTAN 160MG TAB PO SCH (07:52)
[2022-03-07] MEDS: ASPIRIN EC 81 MG TAB PO SCH (09:15)
[2022-03-07] MEDS: FAMOTIDINE 10 MG TAB PO SCH (09:15)
[2022-03-07] MEDS: TAMSULOSIN 0.4 MG CAP PO SCH (09:15)
[2022-03-07] MEDS: allopurinoL 100 MG TAB PO SCH (09:15)
[2022-03-07] MEDS: NIFEdipine XL 60 MG TAB PO SCH (09:16)
[2022-03-07] MEDS: METOPROLOL TARTRATE 50 MG TAB PO SCH (09:17)
[2022-03-07] MEDS: cloNIDine 0.1 MG TAB PO SCH (09:17)
[2022-03-07] MEDS: VENLAFAXINE 25 MG TAB PO SCH (09:39)
[2022-03-07] MEDS ORDERED: SODIUM CHLORIDE 0.9% 100 ML IV PRN (10:00)
[2022-03-07] MEDS ORDERED: GABAPENTIN 100 MG CAP PO SCH (10:00)
--- NOTE | 2022-03-07 10:59 | Discharge Summary ---
Providers - Providers Date of Admission: 03/04/22 18:28 Date of discharge: 03/07/22 Attending physician: ANGELICA ROOT 03/04/22 18:19 Consult to Physician [CONS] Urgent Comment: Consulting Provider: HAYDEN ACOSTA Physician Instructions: Reason For Exam: ESRD 03/05/22 10:42 Speech Therapy Evaluation and Treat [CONS] Routine Reason For Exam: aspiration 03/06/22 09:33 Physical Therapy Evaluation and Treat [CONS] Routine Comment: Reason For Exam: Debility Primary care physician: CORDWAINER Hospitalization Reason for admission: Choking on turkey sandwich/ESRD on hemodialysis Condition: Fair Pertinent studies: Chest x-ray; no acute abnormality Hospital course: Pleasantly demented 76-year-old ill-appearing -Turkish male with a past medical history of hypertension, diabetes, and end-stage renal disease, who is on a current Sunday//Sunday hemodialysis schedule, presented to the emergency department after choking on a turkey sandwich after his dialysis treatment. Apparently Heimlich maneuver was applied by staff without any improvement. EMS was called and apparently had to do a laryngoscopy in order to retrieve a piece of turkey sandwich from the patient. He is utilizing a right IJ permacath at this time for his dialysis needs. Seems that his left upper extremity AV fistula is clotted off at this time. Patient was admitted to the hospital, nephrology was consulted. Patient did not have any acute dialysis need. However he was monitored with renal diet and no escalation or episode of asphyxia noted. Patient was also evaluated by speech therapy. He was recommended to eat mechanical soft diet and is being discharged today after d ialysis Patient is being discharged to [facility] today Discharge diagnosis; --Asphyxiation due to food in respiratory tract --Metabolic acidosis -- Accelerated hypertension -- DVT prophylaxis= --Advance care planning -- ESRD (end stage renal disease) on hemodialysis TTS --speech therapy, evaluated the patient and recommended mechanical soft diet and cleared for discharge Patient is being discharged to [facility] today Disposition: 01 HOME / SELF CARE / HOMELESS Final Discharge Diagnosis (Prints w/discharge instructions): --Asphyxiation due to food in respiratory tract. -- Metabolic acidosis due to end-stage renal disease. -- Hypertension, uncontrolled. -- End-stage renal disease on dialysis. -- Diabetes mellitus type 2 Time spent for discharge: 40 min Core Measure Documentation - Palliative Care Palliative Care/ Comfort Measures: Not Applicable - Core Measures Any of the following diagnoses?: none Exam - Constitutional Vitals: Temp Pulse Resp BP Pulse Ox 100.0 F H 82 18 128/56 96 03/07/22 05:32 03/07/22 07:52 03/07/22 05:32 03/07/22 07:52 03/07/22 08:29 General appearance: Present: no acute distress, well-nourished - EENT Eyes: Present: PERRL, EOM intact - Neck Neck: Present: supple, normal ROM - Respiratory Respiratory effort: normal Respiratory: bilateral: diminished, negative: rales, rhonchi, wheezing - Cardiovascular Rhythm: regular Heart Sounds: Present: S1 & S2 - Extremities Extremities: no ischemia, No edema - Abdominal General gastrointestinal: Present: soft, non-tender, non-distended, normal bowel sounds - Integumentary Integumentary: Present: clear, warm - Musculoskeletal Musculoskeletal: strength equal bilaterally, generalized weakness - Psychiatric Psychiatric: appropriate mood/affect, cooperative - Neurologic Neurologic: CNII-XII intact, moves all extremities Plan Activity: advance as tolerated, fall precautions Diet: other (Mechanical soft diet) Additional Instructions: Follow renal/hemodialysis per schedule. Continue other home medications as before. Fall precautions. Aspiration precautions. If patient has worsening symptoms he has to contact contact the primary MD or go to the nearest emergency room as needed. Strongly advised to comply with medications, diet, follow-up visits, dialysis per schedule Follow up with: PRIMARY CARE, [Primary Care Provider] - 3-5 Days KAREL MODI DO [Staff Physician] - 7 Days
[2022-03-07 13:58] VITALS: BP 170/74
--- NOTE | 2022-03-07 14:33 | Progress Note ---
Assessment and Plan - Patient Problems (1) Asphyxiation due to food in respiratory tract Current Visit: Yes Status: Acute Qualifiers: Qualified Code(s): T17.920A - Food in respiratory tract, part unspecified causing asphyxiation, initial encounter Plan to address problem: Clinically stable at this time. Chest x-ray reviewed. We will continue to monitor closely. (2) Hypertensive chronic kidney disease with stage 5 chronic kidney disease or end stage renal disease Current Visit: Yes Status: Chronic Plan to address problem: Monitor blood pressures under current regimen. (3) Type 2 diabetes mellitus with diabetic chronic kidney disease Current Visit: No Status: Acute Plan to address problem: Diabetes management per primary attending. (4) ESRD (end stage renal disease) Current Visit: Yes Status: Chronic Plan to address problem: Placed on his regular Sunday//Sunday hemodialysis schedule. From renal standpoint he is stable for DC after HD today. Subjective Date of service: 03/07/22 Interval history: No acute events reported. For HD today. Objective - Vital Signs Vital signs: Vital Signs - 12hr 03/07/22 03/07/22 03/07/22 05:32 05:57 07:25 Temperature 100.0 F H Pulse Rate 83 83 83 Pulse Rate [ From Monitor] Respiratory 18 Rate Blood Pressure 104/55 104/55 O2 Sat by Pulse 93 Oximetry O2 Sat by Pulse Oximetry [ Bilateral Throughout] 03/07/22 03/07/22 03/07/22 07:52 08:00 08:29 Temperature Pulse Rate 82 Pulse Rate [ 82 From Monitor] Respiratory 14 Rate Blood Pressure 128/56 O2 Sat by Pulse 93 96 Oximetry O2 Sat by Pulse Oximetry [ Bilateral Throughout] 03/07/22 03/07/22 03/07/22 10:30 10:32 10:45 Temperature 98.9 F Pulse Rate 80 80 79 Pulse Rate [ From Monitor] Respiratory 18 Rate Blood Pressure 139/63 132/67 138/68 O2 Sat by Pulse Oximetry O2 Sat by Pulse 96 Oximetry [ Bilateral Throughout] 03/07/22 03/07/22 03/07/22 11:00 11:15 11:30 Temperature Pulse Rate 79 79 80 Pulse Rate [ From Monitor] Respiratory Rate Blood Pressure 141/71 144/64 139/71 O2 Sat by Pulse Oximetry O2 Sat by Pulse Oximetry [ Bilateral Throughout] 03/07/22 03/07/2203/07/22 11:45 12:00 12:15 Temperature Pulse Rate 80 80 80 Pulse Rate [ From Monitor] Respiratory Rate Blood Pressure 150/74 143/74 147/73 O2 Sat by Pulse Oximetry O2 Sat by Pulse Oximetry [ Bilateral Throughout] 03/07/22 03/07/22 03/07/22 12:30 12:45 13:00 Temperature Pulse Rate 80 80 81 Pulse Rate [ From Monitor] Respiratory Rate Blood Pressure 151/77 154/77 132/52 O2 Sat by Pulse Oximetry O2 Sat by Pulse Oximetry [ Bilateral Throughout] 03/07/22 03/07/22 03/07/22 13:15 13:30 13:32 Temperature Pulse Rate 82 83 80 Pulse Rate [ From Monitor] Respiratory Rate Blood Pressure 132/65 149/75 152/75 O2 Sat by Pulse Oximetry O2 Sat by Pulse Oximetry [ Bilateral Throughout] 03/07/22 13:53 Temperature 98.8 F Pulse Rate 79 Pulse Rate [ From Monitor] Respiratory 17 Rate Blood Pressure 170/74 O2 Sat by Pulse Oximetry O2 Sat by Pulse 97 Oximetry [ Bilateral Throughout] - General Appearance General appearance: appears stated age EENT: ATNC Neck: no JVD Respiratory: Present: Clear to Ascultation Cardiology: regular Gastrointestinal: normal Integumentary: no rash Neurologic: no focal deficit Musculoskeletal: deferred - Lab 03/04/22 15:56 03/05/22 06:07 Most recent lab results Calcium 8.6 mg/dL (8.4-10.2) 03/05/22 06:07 - Allied health notes Allied health notes reviewed: nursing Medications & Allergies - Medications Allergies/Adverse Reactions: Allergies acetaminophen [From Percocet] Allergy (Verified 03/04/22 15:06) Unknown oxycodone [From Percocet] Allergy (Verified 03/04/22 15:06) Unknown lisinopril Adverse Reaction (Verified 03/04/22 15:06) Unknown Home Medications: Home Medications Medication Instructions Recorded Confirmed Last Taken Type Aspirin [Adult Aspirin] 81 mg PO DAILY 07/13/20 07/13/20 Unknown History Atorvastatin Calcium [Lipitor] 10 mg PO DAILY 07/13/20 07/13/20 Unknown History Gabapentin [Neurontin] 200 mg PO Q2D 07/13/20 07/13/20 Unknown History Insulin Glargine [Lantus VIAL] 5 unit SUB-Q BID 07/13/20 07/13/20 Unknown History Tamsulosin [Flomax] 0.4 mg PO QDAY 07/13/20 07/13/20 Unknown History Venlafaxine [Effexor 25mg tab] 25 mg PO BID 07/13/20 07/13/20 Unknown History allopurinoL [Zyloprim] 100 mg PO QDAY 07/13/20 07/13/20 Unknown History cloNIDine [Catapres] 0.3 mg PO BID 07/13/20 07/13/20 Unknown History Famotidine [Pepcid] 10 mg PO BID tablet 07/19/20 Unknown Rx Metoprolol [Lopressor TAB] 50 mg PO BID tablet 07/19/20 Unknown Rx NIFEdipine XL [Procardia Xl] 60 mg PO Q12HR tablet 07/19/20 Unknown Rx Valsartan [Diovan] 160 mg PO Q12H tablet 07/19/20 Unknown Rx hydrALAZINE [Apresoline TAB] 50 mg PO Q8HR tablet 07/19/20 Unknown Rx Mupirocin [Bactroban 2% OINT] 1 applic NS BID tube 01/19/21 Unknown Rx Active Medications: Generic Name Dose Route Start Last Admin Trade Name Freq PRN Reason Stop Dose Admin Acetaminophen 650 mg 03/04/22 18:28 03/05/22 09:22 Acetaminophen 325 Mg Tab PO 650 mg Q4H PRN Administration Pain MILD(1-3)/Fever >100.5/MATUTE Albuterol 2.5 mg 03/04/22 18:28 Albuterol 2.5 Mg/3 Ml Nebu IH Q4HRT PRN Shortness Of Breath Allopurinol 100 mg 03/05/22 10:00 03/07/22 09:15 Allopurinol 100 Mg Tab PO 100 mg QDAY TAMAR Administration Aspirin 81 mg 03/05/22 10:00 03/07/22 09:15 Aspirin Ec 81 Mg Tab PO 81 mg DAILY TAMAR Administration Atorvastatin Calcium 10 mg 03/04/22 22:00 03/06/22 23:06 Atorvastatin 10 Mg Tab PO 10 mg QHS TAMAR Administration Clonidine HCl 0.3 mg 03/04/22 22:00 03/07/22 09:17 Clonidine 0.1 Mg Tab PO Not Given BID TAMAR Epoetin John-epbx 10,000 unit 03/05/22 08:44 03/07/22 13:47 Epoetin John-Epbx 10,000 Unit/1 Ml Vial IV 10,000 unit RADHA PRN Administration hemodialysis Famotidine 10 mg 03/04/22 22:00 03/07/22 09:15 Famotidine 10 Mg Tab PO 10 mg BID TAMAR Administration Gabapentin 200 mg 03/07/22 10:00 03/07/22 09:15 Gabapentin 100 Mg Cap PO 200 mg Q48HR TAMAR Administration Hydralazine HCl 50 mg 03/04/22 22:00 03/07/22 05:57 Hydralazine 25 Mg Tab PO Not Given Q8HR TAMAR Hydromorphone HCl 0.5 mg 03/04/22 18:28 Hydromorphone 0.5 Mg/0.5 Ml Inj IV Q23H PRN Pain , Severe (7-10) Sodium Chloride 100 mls @ 999 mls/hr 03/07/22 10:00 Nacl 0.9% IV RADHA PRN Hypotension Metoprolol Tartrate 50 mg 03/04/22 22:00 03/07/22 09:17 Metoprolol Tartrate 50 Mg Tab PO Not Given BID TAMAR Nifedipine 60 mg 03/04/22 22:00 03/07/22 09:16 Nifedipine Xl 60 Mg Tab PO Not Given Q12HR TAMAR Ondansetron HCl 4 mg 03/04/22 18:28 Ondansetron 4 Mg/2 Ml Inj IV Q8H PRN Nausea And Vomiting Sodium Chloride 10 ml 03/04/22 22:00 03/06/22 23:10 Sodium Chloride 0.9% 10 Ml Flush Syringe IV 10 ml BID TAMAR Administration Sodium Chloride 10 ml 03/04/22 18:28 Sodium Chloride 0.9% 10 Ml Flush Syringe IV PRN PRN LINE FLUSH Tamsulosin HCl 0.4 mg 03/05/22 10:00 03/07/22 09:15 Tamsulosin 0.4 Mg Cap PO 0.4 mg QDAY TAMAR Administration Valsartan 160 mg 03/04/22 19:00 03/07/22 07:52 Valsartan 160mg Tab PO 160 mg Q12H TAMAR Administration Venlafaxine HCl 25 mg 03/04/22 22:00 03/06/22 23:05 Venlafaxine 25 Mg Tab PO 25 mg BID TAMAR Administration
== END 2022-03-07 15:05 | DRG 205 ==
LOC: ED 14:55 → 4A 18:28
PROVIDERS: ADMIT Internal Medicine; ATTEND Internal Medicine
PROC: 5A1D70Z Performance of Urinary Filtration, Intermittent, Less than 6 Hours Per Day (ICD-10-PCS; principal; 2022-03-07)
DX: T17.820A Food in other parts of respiratory tract causing asphyxiation, initial encounter (principal); N18.6 End stage renal disease; E87.2 Acidosis; I13.2 Hypertensive heart and chronic kidney disease with heart failure and with stage 5 chronic kidney disease, or end stage renal disease; I50.9 Heart failure, unspecified; E11.22 Type 2 diabetes mellitus with diabetic chronic kidney disease; N40.0 Benign prostatic hyperplasia without lower urinary tract symptoms; M10.9 Gout, unspecified; E11.42 Type 2 diabetes mellitus with diabetic polyneuropathy; X58.XXXA Exposure to other specified factors, initial encounter; J45.909 Unspecified asthma, uncomplicated; F03.90 Unspecified dementia, unspecified severity, without behavioral disturbance, psychotic disturbance, mood disturbance, and anxiety; Z86.718 Personal history of other venous thrombosis and embolism; Z79.01 Long term (current) use of anticoagulants; Z99.2 Dependence on renal dialysis; Y93.89 Activity, other specified; Y92.89 Other specified places as the place of occurrence of the external cause; Y99.8 Other external cause status; Z88.8 Allergy status to other drugs, medicaments and biological substances; Z88.5 Allergy status to narcotic agent; Z79.899 Other long term (current) drug therapy
CPT/HCPCS: 36415; 71045; 80048; 80061; 80074; 82550; 82553; 82962; 84484; 85025; 87040; 93005; 94640; 94760; G0378; J0885